=== PATIENT | male | born 1960 | race Caucasian/White ===

== ENCOUNTER 2019-01-17 22:49 | Inpatient (IN) ==
--- NOTE | 2019-01-17 23:39 | EKG Report ---
Test Performed on : 01/17/2019 11:14:55 PM Test Reason : ams Blood Pressure : / mmHG Vent. Rate : 070 BPM Atrial Rate : 070 BPM P-R Int : 126 ms QRS Dur : 084 ms QT Int : 418 ms P-R-T Axes : 041 031 054 degrees QTc Int : 451 ms Normal sinus rhythm. with sinus arrhythmia. Junctional ST depression, probably normal Borderline ECG No previous ECGs available Unconfirmed Result
[2019-01-18 00:02] LABS: BASO# 0.02 X1000 (0.0-0.2); BASO% 0.1 % (0.0-0.8); EOS# 0.01 X1000 (0.0-0.7); HEMATOCRIT 50.5 % (42.0-52.0); HEMOGLOBIN 16.6 g/dL (14.0-18.0); IMM GRAN% 0.4 % (0.0-0.5); LYMPH# 2.18 X1000 (1.2-3.4); LYMPH% 7.8 % (20.5-51.1); MCH 28.6 PG (27-31); MCHC 32.9 g/dL (33-37); MCV 86.9 FL (81-99); MPV 11.7 FL (7.4-10.4); NEUT# 22.67 X1000 (1.4-6.5); NEUT% 80.7 % (42.2-75.2); PLT 287 X1000 (130-400); RBC 5.81 XMIL (4.7-6.1); RDW 13.6 % (11.5-14.5); WBC 28.08 X1000 (4.8-10.8)
[2019-01-18 00:08] LABS: INR 1.03; PROTIME 13.6 Seconds (11.0-16.0)
[2019-01-18 00:24] LABS: AGAP 21; ALB/GLOB RATIO 1.3; ALKALINE PHOSPHATASE 47 U/L (32-122); BUN 49 mg/dL (8-22); CALCIUM 10.5 mg/dL (8.8-10.2); CHLORIDE 98 mmol/L (98-107); COSMO 301; CREATININE 1.3 mg/dL (0.7-1.2); ESTIMATED GFR 57; GLUCOSE 146 mg/dL (70-104); GOT 323 U/L (10-34); GPT 76 U/L (10-44); POTASSIUM 4.3 mmol/L (3.5-5.1); SODIUM 143 mmol/L (136-145); TCO2 24 mmol/L (25-35); TOTAL PROTEIN 8.9 g/dL (6.3-8.3)
[2019-01-18] MEDS ORDERED: NS 1,000 ML IV ONE (00:27)
[2019-01-18 00:35] LABS: CK TOTAL > 20000 U/L (24-204)
--- NOTE | 2019-01-18 01:04 | PROVIDER DOCUMENTATION ---
This chart was entered by Meryl Wilson Scribe, acting as scribe for Raulito Licea MD. HPI-General Adult - General Chief Complaint: Stroke-Like Symptoms Stated Complaint: AMS Time Seen by Provider: 01/17/19 23:01 Source: EMS Unable to obtain history due to:: altered Allergies/Adverse Reactions: Patient Allergies Allergy/AdvReac Type Severity Reaction Status Date / Time No Known Allergies Allergy Verified 01/17/19 23:53 Home Medications: Home Medication List Medication Instructions Recorded Confirmed Last Taken Type Alprazolam 0.5 - 1 mg PO BID PRN 01/17/19 01/17/19 Unknown History Atenolol 01/17/19 01/17/19 Unknown History Duloxetine HCl 30 mg PO BID 01/17/19 01/17/19 Unknown History Hydrocodone/APAP 10 mg/325 mg 10 - 325 mg PO Q8H PRN 01/17/19 01/17/19 Unknown History [[place]-10] Morphine Sulfate [Morphine Sulfate 30 mg PO Q12H PRN 01/17/19 01/17/19 Unknown History ER] - History of Present Illness -Gen Adult Nature of Presenting Problems: pt is a 58 yr old male presenting via EMS from home, per EMS pt was found tonight lying in the floor by PD after family called for a welfare check. pt has not been seen or spoke to since Thursday morning, pt has right side facial droop, slurred speech and does not follow commands. pt smells strongly of urine. pt does admit to falling but unsure when. Review of Systems - Adult - REVIEW OF SYSTEMS - ADULT ROS:: unobtainable per condition Constitutional: reports: no symptoms reported Past History - Adult - PAST MEDICAL HISTORY-ADULT Review of Records: reports: Nursing Assessment Review, Medications Reviewed, Social history reviewed & non-contributory. Major Childhood Illnesses: reports: denies history Cardiovascular: reports: denies history Respiratory: reports: denies history Gastrointestinal: reports: denies history Obstetrical/Gynecological: reports: denies history Genitourinary: reports: denies history Musculoskeletal: reports: denies history Neurological: reports: denies history Endocrine/Immune: reports: denies history Other Conditions: reports: denies history - IMMUNIZATION STATUS Childhood Immunizations: See Nurse Assessment Flu Vaccine: See Nurse Assessment - FAMILY HISTORY Family History: reviewed, not pertinent - SOCIAL HISTORY Living Situation: alone Physical Exam-General - PHYSICAL EXAM-ADULT Exam Limited by: pt does not follow commands Initial Vital Signs Reviewed: Yes - CONSTITUTIONAL General Appearance: slow to respond, obtunded, other (right facial droop) - RESPIRATORY Respiratory: lungs clear, normal breath sounds, no respiratory distress, no accessory muscle use - CARDIOVASCULAR Cardiovascular: normal peripheral pulses, regular rate, rhythm - GASTROINTESTINAL (ABDOMEN) Abdominal Exam: non tender, soft - LYMPHATIC Lymphatic: no adenopathy - SKIN Integumentary: diaphoresis, decubitus (4x4cm decubitis ucler to right hip), ecchymosis (bruising to right lateral, anterior ribs), pallor, other (blisters to right shoulder creases) - NEUROLOGIC Neurologic: facial droop (right facial droop), other (slurred speech) - PSYCHIATRIC Psych/Mental Status: disheveled Progress - PLAN OF CARE/RESULTS Progress/Plan/Lab Results: Orders Category Date Time Status CT HEAD/C-SPINE W/O CONTRAST [CT] Stat Exams 01/17/19 22:55 Ordered Result Diagrams: 01/17/19 23:48 01/17/19 23:48 - XRAY 1 XRAY Study: Pelvis, Hip Impression: See EMR Report Comparison with other Films: no prior study 2 XRAY Study: Chest Impression: See EMR Report Comparison with other Films: no prior study - CT/MRI 1 CT Study: Cervical Spine, Head Impression: Abnormal, See EMR Report Comparison with other Films: no prior study - CONSULTS/PCP/HOSPITALIST Notification #1 *Consult/PCP/Hospitalist*: Dr Mitchell Time Discussed: 23:45 Reason/Comments: discussed paln of care for possible admit Consult Disposition: other (consult neuro for possible transfer) Departure - Departure Date of Disposition Decision: 01/18/19 Time of Disposition Decision: 01:03 DIAGNOSIS: Acute right MCA stroke Rhabdomyolysis Qualifiers: Rhabdomyolysis type: non-traumatic Qualified Code(s): M62.82 - Rhabdomyolysis Decubitus ulcer Qualifiers: Pressure injury location: buttock Pressure injury stage: stage 2 Laterality: right Qualified Code(s): L89.312 - Pressure ulcer of right buttock, stage 2 Disposition: ADMITTED INPATIENT 09 Certified Medical Emergency: Emergent Condition: Stable Referrals and Follow-Ups: None,PCP [Primary Care Provider] - - Critical Care Note This patient required my direct & personal management of CC.: Yes Total Time (mins): 39 Critical Care Statement: This patient required my direct personal management to treat or rule out processes, the absence of which, could potentiallly result in sudden, clinically significant life or limb threatening deterioration. Attestation - Physician/ MAL Attestation Patient care was provided by Advanced Practice Provider:: No The physician spent face to face time with patient:: Yes Advanced Practice Provider documentation review:: Supervising physician onsite and consulted in the evaluation and care of this patient. The physician did have a face to face encounter with the patient. This chart was documented by the indicated scribe, (Meryl Wilson Scribe) and accurately reflects the services I performed and decisions made by me, Raulito Gracia MD, as attested by the provider's signature.
[2019-01-18] MEDS ORDERED: OFIRMEV 1000 MG/ISOTONIC SOLN 1,000 MG/100 ML BOTTLE IV ONE (02:49)
[2019-01-18] MEDS ORDERED: NS 1,000 ML IV SCH (03:15)
[2019-01-18] MEDS: ZOSYN 3.375 GM in NS 50 ML IV SCH ×4 (03:54→20:58)
--- NOTE | 2019-01-18 06:14 | Diag Imaging Result Doc PS360 ---
PELVIS - 01/17/2019 INDICATION: fall TECHNIQUE: One view COMPARISON: None FINDINGS: Positioning is improper. No obvious fractures. No dislocation. There is mild bilateral hip osteoarthritis. IMPRESSION: No definite acute injury. Electronically signed by Cameron Sainz 01/18/2019 6:12 AM
--- NOTE | 2019-01-18 06:21 | Diag Imaging Result Doc PS360 ---
CHEST-1 VIEW - 01/17/2019 INDICATION: stroke like symptoms COMPARISON: None FINDINGS: There is right hemidiaphragm elevation. There is some mild nonspecific atelectasis or infiltrate throughout the right lung. The left lung appears grossly clear. Heart size is normal. IMPRESSION: Nonspecific findings. Electronically signed by Cameron Sainz 01/18/2019 6:18 AM
--- NOTE | 2019-01-18 07:24 | Diag Imaging Result Doc PS360 ---
EXAM: CT HEAD/C-SPINE W/O CONTRAST INDICATION: ams TECHNIQUE: This exam was performed using automated exposure control, adjustment of mA or kV according to patient size, and/or use of iterative reconstruction technique. COMPARISON: None. FINDINGS: Head: There is multifocal hypodensity in the right MCA distribution involving the temporal, frontal, and parietal lobes and including the right basal ganglion consistent with a recent infarct, likely subacute. There is minimal right ventricular effacement and mild sulcal effacement on the right as a result of the associated edema. No discrete mass or intracranial hemorrhage is appreciated. The surrounding soft tissues are essentially unremarkable. The calvaria is intact. C-spine: There has been prior anterior cervical fusion at C5-6. Metallic hardware is in place. There is mild endplate degenerative change at several other cervical levels with small marginal osteophytes. The central canal appears to be largely patent. Otherwise, there is no discrete fracture, subluxation, or intrinsic osseous lesion. The surrounding soft tissues are essentially unremarkable. IMPRESSION: 1.Recent right MCA distribution infarct as described that is likely subacute. 2.Postsurgical and mild degenerative changes but no evidence of fracture or other definite acute C-spine injury. Electronically signed by Shakeel Chris 01/18/2019 7:21 AM
[2019-01-18] MEDS ORDERED: ZYVOX 600 MG/D5W 600 MG/300 ML IVPB IV SCH (08:30)
--- NOTE | 2019-01-18 09:23 | Diag Imaging Result Doc PS360 ---
EXAM: MRI BRAIN W/WO CONTRAST INDICATION: CVA COMPARISON: CT head dated 01/17/2019. No prior MRI brain is available for comparison. FINDINGS: There is a known acute or early subacute infarct involving the right MCA distribution that was also seen on the previous CT. There is patchy multifocal restricted diffusion in involving the right frontal, temporal, and parietal lobes including significant involvement of the right basal ganglion. There is corresponding T2/FLAIR hyperintensity. There is associated mild effacement of the right lateral ventricle and mild sulcal effacement on the right related to cytotoxic edema from the recent infarct. There is no evidence of intracranial mass or intracranial hemorrhage. There are diminished flow voids involving the right MCA and their virtually absent flow voids involving the distal right ICA with little enhancement indicating occlusion. Otherwise, no abnormal intracranial enhancement is appreciated. The surrounding soft tissues and bony structures are essentially unremarkable. IMPRESSION: Recent infarct involving the right MCA distribution as detailed above that was also seen on CT. Please see above discussion. Electronically signed by Shakeel Chris 01/18/2019 9:21 AM
--- NOTE | 2019-01-18 09:26 | PROGRESS NOTE ---
DATE: 01/18/2019 SUBJECTIVE: The patient is lying bed. He is not able to move his left side. He is following commands on and off. He is able to say his name and date of but his speech is slurred. He has a recent right MCA distribution infarction likely subacute. I do not have any family members at the bedside but the patient apparently was found yesterday night on the floor by PD after family called for a Welfare Check. Apparently, the last time they talked to him was Thursday morning. He has leukocytosis. He has kidney injury, probably aspiration pneumonia, rhabdomyolysis. OBJECTIVE: Vital Signs: Temperature 99.5, pulse 111, respiratory rate 40, blood pressure 145/95, oxygen saturation 96 on 5 L of nasal cannula. HEENT: Head normocephalic. No trauma. He has left-sided facial weakness. Neck: Supple. No JVD. Central trachea. Chest: Coarse breath sounds bilaterally with some crepitus, rhonchi at the bases. Abdomen: Soft, nontender, nondistended. No hepatosplenomegaly. Extremities: No edema, no clubbing, no cyanosis. Skin: He has multiple pressure ulcers including his right upper arm, his right hip, his right chest, and right lateral area/metatarsal area of the right great toe. Also, he has a lesion probably because of pressures with his T-shirt at the level of the right upper armpit/axilla. Neurological examination: This patient alert. He is able to say his name and date of . His speech is slurred. He has left-sided weakness, and the strength of the right side is maybe 2-3/5 mostly upper extremity. LABORATORY: I will ask for a new CBC, CMP today. Laboratory from yesterday, WBC 28, hemoglobin 16.6, hematocrit 50.5, platelet count 287. Sodium 143, potassium 4.3, chloride 98, bicarbonate 24, BUN 49, creatinine 1.3, glucose 146, calcium 10.5, total bilirubin 1.2, AST 223, ALT 76, alkaline phosphatase 47. CK level more than 2000. ProBNP 445. Lactate level 3.3. ASSESSMENT AND PLAN: 1. Likely subacute right middle cerebral artery stroke. This patient has been placed on aspirin. We need to find out if this patient is able to swallow but I do not believe so. Neurology Department has been consulted. Blood pressure has been mostly in the 140s. Will monitor for now. 2. Sepsis like due to aspiration pneumonia. He does have leukocytosis, elevated lactic acid. He is tachypneic and tachycardic. He has been placed on broad-spectrum antibiotics, which I will continue. 3. Acute kidney injury with rhabdomyolysis. I have requested an evaluation by Nephrology Department. CK level is more than 20,000. He has been placed on IV fluids, which I will continue for now. I have requested also a new CMP today. 4. Hyperglycemia. I am not sure if this patient has a history of diabetes. I will ask for a hemoglobin A1c to rule it out. 5. Dehydration. Continue with IV fluids. 6. Multiple pressure ulcers. Will monitor for now. 7. Elevated liver function tests. I do not have previous records of this patient. Probably due to dehydration. Continue IV fluid. CRITICAL CARE TIME: 35 minutes. Neurology Department and Nephrology Department consulted. cc: Dru Marroquin MD
[2019-01-18 09:28] LABS: BASO# 0.03 X1000 (0.0-0.2); BASO% 0.1 % (0.0-0.8); HEMATOCRIT 47.7 % (42.0-52.0); IMM GRAN# 0.08 X1000 (0.0-0.04); IMM GRAN% 0.3 % (0.0-0.5); MCH 29.5 PG (27-31); MCHC 33.5 g/dL (33-37); MONO# 3.17 X1000 (0.11-0.59); MONO% 11.6 % (1.7-9.3); MPV 11.8 FL (7.4-10.4); NEUT# 21.91 X1000 (1.4-6.5); PLT 260 X1000 (130-400); RBC 5.42 XMIL (4.7-6.1); RDW 13.6 % (11.5-14.5); WBC 27.39 X1000 (4.8-10.8)
--- NOTE | 2019-01-18 09:30 | HISTORY AND PHYSICAL ---
PRIMARY CARE PHYSICIAN: Unknown. CHIEF COMPLAINT: Altered mental status, slurred speech. HISTORY OF PRESENTING ILLNESS: A 58-year-old male with a history of hypertension, who apparently was found by his family members on the floor being altered and having slurred speech. As per family members the last time they had contact with the patient was about 2 days ago. It seems that he possibly may have been on the floor for the past 2 days. He was brought to the emergency department. He had a CT of the head done which did show a right MCA stroke. His case was discussed with the stroke neurologist at [facility] who stated that he is not a tPA candidate and could remain at [facility] to be managed. The patient is a poor historian. Most of the history is obtained from family members. PAST MEDICAL HISTORY: Hypertension. PAST SURGICAL HISTORY: Bilateral ankle surgery and cervical fusion. ALLERGIES TO: Eggs. CURRENT MEDICATIONS: He does not know and nursing staff will reconcile. SOCIAL HISTORY: He is a former smoker. Currently was vaping. History of alcohol abuse in the past. History of drug use in the past. FAMILY HISTORY: No history of coronary disease. REVIEW OF SYSTEM: Unable to obtain due to patient's current condition. PHYSICAL EXAMINATION: GENERAL: The patient seems ill-appearing, seems to have increased respiratory rate. VITAL SIGNS: Temperature 101.1 degrees, pulse 75, respirations 22, blood pressure 145/96. HEENT: Atraumatic, normocephalic. PERRLA. NECK: No masses. CHEST: Rhonchi. CARDIOVASCULAR: Regular rate and rhythm. ABDOMEN: Soft. Positive bowel sounds. EXTREMITIES: Trace edema. NEUROLOGIC: He is awake and arousable. He follows some commands. Strength 0/5 left upper and lower extremity. 4/5 right upper extremity and right lower extremity. Speech is slurred. : No bladder distention. SKIN: Warm. LABORATORIES AND STUDIES: Sodium 143, potassium 4.3, chloride 98, CO2 24, BUN is 49, creatinine is 1.3, glucose 146. Creatine kinase is 20,000. WBCs 28.08, hemoglobin 16.6, hematocrit 50.5, platelets 287,000. CT of the head shows acute MCA infarct. ASSESSMENT: This is a 58-year-old male with a history of hypertension, who was brought to the emergency department after being found on the floor. It seems that he has been lying on the floor for the past 2 days. He was evaluated in the emergency department. He had a CT of the head, which did show acute MCA stroke. His case was discussed with stroke neurologist in [facility] who stated that he is not a tPA candidate and can remain at [facility] to be managed. Subsequently patient will be admitted to ICU for further management. 1. Acute CVA. 2. Probable aspiration pneumonia. 3. Leukocytosis. 4. Rhabdomyolysis. PLAN: 1. We will admit patient to ICU. 2. Continue with stroke workup. 3. Consult Neurology. 4. We will schedule patient for MRI of the brain. 5. We will check blood cultures. Start patient on IV antibiotics. 6. We will check his laboratories. 7. We will continue with IV fluid hydration. 8. Put patient on DVT prophylaxis SCD. 9. The patient's condition is guarded. Discussed this with family member. 10. We will continue to follow and reassess. Make further recommendation based on patient's clinical course. cc: Calderon Mitchell MD
[2019-01-18 09:39] LABS: MAGNESIUM 2.2 mg/dL (1.5-2.7); PHOSPHORUS 3.3 mg/dL (2.7-4.5)
[2019-01-18 09:45] LABS: ALB/GLOB RATIO 1.1; ALBUMIN 3.8 g/dL (3.5-5.0); CALCIUM 8.9 mg/dL (8.8-10.2); CREATININE 1.3 mg/dL (0.7-1.2); POTASSIUM 3.8 mmol/L (3.5-5.1); TOTAL BILIRUBIN 1.13 mg/dL (0.20-1.00); TOTAL PROTEIN 7.4 g/dL (6.3-8.3)
[2019-01-18 10:01] LABS: BANDS 4 % (0-1); LYMPHS 6 % (21-51); MONO 4 % (1-9); SEGS 86 % (42-75)
[2019-01-18] MEDS: ASPIRIN PO SCH (10:06)
[2019-01-18] MEDS: SODIUM BICARBONATE 8.4% 50 MEQ in D5 1/2 NS 1,000 ML IV SCH ×2 (10:46→20:58)
[2019-01-18] MEDS: ZYVOX 600 MG/D5W 600 MG/300 ML IVPB IV SCH ×2 (10:47→23:54)
--- NOTE | 2019-01-18 13:34 | NEPHROLOGY CONSULTATION ---
DATE: 01/18/2019 REASON FOR CONSULTATION: Rhabdomyolysis. HISTORY OF PRESENT ILLNESS: Mr. Jose is a 58-year-old, white male that we have never seen before. He has a creatinine of 1.3 on presentation but, again, we have no past history. He was found down at home and was probably down for several days before being brought into the hospital where he had slurred speech. Awake and alert but flaccid on the left. He underwent an initial evaluation in the emergency room which included blood pressure 145/96, with temperature 101.[address] head performed on the found recent right MCA infarct that is subacute and postsurgical changes that were chronic in the C-spine. His initial CK was greater than 20,000. He has been treated with IV fluid resuscitation and he has had 400 mL of urine output. We were asked to consult and assist with management of his rhabdomyolysis and minimizing risk for acute kidney injury. PAST MEDICAL HISTORY: As above. He also has a history of hypertension. HOME MEDICATIONS: Include fluoxetine, hydrocodone, morphine ER, alprazolam, atenolol. ALLERGIES: None. SOCIAL HISTORY: Not obtainable. FAMILY HISTORY: Not obtainable. REVIEW OF SYSTEMS: Are not obtainable. The patient is awake and he follows simple commands but he was nonverbal. PHYSICAL EXAMINATION: Vital Signs: Blood pressure 145/95, heart rate 111, respirations 40, temperature 99.5 degrees. General: Middle-aged man, chronically ill, no distress. Skin: Warm and dry. Conjunctivae are pink. Pupils are equal. Oropharynx is dry. Neck: Neck veins are not distended. Trachea is midline. Heart: Regular. No gallops. Lungs: Equal, shallow. No crackles. Abdomen: Soft, nontender. Bowel sounds present. No organomegaly, masses, or bruits. Extremities: No edema, clubbing, or cyanosis. Neurologic Examination: He is flaccid on the left. He is able to move his right hand and foot to command but eyeglass fitter strength is very weak. IMPRESSION: Rhabdomyolysis. His creatinine is 1.3 but it has not risen over the first 10 hours of admission. Likely, this is baseline chronic kidney disease secondary to his hypertension. We will check urine electrolytes, urinalysis, urine protein, etc. Renal ultrasound. I will change his intravenous fluids to contain sodium bicarbonate and infuse at 100 mL an hour. Monitor his CK on a daily basis and continue intravenous fluids. No other changes. cc: Evgeny Goldstein MD
--- NOTE | 2019-01-18 15:21 | ECHO REPORT ---
ORDER DATE: 01/18/2019 INDICATION: CVA. FINDINGS: 1. The right atrium appears normal in size at 3.7 cm. 2. Mild tricuspid regurgitation. 3. Normal RV size and systolic function. 4. No significant pulmonic insufficiency. 5. Normal left atrial size with a volume index of 20. 6. No mitral prolapse. Trace mitral regurgitation. 7. Normal LV size, end-diastolic dimension of 4.6. Normal wall thicknesses with a posterior and interventricular septal wall thickness 1.1 and 0.9 cm respectively. Normal LV systolic function. Estimated EF is 60%. No obvious wall motion abnormalities but limited visualization of the endocardial borders. 8. Aortic valve opens well. It is trileaflet. No evidence of stenosis or insufficiency. 9. Aorta appears normal in visualized segments. 10. No pericardial effusion seen. cc: MD Calderon Grande MD
[2019-01-18 15:24] LABS: URINE SOURCE CATH
[2019-01-18 15:37] LABS: BILIRUBIN URINE NEGATIVE (NEGATIVE); BLOOD URINE MODERATE (NEGATIVE); COLOR YELLOW; GLUCOSE URINE 300 mg/dL (NEGATIVE); KETONE URINE NEGATIVE (NEGATIVE); LEUKOCYTES URINE NEGATIVE (NEGATIVE); NITRITE URINE NEGATIVE (NEGATIVE); PROTEIN URINE 70 mg/dL (NEGATIVE); SP GRAVITY URINE 1.039; TURBIDITY URINE CLEAR (CLEAR); UROBILINOGEN URINE NORMAL (NORMAL)
[2019-01-18 15:47] LABS: UR EPITHELIAL CELLS <10 /HPF (<10); URINE BACTERIA NEGATIVE /HPF; URINE RBC <10 /HPF (<10); URINE WBC <10 /HPF (<10)
--- NOTE | 2019-01-18 16:30 | Diag Imaging Result Doc PS360 ---
EXAM: US RENAL 2 (RETROPER) COMPLETE HISTORY: decreased renal function TECHNIQUE: Renal ultrasound COMPARISON: None. FINDINGS: The right kidney measures 10.4 x 4.5 x 4.6 cm. Normal renal echotexture and cortical thickness. No renal stone or hydronephrosis. No renal mass. The left kidney measures 9.3 x 4.4 x 4.6 cm. Normal renal echotexture and cortical thickness. No renal stones or hydronephrosis. No renal mass. The urinary bladder is not distended. IMPRESSION: Normal renal ultrasound. Electronically signed by Sukhjinder Valdes 01/18/2019 4:28 PM
[2019-01-18 16:34] LABS: URINE CRYSTALS URIC ACID PRESENT; URINE YEAST NONE SEEN
--- NOTE | 2019-01-18 20:41 | CONSULTATION ---
DATE OF CONSULTATION: 01/18/2019 REASON FOR CONSULTATION: Stroke. HISTORY OF PRESENT ILLNESS: This is a 58-year-old, male who presented yesterday evening for admission. History is from the patient's sister and neighbor. The patient was last spoken to on Thursday, 2 days ago, and he was last seen, I believe, on Thursday. On Thursday, the neighbor says his speech was slurred when he was on the phone, and he complained he did not feel well. Ultimately, he was found down last night after a welfare check. He had left-sided weakness and slurred speech. He was confused. Blood pressure on arrival was 145/96. Head CT showed recent right MCA distribution infarct likely subacute. MRI today again showed recent infarct in the right MCA distribution felt to be acute to early subacute. There is not a personal history of stroke, seizure or major neurologic event. His sister tells me that for the last year or 2 the patient has become paranoid. He has worried that the FBI is listening in to his phone calls and watching him though his TV. He believes people are out to get him. She tells me that there has been passed drug abuse of some sort, though the patient denies this. PAST MEDICAL HISTORY: Hypertension, cervical fusion, bilateral ankle surgery, anxiety. FAMILY HISTORY: Positive for stroke in mother. SOCIAL HISTORY: He lives alone. He is a former smoker and does currently vape. There is a history of drug abuse per his sister, though the patient denies it. I believe there was occasional alcohol in the past. ALLERGIES: Reviewed in the chart. MEDICATIONS: He was not taking antiplatelet or blood thinner per family. They believe he was taking lisinopril possibly for high blood pressure. He was also taking Xanax REVIEW OF SYSTEMS: Balance of 12 conducted and is otherwise negative except that detailed in the HPI. PHYSICAL EXAMINATION: Vital signs: Current afebrile, early this morning 101, blood pressure 150/96, pulse 96, respirations 18, 97% on room air. Mr. Jose is supine in bed with head of bed elevated. He is awake, a little bit drowsy but easily wakes, reasonably attentive. He is able to state his name, location, [facility], the president. He said the year was 1918. He did not state the month. He followed simple commands. There was no language disturbance on bedside testing. He is dysarthric and at times difficult to understand. Pupils appear to be equal, round and reactive, although he vigorously resists passive eye opening after shutting them in response to bright light stimulus. Gaze is conjugate, and there is a right gaze preference. He directs his eyes to the midline, but I did not get him to cross beyond that point. He attends more from the right compared to the left, but he does attend from the left. There is a right lower facial droop. He does not participate well. There may be a left field cut. There is a left hemiparesis involving the arm more than leg. 2/5 in the arm. He is at least 4/5 on the right, although he continues to not participate entirely with the exam in general. Reflexes are 2+ brisk in the knees. Could not get ankle jerks, and there is limited mobility about the ankles. Plantar responses upgoing on the left, downgoing on the right. Could not elicit clonus. He does not participate with [id number] and rapid alternating movements. He responds to noxious stimuli in his extremities. DIAGNOSTICS: As per above MRI was personally reviewed. Again recent infarct involving the right MCA distribution with mild effacement of the right lateral ventricle and mild sulcal effacement on the right. There is mention of diminished flow voids involving the right MCA and virtually absent flow void involving the distal right ICA with little enhancement indicating occlusion. LABORATORY DATA: White count 27, BUN 45, creatinine of 1.3, AST 323, ALT 76. Blood cultures are pending. ASSESSMENT AND PLAN: 1. Acute to subacute right middle cerebral artery distribution ischemic stroke. Last known normal was 4 days ago. Typical stroke workup is underway. Agree with aspirin. Cautious blood pressure management. Avoid hypotension. Continue neuro checks. PT, OT, speech therapy for swallow evaluation if this has not already been done. There is some effacement associated with the ischemic region on imaging, though clinically he appears stable on my exam. Would continue with neuro checks and wound repeat the head CT should worsening symptoms occur or if he has difficulty arousing, headache, vomiting. 2. There seems to be mild encephalopathy. This could be multifactorial in the setting of acute kidney injury. 3. Elevated liver function tests and possible sepsis. Continue to monitor for clinical improvement as his underlying medical conditions are improved. Thank you for the consultation. cc: Jessica Sauceda MD
[2019-01-18] MEDS ORDERED: ZOFRAN IV PRN (21:08)
[2019-01-18] MEDS: MORPHINE IV PRN (21:17)
[2019-01-18 21:41] LABS: UR CREAT RANDOM 113.6 mg/dL (14-26)
[2019-01-19] MEDS: ZOSYN 3.375 GM in NS 50 ML IV SCH ×2 (03:10→08:26)
[2019-01-19] MEDS: MORPHINE IV PRN ×2 (03:51→10:37)
[2019-01-19 04:57] LABS: BASO# 0.01 X1000 (0.0-0.2); HEMATOCRIT 47.9 % (42.0-52.0); HEMOGLOBIN 15.9 g/dL (14.0-18.0); IMM GRAN# 0.08 X1000 (0.0-0.04); IMM GRAN% 0.4 % (0.0-0.5); LYMPH# 2.52 X1000 (1.2-3.4); LYMPH% 11.1 % (20.5-51.1); MCH 29.3 PG (27-31); MCHC 33.2 g/dL (33-37); MCV 88.4 FL (81-99); MONO% 12.4 % (1.7-9.3); MPV 11.7 FL (7.4-10.4); NEUT% 76.1 % (42.2-75.2); PLT 231 X1000 (130-400); RBC 5.42 XMIL (4.7-6.1); RDW 13.5 % (11.5-14.5); WBC 22.61 X1000 (4.8-10.8)
[2019-01-19 05:11] LABS: HEMOGLOBIN A1C 5.7 % (4.8-6.0)
[2019-01-19 05:16] LABS: LYMPHS 8 % (21-51); MONO 6 % (1-9); SEGS 86 % (42-75)
[2019-01-19 05:49] LABS: AGAP 16; ALB/GLOB RATIO 0.8; ALBUMIN 3.1 g/dL (3.5-5.0); ALKALINE PHOSPHATASE 40 U/L (32-122); BUN 32 mg/dL (8-22); CALCIUM 8.3 mg/dL (8.8-10.2); CHLORIDE 108 mmol/L (98-107); COSMO 304; CREATININE 1.1 mg/dL (0.7-1.2); ESTIMATED GFR > 60; GLUCOSE 175 mg/dL (70-104); GOT 164 U/L (10-34); GPT 77 U/L (10-44); POTASSIUM 3.6 mmol/L (3.5-5.1); SODIUM 147 mmol/L (136-145); TCO2 23 mmol/L (25-35); TOTAL BILIRUBIN 0.89 mg/dL (0.20-1.00); TOTAL PROTEIN 6.9 g/dL (6.3-8.3)
--- NOTE | 2019-01-19 06:50 | Diag Imaging Result Doc PS360 ---
CHEST-1 VIEW - 01/19/2019 INDICATION: R/O pneumonia COMPARISON: 01/17/2019 FINDINGS: Lung volumes are improved. There is some faint questionable atelectasis or infiltrate in the left lung base. The right lung appears clear. Heart size is normal. IMPRESSION: Nonspecific findings. Electronically signed by Cameron Sainz 01/19/2019 6:48 AM
[2019-01-19] MEDS: CYMBALTA PO SCH ×2 (08:26→20:51)
[2019-01-19] MEDS: ASPIRIN PO SCH (08:26)
[2019-01-19] MEDS: MS CONTIN PO PRN ×2 (08:27→22:35)
--- NOTE | 2019-01-19 08:32 | PROGRESS NOTE ---
DATE: 01/19/2019 SUBJECTIVE: This patient is still lying in bed. He is not able to move his left side. He has been following commands on and off. At this moment, he is more sleepy because he just received pain medication. I will ask Occupational Therapy to evaluate this patient also. His urine output seems to be better, as well as BUN and creatinine, he is slightly hypernatremic but he has been on D5 half NS and since this patient passed a swallow evaluation, I requested the nurse to give him more water. I will recheck a BMP today in the afternoon. PHYSICAL EXAMINATION: Vital signs: Temperature 98.7 degrees, pulse 124, respiratory rate 38, blood pressure 123/88. Oxygen saturation 94% on 5 L nasal cannula/ HEENT: Head normocephalic, no trauma. PERRLA. Left-sided facial weakness. Neck: Supple. No JVD. Central trachea. Chest: Coarse breath sounds bilaterally with bilateral crackles and rhonchi at the bases. Abdomen: Soft, nontender, nondistended. No hepatosplenomegaly. Extremities: No edema no clubbing no cyanosis. Skin: He has multiple pressure ulcers including his right upper arm, his right hip, his right chest and right lateral area/metatarsal area of the right great toe. Also, he has a probably pressure lesion at the level of the right armpit/axilla, probably due to contact with his T-shirt. Neurological: Patient is sleepy at this moment, yesterday he was able to say his name and date of . His speech was slurred, but at this moment, he is sleepy because he just received pain medication. LABORATORY DATA: WBC 22.6, hemoglobin 15.9, hematocrit 47.9, platelet 231,000. Sodium 147, potassium 3.6, chloride 108, bicarbonate 23, BUN 32, creatinine 1.1, glucose 175, calcium 8.3. Total bilirubin 0.89, AST 164, ALT 77, alkaline phosphatase 40, CK level 8221, albumin 3.1. ASSESSMENT AND PLAN: 1. Acute to subacute right middle cerebral artery distribution ischemic stroke. Continue with aspirin. Last time he was seen normal apparently was last Thursday, 4 to 5 days ago. This patient passed a swallow evaluation. He has been placed on a pureed diet. We will increase the water intake since he is a little bit hypernatremic and I will continue with the same management for now. 2. Sepsis, likely due to aspiration pneumonia. He also has a positive blood culture 2/2 that showed gram-positive cocci. He is on Zyvox and I will continue with Zosyn as well. I will request an evaluation by Infectious Disease Department, I will avoid nephrotoxic medications. 3. Acute kidney injury with rhabdomyolysis. Nephrology Department on board. We will continue with IV fluids, half normal saline with bicarbonate. We will monitor this patient closely. It looks like he is getting better. Urine output is improving. 4. Hyperglycemia with a hemoglobin A1c of 5.7. We will monitor for now. No diabetes. 5. Dehydration. He seems to be euvolemic now. Continue with IV fluids. 6. Multiple pressure ulcers, will monitor for now. Probably one of them can be the source of infection. 7. Elevated liver function test, likely due to sepsis. I do not have any previous records of liver function tests on this patient. We will continue with IV fluids. They are getting better. 8. Sepsis, with a positive culture that showed gram-positive cocci. He is tachypneic and tachycardic. Probably also he has aspiration pneumonia. 9. Likely aspiration pneumonia. X-ray today showed a left lower lung infiltrate. I will continue with both Zosyn and linezolid to cover this patient. Also I have requested an evaluation by Infectious Disease Department. 10. Nutritional status. This patient has been evaluated already and he passed a swallow evaluation, he has been placed on a pureed diet, and I have requested to give him more water due to his mild hypernatremia. 11. Mild hypernatremia, as above. CRITICAL CARE TIME: 35 minutes. cc: Dru Marroquin MD
[2019-01-19] MEDS: SODIUM BICARBONATE 8.4% 50 MEQ in D5 1/2 NS 1,000 ML IV SCH ×2 (08:36→19:44)
[2019-01-19] MEDS ORDERED: LASIX IV ONE ×2 (09:05→10:28)
--- NOTE | 2019-01-19 09:53 | EKG Report ---
Test Performed on : 01/19/2019 03:29:21 AM Test Reason : ICU. NO EKG ORDER FOR MUSE Blood Pressure : / mmHG Vent. Rate : 151 BPM Atrial Rate : 151 BPM P-R Int : 116 ms QRS Dur : 066 ms QT Int : 328 ms P-R-T Axes : 075 027 026 degrees QTc Int : 519 ms Sinus tachycardia. Nonspecific ST abnormality Abnormal ECG When compared with ECG of 17-JAN-2019 23:14, (Unconfirmed) Vent. rate has increased BY 81 BPM T wave inversion now evident in Inferior leads Confirmed by Oscar Ashton MD ([id number]) on 01/20/2019 7:41:51 PM
[2019-01-19] MEDS: ZYVOX 600 MG/D5W 600 MG/300 ML IVPB IV SCH (10:37)
[2019-01-19] MEDS ORDERED: ROCEPHIN 2 GM in NS 50 ML IV SCH (12:00)
--- NOTE | 2019-01-19 12:39 | PROGRESS NOTE ---
DATE: 01/19/2019 SUBJECTIVE: Mr. Jose has recent right hemisphere stroke. Dr. Sauceda saw him yesterday. He presented with slurred speech and left-sided weakness. There is question of baseline cognitive and/or personality change. There was evidence of aspiration pneumonia. Recent systolic blood pressures have ranged 100s to 120s. Brain MRI showed findings consistent with acute right hemisphere infarction. On exam, he seemed to be sleeping, but was easily awake and alert. He was attentive to me and followed simple commands with his right limbs. He moved his right arm purposefully. He did not move the left limbs spontaneously or to command. Left arm is flaccid. There appears to be left hemianopia, but findings on visual field testing are inconsistent. When I held his left hand in his right visual field, he identified it as a hand and said "it must be my hand," but he did not seem convinced the hand belonged to him. He could not answer correctly with proprioception testing in the left fingers. I do not have anything to add to Dr. Sauceda's impression and suggestions yesterday. He seems to be stable and improving with nondominant right hemisphere infarction. Further plans will depend on his clinical course. I discussed uncertain prognosis with sister at the bedside. Thanks for asking Neurology to see Mr. Jose. cc: MD CLAIRE Mchugh III
--- NOTE | 2019-01-19 14:06 | EKG Report ---
Test Performed on : 01/19/2019 11:50:26 AM Test Reason : TACHYCARDIA Blood Pressure : / mmHG Vent. Rate : 131 BPM Atrial Rate : 131 BPM P-R Int : 122 ms QRS Dur : 068 ms QT Int : 338 ms P-R-T Axes : 046 010 037 degrees QTc Int : 499 ms Sinus tachycardia. Nonspecific ST abnormality Abnormal ECG When compared with ECG of 19-JAN-2019 03:29, (Unconfirmed) No significant change was found Confirmed by Oscar Ashton MD ([id number]) on 01/20/2019 7:42:55 PM
--- NOTE | 2019-01-19 14:24 | INFECTIOUS DISEASE CONSULT REP ---
DATE: 01/19/2019 CONCLUSION: Patient is admitted to the hospital with a stroke. He has a gram-positive coccal bacteremia, the exact origin of which is uncertain to me. He may have a pneumonia and the gram- positive coccus could be a pneumococcus. His urinalysis does not show any bacteria or white cell, so I doubt the gram-positive coccus is coming from a urinary tract infection. His examination of his abdomen was not tender at all and I doubt that the gram-positive coccus originated from his abdomen. RECOMMENDATIONS: I have switched the patient to Rocephin. The patient will require a 6-week course of IV antibiotics because he has metal in his ankles and most likely in his cervical spine also and these structures could have become infected hematogenously. DISCUSSION: The patient was not able to give a history. He was admitted to the hospital and found to have a stroke. [place] [address], hemoglobin 15.9, platelet count 231,000. Creatinine is 1.1. GFR is greater than 60. The AST is 164. Urinalysis showed no white cells or bacteria. MRI of the brain showed an infarct. Chest x-ray shows left lower lobe infiltrate/atelectasis. Echocardiogram showed no vegetations. REVIEW OF SYSTEMS: Unfortunately I was unable to get this from the patient. PAST MEDICAL HISTORY: Positive for hypertension, aortic insufficiency PAST SURGICAL HISTORY: Positive for bilateral ankle surgery and cervical fusion. ALLERGIES: No drug allergies. Patient's chart lists allergies to chicken, eggs and mayonnaise. MEDICATIONS TAKEN AT HOME: Include alprazolam, atenolol, duloxetine, hydrocodone, and morphine. SOCIAL HISTORY: Patient lives in [place]. He is . He lives alone, has a dog as a pet. He stopped smoking cigarettes 30 years ago. According to his sister, he does not use illicit drugs and he is not an alcoholic. FAMILY HISTORY: Positive for myocardial infarction and stroke. PREVIOUS HOSPITALIZATIONS AND OPERATIONS: He has had dental implants done and also he has had surgery on his ankle and cervical spine. PHYSICAL EXAMINATION: Vital Signs: Temperature is 99.5 degrees, pulse 116, respiratory rate 36, blood pressure 121/80. Patient is 185 pounds. General: This is an obese, middle-aged male. He is in no acute distress. Head/Eyes/Ears/Nose/Throat: I really could not determine how well he could hear my spoken words or see near objects. He does not have any drainage from his nose or ears. Neck: No meningismus. Lungs: Clear to auscultation. Cardiovascular: Regular heart rate. Abdomen: Soft and nontender. Neurologic: The patient does not have a tremor. He did move his right hand and right foot. He appeared to have a left hemiplegia. Integument: No rash noted. Thank you for the consult. cc: Mansoor Chamberlain MD
--- NOTE | 2019-01-19 18:12 | Diag Imaging Result Doc PS360 ---
EXAM: US ABDOMEN-COMPLETE HISTORY: bacteremia TECHNIQUE: Abdominal ultrasound COMPARISON: None. FINDINGS: The pancreas, aorta, and inferior vena cava are obscured. There is fatty infiltration of the liver. It is difficult to penetrate. The lower pole the right kidney is poorly seen. No right-sided hydronephrosis. The gallbladder is distended. No stones. The common bile duct measures 4 mm. Normal left kidney. No hydronephrosis. Normal spleen. No ascites. IMPRESSION: Fatty infiltration of the liver Electronically signed by Sukhjinder Valdes 01/19/2019 6:09 PM
--- NOTE | 2019-01-19 19:48 | NEPHROLOGY PROGRESS NOTE ---
DATE: 01/19/2019 SUBJECTIVE: He has been able to talk to the staff. He is asleep and difficult to arouse currently. OBJECTIVE: Blood pressure 122/90, heart rate 125, respirations 36, temperature 99.5 degrees.General: No acute distress. Skin: Warm and dry. Neck: Neck veins are not distended. Heart: Regular and tachycardic. Lungs: Equal breath sounds. No crackles. Abdomen: Soft. Bowel sounds present. Extremities: No edema, clubbing, or cyanosis. IMPRESSION AND PLAN: Rhabdomyolysis. CK is improving, 8200 today. He has not suffered acute kidney injury in the presence of his rhabdomyolysis. He does have modest hypernatremia today with sodium 147. His IV fluids are hyponatremic with sodium of 125. We will continue these as ordered. cc: Evgeny Goldstein MD
[2019-01-20 05:35] LABS: BASO# 0.01 X1000 (0.0-0.2); BASO% 0.1 % (0.0-0.8); HEMATOCRIT 44.3 % (42.0-52.0); HEMOGLOBIN 14.3 g/dL (14.0-18.0); IMM GRAN# 0.07 X1000 (0.0-0.04); IMM GRAN% 0.4 % (0.0-0.5); LYMPH# 2.45 X1000 (1.2-3.4); LYMPH% 13.6 % (20.5-51.1); MCH 29.3 PG (27-31); MCHC 32.3 g/dL (33-37); MCV 90.8 FL (81-99); MONO# 2.03 X1000 (0.11-0.59); MONO% 11.3 % (1.7-9.3); MPV 12.4 FL (7.4-10.4); NEUT# 13.43 X1000 (1.4-6.5); NEUT% 74.6 % (42.2-75.2); PLT 174 X1000 (130-400); RBC 4.88 XMIL (4.7-6.1); RDW 13.5 % (11.5-14.5); WBC 17.99 X1000 (4.8-10.8)
[2019-01-20 06:28] LABS: AGAP 15; ALB/GLOB RATIO 0.8; ALBUMIN 2.9 g/dL (3.5-5.0); ALKALINE PHOSPHATASE 42 U/L (32-122); BUN 30 mg/dL (8-22); CALCIUM 8.1 mg/dL (8.8-10.2); CHLORIDE 106 mmol/L (98-107); COSMO 305; CREATININE 1.1 mg/dL (0.7-1.2); ESTIMATED GFR > 60; GLUCOSE 145 mg/dL (70-104); GOT 122 U/L (10-34); GPT 68 U/L (10-44); PHOSPHORUS 2.5 mg/dL (2.7-4.5); POTASSIUM 3.3 mmol/L (3.5-5.1); SODIUM 149 mmol/L (136-145); TCO2 28 mmol/L (25-35); TOTAL BILIRUBIN 0.54 mg/dL (0.20-1.00); TOTAL PROTEIN 6.4 g/dL (6.3-8.3)
[2019-01-20] MEDS: SODIUM BICARBONATE 8.4% 50 MEQ in D5 1/2 NS 1,000 ML IV SCH (06:46)
--- NOTE | 2019-01-20 07:33 | Diag Imaging Result Doc PS360 ---
EXAM: CHEST-PORTABLE INDICATION: dyspnea TECHNIQUE: One view COMPARISON: 01/19/2019 FINDINGS: The trace opacity at the left lung base that probably represents mild atelectasis is approximately stable. No new consolidation is identified. Cardiac silhouette is stable. IMPRESSION: Stable chest. Electronically signed by Shakeel Chris 01/20/2019 7:31 AM
[2019-01-20] MEDS: ASPIRIN PO SCH (08:55)
[2019-01-20] MEDS: CYMBALTA PO SCH ×2 (08:55→21:07)
[2019-01-20] MEDS: D5W 1,000 ML IV SCH (10:53)
[2019-01-20] MEDS ORDERED: VANCOMYCIN IV PER PHARMACY MISC SCH (11:30)
--- NOTE | 2019-01-20 12:24 | PROGRESS NOTE ---
DATE: 01/20/2019 SUBJECTIVE: Mr. Jose has developed some right arm edema and evaluation of that is in progress. Sister at the bedside reports he seems a little bit more sluggish today, and she has attributed that to his recent pain medication dose. She reports another family member saw him move his left arm apparently purposefully, but no one has seen definite left hand movement or grasping. During my time at the bedside, he seems more sluggish than yesterday. I could get him briefly alert. Speech is dysarthric. He was not attentive to my commands. Tone is flaccid in the left arm. There was brisk withdrawal of the left foot after stroking sole. Left plantar response is briskly extensor. He did not withdraw the left arm following noxious stimulation I do not have any new thought or suggestion from Neurology standpoint. Thanks for asking us to see Mr. Jose. cc: MD CLAIRE Mchugh III
--- NOTE | 2019-01-20 12:55 | NEPHROLOGY PROGRESS NOTE ---
DATE: 01/20/2019 SUBJECTIVE: Asleep. OBJECTIVE: Vital Signs: Blood pressure 123/73, heart rate 108, respirations 27. Intake 2.9 L, output 1.1 L. General: No acute distress. Skin: Warm and dry. Neck: Neck veins are not distended. Heart: Regular and tachycardic. Lungs: Equal. No crackles or wheezes. Abdomen: Soft, nontender. Bowel sounds present. Extremities: There is 1+ edema. No clubbing or cyanosis. IMPRESSION: Rhabdomyolysis. CK is 6131 today. Should be low risk for acute kidney injury at this point. He has developed hypernatremia, so I will change his intravenous fluids to D5 water at 75 mL an hour. I will sign off, but if I can be of further assistance, please do not hesitate to call. cc: Evgeny Goldstein MD
[2019-01-20] MEDS ORDERED: VANCOMYCIN 2,300 MG in NS 500 ML IV ONE (13:00)
--- NOTE | 2019-01-20 14:26 | INFECTIOUS DISEASE PROGRESS NO ---
DATE: 01/20/2019 PRESENT ILLNESS: The patient has a Staphylococcus hominis bacteremia. I think this originated possibly from an IV site, although I do not find any IV site that looks infected at this time. The patient also has a swollen right arm and I am concerned that he may be developing a blood clot in that arm. MEDICATIONS: The patient is on Rocephin. PHYSICAL EXAMINATION: Vital Signs: Temperature is 99 degrees, pulse 108, respirations 27, blood pressure 123/73. General: This is an ill-appearing, middle-aged male. He has a depressed level of consciousness. Head, Eyes, Ears, Nose, and Throat: No drainage noted from the nose or ears. Neck: No meningismus. Lungs: Clear to auscultation. Cardiovascular: Heart rate is regular. Abdomen: Soft and nontender. Extremities: The right arm is swollen. Neurologic: The patient has a decreased level of consciousness today. The patient had a left hemiplegia. LAB AND X-RAY STUDIES: Ultrasound of the abdomen found the patient had a fatty liver. The creatinine is 1.1. GFR is greater than 60. AST is 122. Two blood cultures are growing Staphylococcus hominis. Chest x-ray shows left lower lobe atelectasis. CBC shows a white count of 17,990, hemoglobin 14.3, and platelet count 174,000. ASSESSMENT AND PLAN: The patient has a staphylococcus bacteremia. I have discontinued Rocephin and started the patient on vancomycin. I am also concerned that the patient may have a clot in his right arm and I have ordered a venous study of the right arm to look for a blood clot. The patient has staphylococcus bacteremia. I have switched him to vancomycin. The bacteremia could have arisen from an intravenous site. The patient has a staphylococcus bacteremia, the exact origin of which is uncertain to me. He has a swollen arm and there may be a blood clot in there. As regarding the patient's staphylococcus bacteremia, I have discontinued Rocephin and placed the patient on vancomycin. The patient does have bilateral ankle surgery and a cervical spine surgery. At all of these surgeries, metal was put into the patient. While the patient is bacteremic with staphylococcus, the organism could have infected the metal that is in the patient's joints and spine. My plan would be to treat him for a total of at least 6 weeks with intravenous antibiotics and then, if possible, put the patient on a low dose of an oral antibiotic to prevent any flare-up of an infection. COMORBIDITIES: The patient has recently had a stroke and in the past, he has had surgeries. He has had surgery on his ankle and cervical spine which may have become infected while the patient was bacteremic. cc: Mansoor Chamberlain MD
[2019-01-20] MEDS ORDERED: POTASSIUM PHOSPHATE 30 MMOL in NS 250 ML IV ONE (21:00)
[2019-01-21 04:41] LABS: ALLEN TEST YES; BE 6.7 mmoll (-3.0-3.0); BLOOD TYPE ARTERIAL; HCO3-(ACT) 29.9 mmoll (20.0-26.0); METHB 1.2 % (0.0-1.5); PCO2(98.6) 30 mmHg (35-45); PO2(98.6) 53 mmHg (60-100); SAMPLE BLOOD; SAO2 92.3 % (95.0-100.0); THB 14.3 g/dL (11.5-17.4)
[2019-01-21 04:43] LABS: pH(98.6) 7.58 (7.35-7.45)
[2019-01-21 04:44] LABS: MODALITY VENTIMASK; O2HB 89.9 % (95.0-99.0)
--- NOTE | 2019-01-21 05:22 | PROGRESS NOTE ---
DATE: 01/20/2019 SUBJECTIVE: The patient is somewhat lethargic this morning. He is too sleepy to try and eat. His is present at the bedside. OBJECTIVE: Vital Signs: Temperature 97.9 degrees, blood pressure 121/70, heart rate 85, respirations 32, O2 saturation 96% on 6 L nasal cannula. Intake 2.9 L, output 1 L. General: This is a chronically ill-appearing, elderly male, lying in bed in no acute distress. Heart: S1, S2 normal. Regular rate and rhythm. Lungs: Coarse breath sounds bilaterally. No wheezing. Abdomen: Positive bowel sounds. Soft, nontender, nondistended. Extremities: No edema, no cyanosis. Neurologic: The patient is lethargic. He does talk, but does not follow commands. LABS: White blood cell count 17, hemoglobin 14, hematocrit 44, platelets 174,000. Sodium 149, potassium 3.3, chloride 106, CO2 28, BUN 30, creatinine 1.1, glucose 145, phosphorus 2.5. ASSESSMENT AND PLAN: 1. 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 Continue on aspirin. Due to the patient's rhabdomyolysis, we have not initiated statin therapy. We will continue with physical therapy and occupational therapy as tolerated. The patient will likely require inpatient rehab placement. 2. Acute rhabdomyolysis, slowly improving. Continue to monitor the patient closely while on intravenous fluid. 3. Hypernatremia. The patient is on D5W. We will continue to monitor the sodium closely. 4. Pneumonia. Continue on antibiotic therapy as directed by Dr. Chamberlain. 5. Bacteremia, secondary to Staphylococcus hominis. Continue with the current antibiotic regimen as directed by Dr. Chamberlain. 6. Transaminitis, slowly improving. We will check a hepatitis profile. 7. Acute kidney injury, resolved. 8. Hypokalemia. Will replace the patient's potassium. 9. Hypophosphatemia. Will replace the patient's phosphorus. 10. Multiple pressure ulcerations. Continue with wound care as directed by the wound care nurse. 11. Gastrointestinal prophylaxis. Will start the patient on omeprazole. 12. Deep vein thrombosis prophylaxis. Will start the patient on Lovenox. cc: Ciarra Henry MD
[2019-01-21 05:23] LABS: HEMATOCRIT 45.7 % (42.0-52.0); MCH 30.1 PG (27-31); MCHC 32.8 g/dL (33-37); MCV 91.6 FL (81-99); MPV 12.7 FL (7.4-10.4); RBC 4.99 XMIL (4.7-6.1); RDW 13.7 % (11.5-14.5); WBC 22.2 X1000 (4.8-10.8)
[2019-01-21 05:34] LABS: AGAP 12; ALBUMIN 2.9 g/dL (3.5-5.0); BUN 23 mg/dL (8-22); CALCIUM 7.6 mg/dL (8.8-10.2); CHLORIDE 107 mmol/L (98-107); COSMO 294; CREATININE 0.9 mg/dL (0.7-1.2); ESTIMATED GFR > 60; GLUCOSE 123 mg/dL (70-104); POTASSIUM 3.3 mmol/L (3.5-5.1); SODIUM 145 mmol/L (136-145); TCO2 26 mmol/L (25-35)
[2019-01-21 05:42] LABS: ALB/GLOB RATIO 0.7; ALBUMIN 2.6 g/dL (3.5-5.0); DIRECT BILIRUBIN 0.1 mg/dL (0.00-0.20); TOTAL BILIRUBIN 0.59 mg/dL (0.20-1.00); TOTAL PROTEIN 6.5 g/dL (6.3-8.3)
[2019-01-21] MEDS: D5W 1,000 ML IV SCH (06:16)
[2019-01-21] MEDS: PROTONIX IV SCH (06:20)
--- NOTE | 2019-01-21 06:22 | Diag Imaging Result Doc PS360 ---
EXAM: CHEST-PORTABLE HISTORY: dyspnea TECHNIQUE: Chest single view COMPARISON: 01/20/2019 FINDINGS: The lungs are well expanded. The heart is not enlarged. The vessels are not distended. Questionable small basilar infiltrates. No effusion identified. IMPRESSION: Stable exam Electronically signed by Sukhjinder Valdes 01/21/2019 6:20 AM
[2019-01-21] MEDS ORDERED: DIPRIVAN 1% ONE ×2 (07:32→07:44)
[2019-01-21] MEDS ORDERED: DIPRIVAN 1% 1,000 MG/100 ML BOTTLE ONE (07:48)
[2019-01-21] MEDS: MORPHINE IV PRN (07:52)
[2019-01-21] MEDS ORDERED: MORPHINE IV ONE (08:00)
[2019-01-21] MEDS ORDERED: ATIVAN IV ONE (08:00)
[2019-01-21] MEDS: DIPRIVAN 1% 1,000 MG/100 ML BOTTLE IV SCH ×7 (08:10→22:28)
--- NOTE | 2019-01-21 08:20 | Diag Imaging Result Doc PS360 ---
CHEST-PORTABLE - 01/21/2019 7:59 AM INDICATION: ET tube NG tube placement COMPARISON: 5:25 AM FINDINGS: There is an endotracheal tube in good position at T4. There is a nasogastric tube in good position fully within the stomach. There is improvement in the questionable infiltrate or atelectasis at the right lung base. No new or dense infiltrates. Heart size is normal. IMPRESSION: Good support tube placement. Electronically signed by Cameron Sainz 01/21/2019 8:18 AM
[2019-01-21] MEDS: VANCOMYCIN 1,650 MG in NS 250 ML IV SCH (08:30)
[2019-01-21 08:47] LABS: INR 1.25; PROTIME 15.9 Seconds (11.0-16.0)
[2019-01-21] MEDS ORDERED: ASPIRIN PR SCH (09:00)
[2019-01-21] MEDS: OFIRMEV 1000 MG/ISOTONIC SOLN 1,000 MG/100 ML BOTTLE IV PRN (09:00)
[2019-01-21] MEDS: MAXIPIME 2 GM in NS 100 ML IV SCH ×2 (09:00→15:43)
[2019-01-21] MEDS: LOVENOX SUBQ SCH (09:01)
[2019-01-21] MEDS ORDERED: NS 250 ML ONE (09:05)
[2019-01-21 09:29] LABS: CK-MB 1.45 ng/mL (0.0-5.0)
--- NOTE | 2019-01-21 09:46 | INFECTIOUS DISEASE PROGRESS NO ---
DATE: 01/21/2019 HISTORY OF PRESENT ILLNESS: The patient appears to have a bibasilar pneumonia. He also has a Staph bacteremia. MEDICATIONS: The patient was yesterday started on vancomycin and he had Rocephin discontinued yesterday. OBJECTIVE: Vital Signs: Temperature is 101 degrees, pulse 116 respirations 45, blood pressure 137/80. General: This is an ill-appearing middle-aged male. He does seem to be in some acute distress. He has just been intubated. He has some labored and frequent respirations. Head, eyes, ears, nose, and throat: As mentioned above, the patient is intubated. He has an orotracheal tube in place. Neck: No stiffness. Lungs: Clear to auscultation. Cardiovascular: Heart rate is regular. Abdomen: Soft and nontender. Extremities: The patient's right arm remains swollen. The Doppler study did not show any clots, however. LAB AND RADIOLOGY: CBC-WBC 22.2, hgb 15, platelets 155K. Creatinine-0.9. GFR- >60. AST-92. Chest x-ray-RLL infiltrate clearing. ASSESSMENT AND PLAN: The patient has pneumonia and bacteremia. I plan on continuing vancomycin and I have started cefepime. The patient's right arm is swollen. However, there is no clot in it. I plan to continue vancomycin and I have started the patient on cefepime pending culture results. Repeat blood cultures have been drawn and there is an order to get a sputum for culture. The patient will require 6 weeks of IV antibiotic because he has metal in his ankles and probably in his spine. The metal could have become infected while the patient was bacteremic. I am going to order repeat blood cultures also. COMORBIDITIES: He has aortic insufficiency. He has had ankle surgery and cervical spine fusion. The patient has just been intubated. My plan is to continue vancomycin. I have started the patient on cefepime. cc: Mansoor Chamberlain MD MTDJohanne
[2019-01-21 09:56] LABS: ALLEN TEST YES; BE 4.4 mmoll (-3.0-3.0); BLOOD TYPE ARTERIAL; HCO3-(ACT) 28.3 mmoll (20.0-26.0); METHB 1.1 % (0.0-1.5); O2(CT) 17.3 mL/dL (15.0-23.0); O2HB 95.9 % (95.0-99.0); PCO2(98.6) 39 mmHg (35-45); PO2(98.6) 85 mmHg (60-100); SAMPLE BLOOD; SAO2 98.3 % (95.0-100.0); SRATE 12 BPM; THB 12.8 g/dL (11.5-17.4); TVOL 400 mL; pH(98.6) 7.47 (7.35-7.45)
[2019-01-21 09:58] LABS: MODALITY VENTILATOR
[2019-01-21] MEDS: ASPIRIN PO SCH (10:03)
[2019-01-21] MEDS ORDERED: NS 1,000 ML ONE (10:30)
[2019-01-21] MEDS ORDERED: NS 1,000 ML IV ONE (10:32)
--- NOTE | 2019-01-21 10:52 | PROGRESS NOTE ---
DATE: 01/21/2019 SUBJECTIVE: Mr. Jose had some deterioration in pulmonary status overnight. He had been awake, alert, and attentive a few days ago. He was more sluggish yesterday. He required intubation in the night. This morning, he is intubated, ventilated, sedated with propofol. OBJECTIVE: On exam, there is slight pupil reaction to bright light bilaterally. There is a little bit of lateral eye movement with passive head turning. Corneal reflexes are minimal, but present bilaterally. Neck is supple. He is making some respiratory effort. IMPRESSION: Deterioration overnight. I am not sure there has been a new neurologic event. I would not expect brain edema sufficient to cause herniation to be present now based on the previous imaging findings and prior clinical course. He might have had a new neurologic event, hemorrhage, new infarct or extension of right hemisphere infarction, but I don't find definite clinical evidence of any of those possibilities. Noncontrast CT is ordered and will be done when arrangements can be made. Further plans will depend on that report. I do not have any other suggestion from Neurology standpoint right now. cc: William Otoole III, MD MTDD
--- NOTE | 2019-01-21 11:31 | Diag Imaging Result Doc PS360 ---
CT HEAD W/O CONTRAST - 01/21/2019 INDICATION: Decline in neuro status COMPARISON: 01/17/2019 FINDINGS: There is a large recent right middle cerebral artery territory stroke that is evolving as expected. No mass effect or midline shift. No intracranial hemorrhage. The skull is intact. The sinuses are grossly clear. IMPRESSION: Large right middle cerebral artery territory stroke that is evolving as expected. This exam was performed using automated exposure control, adjustment of mA or kV according to patient size, and/or use of iterative reconstruction technique Electronically signed by Cameron Sainz 01/21/2019 11:28 AM
[2019-01-21] MEDS ORDERED: D5 1/2 NS 1,000 ML IV SCH (12:00)
[2019-01-21] MEDS: CLINIMIX E 4.25%-5% SOLUTION 1,000 ML IV SCH (12:00)
--- NOTE | 2019-01-21 14:42 | PULMONOLOGY CONSULTATION ---
DATE: 01/21/2019 REQUESTING PHYSICIAN: Dr. Henry. REASON FOR CONSULTATION: Respiratory failure. HISTORY OF PRESENT ILLNESS: Mr. Jose is a 58-year-old white male with a prior history for tobacco use who presented to the hospital 4 days ago by EMS after family had not seen patient. A welfare check was performed and the patient had a right facial droop and did not follow commands. CT scan of the brain was consistent with a right middle cerebral artery infarction which appeared subacute. The patient did have some cognitive improvement. Yesterday, he was attentive and would follow simple commands with his right side. The patient had a change in mental status through the evening along with increased work of breathing. The patient was intubated earlier this morning due to progressive respiratory distress and changing mental status. PAST MEDICAL HISTORY: 1. Recent stroke as per above. 2. Hypertension. 3. History of bilateral ankle surgery and cervical spine fusion. SOCIAL HISTORY: The patient was a former smoker by report. Not fully quantitated. Vaping at the time of admission. History of alcohol use and drug use in the past. FAMILY HISTORY: Noncontributory to current presentation. REVIEW OF SYSTEMS: Cannot be obtained. PHYSICAL EXAMINATION: General: Reveals a well-developed male who appears older than his stated age of 58. Maximum temperature in the last 24 hours 101.6 degrees. BP 104/77, heart rate 133, respiratory rate 20, oxygen saturation 93%. HEENT: Pupils are equal with slight reaction to light. Oropharynx appears clear. Neck: Supple. Chest: Reveals scattered rhonchi bilaterally. Cardiac: Increased rate. Regular rhythm. Abdomen: Soft. Extremities: Reveal some edema in the right upper extremity. LABORATORIES: White blood count 22.2 thousand, hemoglobin 15.0, platelet count 155,000. Chest x- ray reveals small bibasilar infiltrates prior to intubation with decreasing infiltrates after intubation. Arterial blood gas on mechanical ventilation following intubation, pH 7.47, pCO2 of 39, pO2 of 85. 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 The patient has: 1. Altered mental status. 2. Acute hypoxemic respiratory failure. 3. Aspiration pneumonia. 4. Relative hypotension given current clinical status. 5. History of tobacco use/electronic cigarette use. RECOMMENDATIONS: 1. Agree with intubation. 2. Initiate fluid resuscitation given recent stroke. Is important to avoid hypotension. 3. Collect sputum for C and S as you are doing. 4. Routine bronchodilators. 5. Urgent repeat CT scan of the brain. 6. Additional recommendations pending hospital course. cc: Stephen Rodríguez MD
[2019-01-21] MEDS: DUONEB (A & A) INH SCH ×3 (17:00→23:22)
--- NOTE | 2019-01-21 18:36 | Extremity Venous Study ---
PROCEDURE NAME: Venous U/S Right Arm - 01/20/2019 REFERRING PHYSICIAN: Mansoor Chamberlain MD READING PHYSICIAN: Naldo Fregoso MD SENIOR SAFETY MANAGEMENT CONSULTANT: Jennifer. INDICATION: Right arm swelling. FINDINGS: The deep and superficial veins of the right upper extremity were imaged throughout their course. They are compressible, patent and without thrombus. INTERPRETATION: No deep venous thrombosis or superficial venous thrombosis of the right upper extremity. cc: MD Mansoor Sung MD
--- NOTE | 2019-01-21 20:11 | PROGRESS NOTE ---
DATE: 01/21/2019 SUBJECTIVE: The patient was noted to have increased work of breathing this morning that was tachypneic as well as hypoxic. As a result, the patient was intubated and placed on the ventilator. OBJECTIVE: Vital Signs: Temperature 100.1, blood pressure 120/73, heart rate 79, respirations 16, O2 saturation is 96% on mechanical ventilator. Intake 2.1 L, output 1.4 L. General: This is a chronically ill-appearing, elderly male, currently sedated on the ventilator. Head: Normocephalic, atraumatic. Heart: S1, S2 normal. Regular rate and rhythm. Lungs: Coarse breath sounds. Abdomen: Positive bowel sounds. Soft, nontender, nondistended. Extremities: No edema. No cyanosis. Neurologic: The patient is currently sedated. LABORATORY AND DIAGNOSTIC DATA: White blood cell count 22, hemoglobin 15, hematocrit 45, platelets 155,000. Sodium 145, potassium 3.3, chloride 107, CO2 of 26, BUN 23, creatinine 0.9, glucose 123. CK 4173. Vitamin D 10. Head CT reveals a large right middle cerebral artery territory stroke that is evolving. Chest x-ray shows questionable small basilar infiltrates. ASSESSMENT AND PLAN: 1. Acute hypoxemic respiratory failure. Continue with ventilatory support. Management as per the senior reservoir engineer. 2. Pneumonia. Continue with antibiotic therapy as directed by Dr. Chamberlain. 3. Large evolving right middle cerebral artery territory cerebrovascular accident. Continue with supportive care and aspirin. 4. Rhabdomyolysis. Slowly improving. 5. Bacteremia secondary to Staphylococcus hominis. Continue on the current antibiotic regimen. 6. Multiple pressure wounds. Continue with wound care. 7. Transaminitis. Slowly improving. 8. Severe protein-calorie malnutrition. The patient is now on Clinimix. 9. Gastrointestinal prophylaxis. Continue on IV Protonix. 10. Deep vein thrombosis prophylaxis. Continue on Lovenox. cc: Ciarra Henry MD
[2019-01-22] MEDS: MAXIPIME 2 GM in NS 100 ML IV SCH ×4 (00:05→23:35)
[2019-01-22] MEDS: CLINIMIX E 4.25%-5% SOLUTION 1,000 ML IV SCH ×3 (00:24→23:01)
[2019-01-22] MEDS: VANCOMYCIN 1,650 MG in NS 250 ML IV SCH ×2 (00:44→18:00)
[2019-01-22] MEDS: DIPRIVAN 1% 1,000 MG/100 ML BOTTLE IV SCH ×8 (02:08→23:01)
[2019-01-22] MEDS: DUONEB (A & A) INH SCH ×6 (03:27→22:50)
[2019-01-22 04:25] LABS: ALLEN TEST YES; BE 3.7 mmoll (-3.0-3.0); BLOOD TYPE ARTERIAL; HCO3-(ACT) 27.7 mmoll (20.0-26.0); METHB 0.9 % (0.0-1.5); MODALITY VENTILATOR; O2(CT) 20.6 mL/dL (15.0-23.0); O2HB 93.9 % (95.0-99.0); PCO2(98.6) 34 mmHg (35-45); PO2(98.6) 69 mmHg (60-100); SAMPLE BLOOD; SRATE 12 BPM; THB 15.6 g/dL (11.5-17.4); TVOL 600 mL
[2019-01-22 06:23] LABS: BASO# 0.01 X1000 (0.0-0.2); BASO% 0.1 % (0.0-0.8); EOS% 0.6 % (0.0-10.0); HEMATOCRIT 36.2 % (42.0-52.0); HEMOGLOBIN 11.6 g/dL (14.0-18.0); IMM GRAN# 0.08 X1000 (0.0-0.04); IMM GRAN% 0.5 % (0.0-0.5); LYMPH# 1.82 X1000 (1.2-3.4); LYMPH% 11.8 % (20.5-51.1); MCH 29.4 PG (27-31); MCV 91.9 FL (81-99); MONO% 7.8 % (1.7-9.3); MPV 12.9 FL (7.4-10.4); NEUT# 12.18 X1000 (1.4-6.5); NEUT% 79.2 % (42.2-75.2); PLT 110 X1000 (130-400); RBC 3.94 XMIL (4.7-6.1); RDW 13.3 % (11.5-14.5); WBC 15.39 X1000 (4.8-10.8)
[2019-01-22] MEDS: PROTONIX IV SCH (06:23)
[2019-01-22 06:51] LABS: AGAP 11; ALB/GLOB RATIO 0.6; ALBUMIN 2.2 g/dL (3.5-5.0); ALKALINE PHOSPHATASE 43 U/L (32-122); BUN 21 mg/dL (8-22); CALCIUM 7.8 mg/dL (8.8-10.2); CHLORIDE 110 mmol/L (98-107); COSMO 292; CREATININE 0.8 mg/dL (0.7-1.2); ESTIMATED GFR > 60; GLUCOSE 108 mg/dL (70-104); GOT 63 U/L (10-34); GPT 51 U/L (10-44); POTASSIUM 3.4 mmol/L (3.5-5.1); SODIUM 145 mmol/L (136-145); TCO2 24 mmol/L (25-35); TOTAL BILIRUBIN 0.41 mg/dL (0.20-1.00); TOTAL PROTEIN 5.7 g/dL (6.3-8.3)
[2019-01-22] MEDS ORDERED: POTASSIUM CHLORIDE 40 MEQ/SWI 40 MEQ/100 ML IVPB IV ONE (07:22)
--- NOTE | 2019-01-22 07:49 | Diag Imaging Result Doc PS360 ---
EXAM: CHEST-PORTABLE INDICATION: respiratory failure TECHNIQUE: One view COMPARISON: 01/21/2019 FINDINGS: Support tubes and lines are in stable positions. There is slight increased opacity at the lung bases suggesting mild atelectasis and possibly small effusions. No other new consolidation is identified. Cardiac silhouette is stable. IMPRESSION: Slight increased opacity at the lung bases as described. Electronically signed by Shakeel Chris 01/22/2019 7:46 AM
[2019-01-22] MEDS: LOVENOX SUBQ SCH (08:06)
[2019-01-22] MEDS: ASPIRIN PO SCH (08:07)
[2019-01-22] MEDS: OFIRMEV 1000 MG/ISOTONIC SOLN 1,000 MG/100 ML BOTTLE IV PRN ×3 (08:10→21:02)
[2019-01-22 09:37] LABS: HEPATITIS PROFILE ACUTE SEE COMMENTS
--- NOTE | 2019-01-22 15:06 | PULMONOLOGY PROGRESS NOTE ---
DATE: 01/22/2019 SUBJECTIVE: The patient is sedated on mechanical ventilation. A sedation vacation is being initiated. OBJECTIVE: Vital Signs: Maximum temperature in the last 24 hours 101.2 degrees, BP 126/78, heart rate 73, respiratory rate 22, oxygen saturation 96%. HEENT: Pupils are equal and reactive. Oropharynx appears clear. Neck: Neck is supple. Chest: Reveals diminished breath sounds both lung bases. Cardiac exam: S1, S2. Abdomen: Soft with positive bowel sounds. Extremities: Reveal trace edema. LABORATORIES/X-RAYS: Chest x-ray reveals slight increased density in both lung bases, possibly representing effusions. Arterial blood gas reveals pH 7.50, pCO2 of 34, PO2 of 69. White blood count 15.4, hemoglobin 11.6, platelet count 110,000. IMPRESSION: A 58-year-old with: 1. Acute hypoxemic respiratory failure. 2. Respiration pneumonia. 3. Altered mental status. 4. Acute stroke. 5. History of tobacco use and electronic cigarette use. DISCUSSION: A 58-year-old with problems outlined above. He is not a candidate for weaning at this juncture. I will initiate tube feeds and attempt gentle diuresis. Sputum cultures are pending. PLAN: 1. Initiate tube feeds. 2. Continue Clinimix pending toleration of tube feeds. 3. Gentle diuresis. 4. Continue antibiotics. 5. Continue mechanical ventilation and wean as tolerated. CRITICAL CARE TIME: 35 minutes cc: Stephen Rodríguez MD MTDD
[2019-01-22] MEDS: LASIX IV SCH ×2 (15:20→23:01)
--- NOTE | 2019-01-22 18:37 | PROGRESS NOTE ---
DATE: 01/22/2019 SUBJECTIVE: The patient is currently sedated on the ventilator. OBJECTIVE: Vital Signs: Temperature 98.6 degrees, blood pressure 129/81, heart rate 95, respirations 22, O2 saturations 96% on the mechanical ventilator, intake 5.3 L, output 1.2 L. General: This is a chronically ill-appearing elderly male currently sedated on the ventilator. Heart: S1, S2 normal. Tachycardic. Lungs: Coarse breath sounds bilaterally. Abdomen: Positive bowel sounds. Soft, nontender, nondistended. Extremities: No edema, no cyanosis. Neuro: The patient is currently sedated on the ventilator. LABS: White blood cell count 15, hemoglobin 11, hematocrit 36, platelets 110,000. Sodium 145, potassium 3.4, chloride 110, CO2 24, BUN 21, creatinine 0.8, glucose 108, AST 63, ALT 51, CK 2522. Chest x-ray shows increased opacity at the lung bases. ASSESSMENT AND PLAN: 1. Acute hypoxemic respiratory failure. Continue with ventilatory support as directed by the car clerk pullman. 2. Pneumonia. Continue with antibiotic therapy. 3. Large evolving right middle cerebral artery territory cerebrovascular accident. Continue with supportive care. 4. Rhabdomyolysis. Slowly improving. 5. Bacteremia secondary to Staphylococcus hominis. Continue on vancomycin. 6. Multiple pressure wounds. Continue with wound care. 7. Transaminitis. Improved. 8. Thrombocytopenia. Will discontinue the Lovenox. 9. Gastrointestinal prophylaxis. Continue on Protonix. 10. Disposition. The patient is critically ill. cc: Ciarra Henry MD
[2019-01-23] MEDS ORDERED: TORADOL IV ONE (02:28)
[2019-01-23] MEDS: DIPRIVAN 1% 1,000 MG/100 ML BOTTLE IV SCH ×9 (02:45→23:52)
[2019-01-23] MEDS: DUONEB (A & A) INH SCH ×6 (02:58→23:00)
[2019-01-23] MEDS: MORPHINE IV PRN ×4 (03:10→19:51)
[2019-01-23] MEDS: OFIRMEV 1000 MG/ISOTONIC SOLN 1,000 MG/100 ML BOTTLE IV PRN ×3 (03:11→14:15)
[2019-01-23 03:52] LABS: ALLEN TEST YES; BE 1.8 mmoll (-3.0-3.0); BLOOD TYPE ARTERIAL; HCO3-(ACT) 26.1 mmoll (20.0-26.0); METHB 0.8 % (0.0-1.5); O2(CT) 19.1 mL/dL (15.0-23.0); O2HB 90.7 % (95.0-99.0); PCO2(98.6) 30 mmHg (35-45); PO2(98.6) 57 mmHg (60-100); SAMPLE BLOOD; SRATE 12 BPM; TVOL 600 mL; pH(98.6) 7.51 (7.35-7.45)
[2019-01-23 03:53] LABS: MODALITY VENTILATOR
[2019-01-23] MEDS: PROTONIX IV SCH (06:34)
[2019-01-23] MEDS: SODIUM CHLORIDE 0.9% INJ SCH (06:34)
[2019-01-23] MEDS: LASIX IV SCH (06:35)
[2019-01-23 06:49] LABS: PHOSPHORUS 3.5 mg/dL (2.7-4.5)
[2019-01-23 06:56] LABS: BASO# 0.02 X1000 (0.0-0.2); BASO% 0.1 % (0.0-0.8); EOS# 0.19 X1000 (0.0-0.7); EOS% 1.3 % (0.0-10.0); HEMATOCRIT 38.2 % (42.0-52.0); HEMOGLOBIN 12.3 g/dL (14.0-18.0); IMM GRAN# 0.18 X1000 (0.0-0.04); IMM GRAN% 1.2 % (0.0-0.5); LYMPH# 1.19 X1000 (1.2-3.4); LYMPH% 8.3 % (20.5-51.1); MCH 29.3 PG (27-31); MCHC 32.2 g/dL (33-37); MONO# 1.27 X1000 (0.11-0.59); MONO% 8.8 % (1.7-9.3); MPV 13.1 FL (7.4-10.4); NEUT# 11.56 X1000 (1.4-6.5); NEUT% 80.3 % (42.2-75.2); PLT 112 X1000 (130-400); RDW 13.2 % (11.5-14.5); WBC 14.41 X1000 (4.8-10.8)
[2019-01-23 07:06] LABS: AGAP 14; ALB/GLOB RATIO 0.5; ALKALINE PHOSPHATASE 64 U/L (32-122); BUN 21 mg/dL (8-22); CALCIUM 7.3 mg/dL (8.8-10.2); CHLORIDE 107 mmol/L (98-107); COSMO 285; CREATININE 0.7 mg/dL (0.7-1.2); ESTIMATED GFR > 60; GLUCOSE 142 mg/dL (70-104); GOT 51 U/L (10-34); GPT 52 U/L (10-44); POTASSIUM 3.8 mmol/L (3.5-5.1); SODIUM 140 mmol/L (136-145); TCO2 19 mmol/L (25-35); TOTAL BILIRUBIN 0.39 mg/dL (0.20-1.00); TOTAL PROTEIN 6.1 g/dL (6.3-8.3)
[2019-01-23 07:16] LABS: BANDS 2 % (0-1); EOS 2 % (1-10); LYMPHS 6 % (21-51); MONO 2 % (1-9); SEGS 88 % (42-75)
[2019-01-23] MEDS: MAXIPIME 2 GM in NS 100 ML IV SCH ×2 (07:16→15:37)
[2019-01-23 07:47] LABS: URINE SOURCE CATH
--- NOTE | 2019-01-23 07:50 | Diag Imaging Result Doc PS360 ---
EXAM: CHEST-PORTABLE INDICATION: respiratory failure TECHNIQUE: One view COMPARISON: 01/22/2019 FINDINGS: Support tubes and lines are in stable positions. Opacities at the lung bases appear to have slightly improved, at least on the right suggesting decreasing effusions and improving adjacent atelectasis and/or infiltrate. No new consolidation is identified. Cardiac silhouette is stable. IMPRESSION: Interval slight improvement. Electronically signed by Shakeel Chris 01/23/2019 7:48 AM
[2019-01-23] MEDS ORDERED: LOPRESSOR IV ONE (07:55)
[2019-01-23 08:05] LABS: BILIRUBIN URINE NEGATIVE (NEGATIVE); BLOOD URINE NEGATIVE (NEGATIVE); COLOR STRAW; GLUCOSE URINE NEGATIVE (NEGATIVE); KETONE URINE NEGATIVE (NEGATIVE); LEUKOCYTES URINE NEGATIVE (NEGATIVE); NITRITE URINE NEGATIVE (NEGATIVE); PROTEIN URINE NEGATIVE (NEGATIVE); TURBIDITY URINE CLEAR (CLEAR); UROBILINOGEN URINE NORMAL (NORMAL)
[2019-01-23 08:07] LABS: UR EPITHELIAL CELLS <10 /HPF (<10); URINE BACTERIA NEGATIVE /HPF; URINE RBC <10 /HPF (<10); URINE WBC <10 /HPF (<10)
[2019-01-23] MEDS: ASPIRIN PO SCH (08:17)
[2019-01-23] MEDS ORDERED: LASIX IV ONE (09:44)
[2019-01-23] MEDS: CLINIMIX E 4.25%-5% SOLUTION 1,000 ML IV SCH (10:00)
[2019-01-23] MEDS ORDERED: CARDIZEM IV ONE (11:27)
--- NOTE | 2019-01-23 11:32 | Diag Imaging Result Doc PS360 ---
EXAM: CT ANGIOGRM PULMONARY ARTERIES INDICATION: hypoxia TECHNIQUE: This exam was performed using automated exposure control, adjustment of mA or kV according to patient size, and/or use of iterative reconstruction technique. Thin section axial images and 3-D MIPS were obtained. COMPARISON: None. FINDINGS: There is no evidence of pulmonary embolism. There is no evidence of aortic dissection or aneurysm. There is no cardiomegaly. There are a few calcified mediastinal and hilar lymph nodes indicating prior granulomatous disease. There is no significant mediastinal or hilar lymphadenopathy, otherwise. There is a small pericardial effusion. There is a calcified granuloma in the right middle lobe. There is dense consolidation seen at both the right and left lung bases in the lower lobes. This likely represents atelectasis, probably with superimposed pneumonia. Consider aspiration pneumonia. There is no pleural fluid collection and there is no pneumothorax. Limited views of the upper abdomen shows NG tube coiled in the stomach. The upper abdomen is essentially unremarkable, otherwise. IMPRESSION: 1.Dense consolidation at both lung bases in the lower lobes consistent with atelectasis and probably superimposed pneumonia. Please correlate clinically. 2.No evidence of pulmonary embolism. 3.There is small pericardial effusion. Electronically signed by Shakeel Chris 01/23/2019 11:30 AM
[2019-01-23] MEDS ORDERED: MORPHINE IV ONE (11:55)
[2019-01-23] MEDS: VANCOMYCIN 1,650 MG in NS 250 ML IV SCH (13:25)
--- NOTE | 2019-01-23 14:33 | INFECTIOUS DISEASE PROGRESS NO ---
DATE: 01/23/2019 PRESENT ILLNESS: The patient has a bibasilar pneumonia and a staph bacteremia. He continues to have fever. MEDICATIONS: This is the third day of treatment with vancomycin and the second day of treatment with cefepime. PHYSICAL EXAMINATION: Vital Signs: Temperature earlier was 102, now it is 100.4, pulse 141, respirations 18, blood pressure 109/89. General: This is an ill-appearing middle-aged male. He is intubated and is obtunded. Head, eyes, ears, nose, and throat: There is no drainage from the nose or ears. He did not respond to verbal stimuli. Orotracheal tube and a nasogastric tube are in place. Neck: No stiffness. Lungs: Clear to auscultation. Cardiovascular: Heart rate is regular. Abdomen: Soft. Neurologic: The patient is obtunded. He did not respond to verbal stimuli. There is no tremor. LAB AND X-RAY: The patient's chest x-ray shows improvement in the bibasilar opacity. Sputum grew normal keira. Repeat blood cultures drawn on January 21 are negative. The patient's stool for Clostridium difficile toxin and antigen are negative. Hepatitis panel is nonreactive. The urinalysis shows no white cells or bacteria. ALT is 52. Blood gases have a pH of 7.51, a PO2 of 57 and pCO2 of 30. Creatinine is 0.7. GFR is greater than 60. CBC shows a white count of 14,410, hemoglobin 12.3 and platelet count 112,000. ASSESSMENT AND PLAN: The patient seems to be getting better except for the fact he does have fever. It was 102 and now it is down to 100.4. His white count is coming down. His chest x-ray looks better. Repeat blood cultures are negative. The patient does have pneumonia and bacteremia. It seems to be getting better and I am going to continue with the current antibiotics, even though the patient is having fever. The patient will require 6 weeks of treatment for the Staph bacteremia because he has metal in his ankles and probably in his spine, which could have become infected hematogenously while the patient was bacteremic. COMORBIDITIES: Aortic insufficiency, injury to his ankle and cervical spine which caused to have surgery and putting in metal. cc: Mansoor Chamberlain MD
--- NOTE | 2019-01-23 14:48 | PROGRESS NOTE ---
DATE: 01/23/2019 SUBJECTIVE: The patient is currently on the ventilator. However, he was noted to be tachycardic with a heart rate in the 130s overnight. Also, his FiO2 was subsequently increased, because his oxygen saturations dropped. OBJECTIVE: Vital Signs: T-max 102.1 degrees, blood pressure 116/84, heart rate 127, respirations 17, O2 saturations 97% on the mechanical ventilator. FiO2 of 40%. Intake 5 L; output 3.6 L. General: This is an overweight male currently sedated on the ventilator. Heart: S1, S2 normal. Tachycardic. Lungs: Coarse breath sounds bilaterally. Abdomen: Positive bowel sounds. Soft, nontender, nondistended. Extremities: No edema. No cyanosis. Neurologic: The patient is currently sedated. LABS: White blood cell count 14, hemoglobin 12, hematocrit 38, platelets 112,000. Sodium 140, potassium 3.8, chloride 107, CO2 of 19, BUN 21, creatinine 0.7, glucose 142. AST 51, ALT 52, alkaline phosphatase 64. CK 1036. Albumin 2. Total protein 6.1. Pulmonary arteriogram shows dense consolidation at both lung bases consistent with pneumonia. No evidence of PE. ASSESSMENT AND PLAN: 1. Acute hypoxemic respiratory failure. Continue with ventilatory support as directed by the collar separator. 2. Sepsis. The patient is febrile with a high white count. Will repeat the blood cultures. We will also order urinalysis. Continue with broad-spectrum antibiotics as directed by Dr. Chamberlain. 3. Bilateral lobe pneumonia. Continue with broad-spectrum antibiotics and ventilatory support. 4. Bacteremia secondary to Staphylococcus hominis. Continue with vancomycin. 5. Tachycardia. The patient has received IV metoprolol and IV Cardizem. We will continue to monitor the heart rate closely. 6. Large evolving right middle cerebral artery territory cerebrovascular accident. Continue with supportive care. 7. Multiple pressure wounds. Continue with wound care. 8. Thrombocytopenia. Unchanged. Will continue to monitor off of heparin. 9. Transaminitis. Unchanged. 10. Rhabdomyolysis. Slowly improving. 11. Severe protein calorie malnutrition. The patient is on tube feeds. 12. Gastrointestinal prophylaxis. Continue on Protonix. 13. Disposition. The patient is critically ill with a high risk of mortality. cc: MD CLAIRE Corcoran
[2019-01-23] MEDS: LOVENOX SUBQ SCH (17:10)
--- NOTE | 2019-01-23 17:16 | PULMONOLOGY PROGRESS NOTE ---
DATE: 01/23/2019 SUBJECTIVE: The patient is on mechanical ventilation. He does become agitated when sedation is decreased. He is having periods of fevers and tachycardia. OBJECTIVE: Vital Signs: Maximum temperature in the last 24 hours 102.1 degrees. Blood pressure 117/89, heart rate 136, respiratory rate 18, oxygen saturation 96%. HEENT: Pupils are equal and reactive but sluggish. Oropharynx appears dry. Neck: Supple. Chest: Reveals occasional rhonchi bilaterally. Cardiac exam: S1, S2. Abdomen: Soft, with diminished bowel sounds. Extremities: Reveal 1+ peripheral edema. LABORATORIES: White blood count 14.4, hemoglobin 12.3, platelet count 112,000. Sodium 140, potassium 3.8, chloride 107, bicarbonate 19, BUN 21, creatinine 0.7. Arterial blood gas, pH 7.51, pCO2 of 30, PO2 of 57 on 35% FiO2. CT pulmonary angiogram reveals bibasilar pneumonia, small pericardial effusion, no evidence of pulmonary embolism. IMPRESSIONS: A 58-year-old with: 1. Aspiration pneumonia. 2. Acute hypoxemic respiratory failure. 3. Altered mental status. 4. Acute stroke. 5. Ongoing electronic cigarette use. PLAN: 1. Continue Clinimix. 2. Tube feeds as tolerated. 3. Continue antibiotics and IV Tylenol for fevers. 4. Continue DVT prophylaxis. 5. Check heparin PF 4 antibody to see if he might have heparin-induced thrombocytopenia, but I suspect that his thrombocytopenia is related to his acute illness. CRITICAL CARE TIME: Time spent in critical care management, 30+ minutes. cc: Stephen Rodríguez MD
[2019-01-24] MEDS: MAXIPIME 2 GM in NS 100 ML IV SCH ×3 (00:57→19:58)
[2019-01-24] MEDS: VANCOMYCIN 1,650 MG in NS 250 ML IV SCH ×2 (01:34→13:04)
[2019-01-24] MEDS: DIPRIVAN 1% 1,000 MG/100 ML BOTTLE IV SCH ×7 (02:34→21:11)
[2019-01-24] MEDS: CLINIMIX E 4.25%-5% SOLUTION 1,000 ML IV SCH ×2 (02:35→19:26)
[2019-01-24] MEDS: MORPHINE IV PRN ×2 (02:37→06:29)
[2019-01-24] MEDS: DUONEB (A & A) INH SCH ×6 (02:49→22:35)
[2019-01-24 04:24] LABS: ALLEN TEST YES; BE 1.7 mmoll (-3.0-3.0); BLOOD TYPE ARTERIAL; HCO3-(ACT) 26.1 mmoll (20.0-26.0); O2(CT) 16.1 mL/dL (15.0-23.0); O2HB 91.6 % (95.0-99.0); PCO2(98.6) 42 mmHg (35-45); PO2(98.6) 61 mmHg (60-100); SAMPLE BLOOD; SAO2 94.3 % (95.0-100.0); SRATE 12 BPM; THB 12.5 g/dL (11.5-17.4); TVOL 600 mL; pH(98.6) 7.41 (7.35-7.45)
[2019-01-24 04:25] LABS: MODALITY VENTILATOR
[2019-01-24] MEDS: PROTONIX IV SCH (06:18)
[2019-01-24] MEDS: SODIUM CHLORIDE 0.9% INJ SCH (06:19)
[2019-01-24] MEDS: OFIRMEV 1000 MG/ISOTONIC SOLN 1,000 MG/100 ML BOTTLE IV PRN ×3 (06:29→19:58)
[2019-01-24 06:38] LABS: PHOSPHORUS 3.3 mg/dL (2.7-4.5)
--- NOTE | 2019-01-24 06:38 | Diag Imaging Result Doc PS360 ---
EXAM: CHEST-PORTABLE HISTORY: respiratory failure TECHNIQUE: Chest single view COMPARISON: 01/23/2019 FINDINGS: No change in the endotracheal tube or nasogastric tube. No cardiomegaly. No pulmonary edema. No consolidation. No pleural effusions. IMPRESSION: Negative exam. Electronically signed by Sukhjinder Valdes 01/24/2019 6:36 AM
[2019-01-24 07:11] LABS: BASO# 0.06 X1000 (0.0-0.2); BASO% 0.3 % (0.0-0.8); EOS% 2.9 % (0.0-10.0); HEMATOCRIT 37.6 % (42.0-52.0); HEMOGLOBIN 12.1 g/dL (14.0-18.0); IMM GRAN% 2.3 % (0.0-0.5); LYMPH# 1.14 X1000 (1.2-3.4); LYMPH% 6.6 % (20.5-51.1); MCH 29.6 PG (27-31); MCHC 32.2 g/dL (33-37); MCV 91.9 FL (81-99); MONO# 1.82 X1000 (0.11-0.59); MONO% 10.5 % (1.7-9.3); MPV 12.9 FL (7.4-10.4); NEUT# 13.36 X1000 (1.4-6.5); NEUT% 77.4 % (42.2-75.2); PLT 132 X1000 (130-400); RBC 4.09 XMIL (4.7-6.1); RDW 13.4 % (11.5-14.5); WBC 17.28 X1000 (4.8-10.8)
[2019-01-24 07:24] LABS: AGAP 10; ALB/GLOB RATIO 0.5; ALBUMIN 2.1 g/dL (3.5-5.0); ALKALINE PHOSPHATASE 72 U/L (32-122); BUN 21 mg/dL (8-22); CALCIUM 8.1 mg/dL (8.8-10.2); CHLORIDE 104 mmol/L (98-107); COSMO 281; CREATININE 0.6 mg/dL (0.7-1.2); ESTIMATED GFR > 60; GLUCOSE 137 mg/dL (70-104); GOT 30 U/L (10-34); GPT 38 U/L (10-44); POTASSIUM 4.7 mmol/L (3.5-5.1); SODIUM 138 mmol/L (136-145); TCO2 24 mmol/L (25-35); TOTAL PROTEIN 6.1 g/dL (6.3-8.3)
[2019-01-24 07:59] LABS: BANDS 6 % (0-1); LARGE PLATELETS 1+; LYMPHS 2 % (21-51); MONO 8 % (1-9); SEGS 84 % (42-75)
--- NOTE | 2019-01-24 08:05 | PROGRESS NOTE ---
DATE: 01/24/2019 SUBJECTIVE: This patient is still on mechanical ventilation and sedated. He is still having some low-grade fever. WBC increased a little bit compared with yesterday. His platelet count also is better, as well as his LFTs. Today, they are completely normal. CK level trending down nicely. He does have bacteremia and he has been treated by infectious disease department due to bibasilar pneumonia. OBJECTIVE: Vital Signs: Temperature 100.8 degrees, pulse 108, respiratory rate 17, blood pressure 118/72, oxygen saturation 94% on mechanical ventilation. HEENT: Head normocephalic. No trauma. PERRLA. Neck: Supple. No JVD. Central trachea. Chest: Coarse breath sounds bilaterally with some crepitus, mostly at the bases, and coarse breath sounds. Abdomen: Soft, nontender, nondistended. No hepatosplenomegaly. Extremities: No edema, no clubbing, no cyanosis. He has some pressure ulcers, especially right upper arm, right hip, and right big toe on the metatarsal area. Neurological Examination: The patient is on mechanical ventilation and sedated. Laboratory: WBCs 17.2, hemoglobin 12.1, hematocrit 37.6, platelets 132,000. Sodium 138, potassium 4.7, chloride 104, bicarbonate 24, BUN 21, creatinine 0.6, glucose 137, calcium 8.1. AST 30, ALT 38, alkaline phosphatase 72, albumin 2.1. ASSESSMENT AND PLAN: 1. 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 Continue with aspirin. Due to this patient's rhabdomyolysis, we have not initiated statin therapy. Liver function tests are better, actually today are normal but I will give a little bit more of time to start this treatment. If the patient gets better, likely, he will require inpatient rehab placement. 2. Acute rhabdomyolysis, slowly improving. Kidney function is good and liver function tests are normal. I will check a new CK level tomorrow. 3. Hypernatremia, resolved. At this moment, he is on Clinimix. I will continue with the same management. He is also getting a feeding tube. 4. Pneumonia. Continue with antibiotics as directed by Dr. Chamberlain. 5. Bacteremia secondary to Staphylococcus hominis. Infectious disease department on board. He has been having low-grade fever and the leukocyte count increased a little bit compared with yesterday. 6. Transaminitis, improved. 7. Acute kidney injury, resolved. 8. Hypokalemia, resolved. 9. Acute hypoxemic respiratory failure. Continue with ventilatory support directed by pattern setter. 10. Sepsis. This patient meets criteria with fever, leukocytosis, and a source of infection. We will continue with broad spectrum antibiotics. Infectious disease department on board. 11. Multiple pressure wounds. Aware. 12. Thrombocytopenia, better compared with yesterday. We will continue to monitor. 13. Severe protein calorie malnutrition. Continue with tube feeds. 14. Gastrointestinal prophylaxis with Protonix. 15. Overall, this patient is still remarkably sick. He has a high risk of mortality. We will continue with the same management for now. Pulmonary department, neurology department, and infectious disease department on board. CRITICAL CARE TIME: 35 minutes. cc: Dru Marroquin MD
--- NOTE | 2019-01-24 08:45 | INFECTIOUS DISEASE PROGRESS NO ---
DATE: 01/24/2019 PRESENT ILLNESS: The patient has a bibasilar pneumonia and a staph bacteremia. The patient is continuing to have fever and leukocytosis. MEDICATIONS: This is the 4th day of treatment with vancomycin and the third day of treatment with cefepime. PHYSICAL EXAMINATION: Vital Signs: Temperature is 101 degrees, pulse 110, respirations 15, blood pressure 97/68. General: This is an ill-appearing middle-aged male. He is intubated and sedated. Head/eyes/ears/nose/throat: Patient has an orotracheal tube and an NG tube in place. No drainage is noted from the nose or ears. Neck: No meningismus. Lungs: Bilateral rhonchi. Cardiovascular: Heart rate is regular. Abdomen: Soft and nontender. Neurologic: The patient is obtunded. He did not respond to verbal stimuli. He does not have a tremor. Integument: No rash. LAB AND X-RAY: A pulmonary angiogram showed bibasilar pneumonia. Repeat blood cultures are pending. Chest x-ray showed no infiltrate, however. Pulmonary angiogram showed bibasilar pneumonia. Creatinine is 0.6. GFR is greater than 60. ASSESSMENT AND PLAN: The patient has bibasilar pneumonia and a staph bacteremia. My plan is for now I will continue vancomycin and cefepime. I have ordered a sputum culture. The patient's repeat blood cultures are pending. Because the patient had a Staph bacteremia which may have infected hematogenously the patient's metal on his leg and spine, the patient will require 6 weeks treatment for the bacteremia with vancomycin. COMORBIDITIES: The aortic insufficiency, injury to his ankle and spine which caused the patient to have metal placed on the ankle and cervical spine. cc: MD CLAIRE Paz
[2019-01-24] MEDS: ASPIRIN PO SCH (08:55)
--- NOTE | 2019-01-24 15:25 | PROGRESS NOTE ---
DATE: 01/24/2019 SUBJECTIVE: The patient decompensated since I last saw him. He was intubated. He has bibasilar pneumonia and Staph bacteremia and is being treated for this. Repeat head CT showed expected evolution of the large right MCA distribution ischemic stroke. OBJECTIVE: Vital Signs: The patient has been febrile. Blood pressure 105/67, has been as low as 80 systolic, pulse 110s. He is breathing over the ventilator. General: Mr. Jose is supine in bed on the ventilator. Sedation was held approximately five minutes prior to the start of my exam. Pupils are equal, four mm round, and reactive to bright light. Gaze is conjugate and there remains a right gaze preference. There is some horizontal eye movement with passive head turning. He vigorously resists passive eye opening as before. He does not follow commands. Corneals are brisk bilaterally. There is respiratory effort. I believe there is likely a left field cut. I did not get him to attend from his left side today. He withdraws his right upper and lower extremity to mild noxious stimuli. Subsequently, there is some spontaneous movement of that side seen. The left upper extremity remains flaccid. The left lower extremity with subtle movement seen distally. Plantar response is extensor on the left, flexor on the right. LABORATORY DATA: White count 17. Other labs reviewed in the chart. ASSESSMENT AND PLAN: Nondominant right middle cerebral artery ischemic stroke with more recent complications of pneumonia, bacteremia, and respiratory failure. Neuro exam without definite new deficit. His repeat head CT showed expected evolution. I would continue treating his underlying medical conditions per primary. Continue monitoring his neurologic status closely with low threshold to repeat head CT should he deteriorate clinically. cc: eJssica Sauceda MD
--- NOTE | 2019-01-24 18:43 | Carotid Study ---
DATE: 01/18/2019 REFERRING PHYSICIAN: INTERPRETING PHYSICIAN: Jareth Fisher MD HEALTHCARE MANAGEMENT CONSULTANT: Katelyn. FINDINGS: The velocities are noted. The right internal common carotid artery is 0; the left is 1.0. There is thrombus in the right internal. There is antegrade vertebral flow bilaterally. INTERPRETATION: 1. Right internal occlusion. 2. There is antegrade vertebral flow bilaterally. 3. No significant stenosis is noted on the left. cc: MD Calderon Jang MD [facility]
[2019-01-24] MEDS: LOVENOX SUBQ SCH (19:58)
--- NOTE | 2019-01-24 20:35 | PULMONOLOGY PROGRESS NOTE ---
DATE: 01/24/2019 SUBJECTIVE: The patient is sedated on mechanical ventilation. OBJECTIVE: Maximum temperature in the last 24 hours 100.8 degrees, BP 105/64, heart rate 119, respiratory rate 21, oxygen saturation 94% on mechanical ventilation. HEENT: Pupils are equal and reactive. Oropharynx appears clear. Neck is supple. Chest reveals coarse rhonchi bilaterally. Cardiac: Increased rate, regular rhythm. Abdomen is soft with positive bowel sounds. DIAGNOSTIC STUDIES: White blood count 17.28, hemoglobin 12.1, platelet count 132,000. Sodium 138, potassium 4.7, chloride 104, bicarbonate 24, BUN 21, creatinine 0.6, total protein 6.1, albumin 2.1. Arterial blood gas reveals a pH 7.41, pCO2 of 62, pO2 of 61. Chest x-ray is not changed. IMPRESSION: A 58-year-old with: 1. Aspiration pneumonia. 2. Acute hypoxemic respiratory failure. 3. Altered mental status. 4. Fevers. 5. Acute stroke. 6. Electronic cigarette use at the time of admission. PLAN: 1. Continue Clinimix. 2. Reinitiate weaning trials tomorrow if his fever curve improves or he becomes less toxic clinically. 3. Continue DVT prophylaxis. 4. Followup PF-4 antibody, but his platelet count is improving. CRITICAL CARE TIME: 30+ minutes. cc: Stephen Rodríguez MD
[2019-01-25] MEDS: MORPHINE IV PRN ×4 (00:27→16:49)
[2019-01-25] MEDS: DIPRIVAN 1% 1,000 MG/100 ML BOTTLE IV SCH ×7 (01:05→23:06)
[2019-01-25] MEDS: VANCOMYCIN 1,650 MG in NS 250 ML IV SCH ×2 (01:16→13:07)
[2019-01-25] MEDS: DUONEB (A & A) INH SCH ×6 (02:54→22:58)
[2019-01-25] MEDS: MAXIPIME 2 GM in NS 100 ML IV SCH ×3 (03:16→21:29)
[2019-01-25 04:25] LABS: ALLEN TEST YES; BE 3.5 mmoll (-3.0-3.0); BLOOD TYPE ARTERIAL; HCO3-(ACT) 27.6 mmoll (20.0-26.0); METHB 0.8 % (0.0-1.5); O2(CT) 15.5 mL/dL (15.0-23.0); PCO2(98.6) 33 mmHg (35-45); PO2(98.6) 64 mmHg (60-100); SAMPLE BLOOD; SAO2 95.3 % (95.0-100.0); SRATE 12 BPM; THB 11.8 g/dL (11.5-17.4); TVOL 600 mL; pH(98.6) 7.51 (7.35-7.45)
[2019-01-25 04:26] LABS: MODALITY VENTILATOR
[2019-01-25 05:08] LABS: BASO# 0.04 X1000 (0.0-0.2); BASO% 0.3 % (0.0-0.8); HEMATOCRIT 34.3 % (42.0-52.0); HEMOGLOBIN 10.9 g/dL (14.0-18.0); IMM GRAN# 0.61 X1000 (0.0-0.04); IMM GRAN% 4.1 % (0.0-0.5); LYMPH# 1.49 X1000 (1.2-3.4); MCH 29.1 PG (27-31); MCHC 31.8 g/dL (33-37); MCV 91.5 FL (81-99); MONO# 1.22 X1000 (0.11-0.59); MONO% 8.2 % (1.7-9.3); MPV 12.5 FL (7.4-10.4); NEUT# 11.18 X1000 (1.4-6.5); NEUT% 75.4 % (42.2-75.2); PLT 138 X1000 (130-400); RBC 3.75 XMIL (4.7-6.1); RDW 13.2 % (11.5-14.5); WBC 14.84 X1000 (4.8-10.8)
[2019-01-25 05:35] LABS: CK INDEX 0.4 (0.0-2.5); CK-MB 2.27 ng/mL (0.0-5.0)
[2019-01-25] MEDS: OFIRMEV 1000 MG/ISOTONIC SOLN 1,000 MG/100 ML BOTTLE IV PRN ×2 (05:47→17:13)
[2019-01-25] MEDS: CLINIMIX E 4.25%-5% SOLUTION 1,000 ML IV SCH ×2 (05:48→15:54)
[2019-01-25] MEDS: PROTONIX IV SCH (06:05)
[2019-01-25] MEDS: SODIUM CHLORIDE 0.9% INJ SCH (06:05)
[2019-01-25 06:20] LABS: AGAP 14; ALB/GLOB RATIO 0.5; ALKALINE PHOSPHATASE 69 U/L (32-122); BUN 21 mg/dL (8-22); CALCIUM 7.6 mg/dL (8.8-10.2); CHLORIDE 105 mmol/L (98-107); COSMO 286; CREATININE 0.6 mg/dL (0.7-1.2); ESTIMATED GFR > 60; GLUCOSE 156 mg/dL (70-104); GOT 33 U/L (10-34); GPT 33 U/L (10-44); POTASSIUM 4.1 mmol/L (3.5-5.1); SODIUM 140 mmol/L (136-145); TCO2 21 mmol/L (25-35); TOTAL BILIRUBIN 0.23 mg/dL (0.20-1.00)
--- NOTE | 2019-01-25 07:05 | Diag Imaging Result Doc PS360 ---
EXAM: CHEST-PORTABLE 01/25/2019 HISTORY: respiratory failure TECHNIQUE: AP portable at 0535 COMMENT: there is an endotracheal tube with its tip at thoracic inlet and an NG tube which passes below the diaphragm. Compared to 01/24/2019 there is increased opacification of the left lower lobe and also possibly of the right base although there is a considerable amount of apparatus obscuring the right chest. IMPRESSION: Left lower lobe atelectasis versus pneumonia. Electronically signed by Simone Phillips 01/25/2019 7:03 AM
[2019-01-25 07:09] LABS: BANDS 6 % (0-1); EOS 2 % (1-10); LYMPHS 14 % (21-51); MONO 6 % (1-9); SEGS 64 % (42-75)
--- NOTE | 2019-01-25 07:28 | PROGRESS NOTE ---
DATE: 01/25/2019 SUBJECTIVE: This patient is still on mechanical ventilation and sedated. White blood cell count decreased a little bit compared with yesterday, from 17.2 to 14.8. He is still tachycardic. He has good urine output. CK level decreased. Platelet count is going up. He is tolerating the feeding tube. He is still on Clinimix. We will continue with the same management, and hopefully we are going to be able to extubate this patient soon, but he is still having fever. The last one reported was at 4 a.m. at 101.3. Infectious Disease Department on board. OBJECTIVE: Vital Signs: Temperature at 4 a.m. was 101.3, pulse 108, respiratory rate 25, blood pressure 129/76, oxygen saturation 94% on mechanical ventilation. HEENT: Head normocephalic. No trauma. PERRLA. Neck: Supple. No JVD. No masses. Central trachea. Chest: Coarse breath sounds bilaterally with scattered crepitus and rhonchi mostly at the bases. Abdomen: Soft, nontender, nondistended. No hepatosplenomegaly. Extremities: No edema, no clubbing, no cyanosis. He has some pressure ulcers, especially right upper arm, right hip, and right big toe on the metatarsal area. Neurological: The patient is on mechanical ventilation and sedated. LABORATORY DATA: WBC 14.8, hemoglobin 10.9, hematocrit 34.3, platelets 138,000. Sodium 140, potassium 4.1, chloride 105, bicarbonate 21, BUN 21, creatinine 0.6, glucose 156, calcium 7.6. AST 33, ALT 33, alkaline phosphatase 69. CK level 589. Albumin 2. ASSESSMENT AND PLAN: 1. 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 Continue with aspirin. Due to this patient's rhabdomyolysis and elevated liver function tests, statin therapy was not started, but the liver function now looks better, and the rhabdomyolysis is also better. I believe we can start this patient on statin in the near future. 2. Acute rhabdomyolysis, slowly improving. Kidney function is good. Liver function tests are normal. 3. Hypernatremia, resolved. 4. Pneumonia. Continue with antibiotics as directed by Dr. Chamberlain. 5. Fever. This patient is still having fever. Today at 4 a.m., the temperature was 101.3 degrees. I will wait for more recommendations. New set of blood culture from 01/23/2019, two days ago, has been negative, as well as the one from 01/21/2019. 6. Bacteremia secondary to Staphylococcus hominis. Continue with antibiotics per Infectious Disease Department. He is still having fever. 7. Transaminitis, improved. 8. Acute kidney injury, resolved. 9. Hypokalemia, resolved. 10. Acute hypoxemic respiratory failure. Continue with ventilatory support directed by marine steward. 11. Sepsis. This patient meets criteria with fever, leukocytosis, tachypnea, tachycardia, and a source of infection. Will continue broad-spectrum antibiotics. 12. Multiple pressure wounds. Aware. 13. Thrombocytopenia. This is getting better. 14. Severe protein calorie malnutrition. Continue with tube feeds. 15. Gastrointestinal prophylaxis with Protonix. Overall, this patient is still remarkably sick. He has a high risk of mortality. Will continue with the same management for now. Pulmonary Department, Neurology Department, and Infectious Disease Department on board. CRITICAL CARE TIME: 30 minutes. cc: Dru Marroquin MD
[2019-01-25] MEDS: ASPIRIN PO SCH (08:32)
[2019-01-25] MEDS ORDERED: LASIX IV ONE (12:34)
[2019-01-25 13:02] LABS: ALLEN TEST YES; BLOOD TYPE ARTERIAL; HCO3-(ACT) 26.5 mmoll (20.0-26.0); METHB 0.7 % (0.0-1.5); O2(CT) 15.1 mL/dL (15.0-23.0); O2HB 96.5 % (95.0-99.0); PCO2(98.6) 33 mmHg (35-45); PO2(98.6) 81 mmHg (60-100); SAMPLE BLOOD; SAO2 98.6 % (95.0-100.0); THB 11.1 g/dL (11.5-17.4); pH(98.6) 7.49 (7.35-7.45)
[2019-01-25 13:03] LABS: MODALITY VENTILATOR
--- NOTE | 2019-01-25 16:31 | INFECTIOUS DISEASE PROGRESS NO ---
DATE: 01/25/2019 PRESENT ILLNESS: The patient has bibasilar pneumonia and a staph bacteremia. MEDICATIONS: This is day 4 for cefepime and day 5 of treatment with vancomycin. PHYSICAL EXAMINATION: Vital Signs: Temperature is 98.9 degrees, pulse 109, respirations 30, blood pressure 144/76. General: This is an ill-appearing middle-aged male. He has an oxygen mask on. He is no longer intubated. Head/eyes/ears/nose/throat: The patient has his NG tube in place but the orotracheal tube has been removed. Neck: No pain with movement of it. Lungs: Bilateral rhonchi. Cardiovascular: Heart rate is regular. Abdomen: Soft and nontender. Neurologic: The patient's eyes are open today. He did respond rarely to verbal stimuli. He does not have a tremor. LAB AND X-RAY: Chest x-ray shows left lower lobe atelectasis versus pneumonia. Blood cultures are pending. Sputum culture is pending. Urinalysis shows no white cells or bacteria. CK is down to 589. Liver function studies are normal. Creatinine is 0.6. GFR is greater than 60. Blood gases show a pH of 7.49, a PO2 of 81, a pCO2 of 33. CBC shows a white count of 14,840, hemoglobin 10.9, platelet count 138,000. ASSESSMENT AND PLAN: Patient has basilar pneumonia and Staph bacteremia. I plan to continue vancomycin and cefepime. Because the patient has metal in his leg and spine, he will require 6 weeks of treatment with IV vancomycin because the metal may have become infected when the patient was bacteremic. COMORBIDITIES: Aortic insufficiency, metal on the leg and spine. cc: Mansoor Chamberlain MD
--- NOTE | 2019-01-25 16:43 | PROGRESS NOTE ---
DATE: 01/25/2019 SUBJECTIVE: The patient has been extubated. He is more awake and following some commands per his brother who is at the bedside. T-max today is 101.3 current afebrile, blood pressure 144/76, pulse 109. Mr. Jose is supine in bed. He is awake, much more alert today than yesterday. He regards. He is a little bit slow in his responses. His pupils are equal, round and reactive to bright light. He continues to have right gaze preference and cannot get him to cross the midline. He gives a thumbs up, shows 2 fingers, lifts his right hand, points to his left hand when asked to. Wiggles his toes on the right when asked. Left arm is flaccid. There was minimal movement today seen on the left leg 1/5. Spontaneous movement on the right. Plantar response on the left remains extensor, flexor on the right. LABS: Reviewed in the chart. Platelet count 138,000 trending up, BUN 21, creatinine 0.6. Blood glucose low to mid 100s. AST, ALT normalized. ASSESSMENT AND PLAN: Recent nondominant right middle cerebral artery ischemic stroke. Appears stable today from a neurologic standpoint. He is more awake and following commands today. I would continue monitoring clinically as you treat his underlying medical conditions. Continue aspirin and statin therapy once able. cc: Jessica Sauceda MD
--- NOTE | 2019-01-25 18:13 | Diag Imaging Result Doc PS360 ---
EXAM: CHEST-PORTABLE HISTORY: intubation TECHNIQUE: Single view COMPARISON: 5:35 AM FINDINGS: Endotracheal tube appears unchanged. It is in good position. Nasogastric tube overlies the esophagus and stomach. Right-sided PICC line in good position. Improved inspiratory effort. The lung bases have partially cleared. IMPRESSION: Interval improvement Electronically signed by Sukhjinder Valdes 01/25/2019 6:11 PM
--- NOTE | 2019-01-25 18:59 | PULMONOLOGY PROGRESS NOTE ---
DATE: 01/25/2019 INTERIM HISTORY: The patient was seen 3 times today. He was seen earlier this morning and was placed on a spontaneous breathing trial. He did well. He was extubated around noon. He appeared to be doing well. He was re-evaluated for extubation. He had poor cough. This afternoon, he had increasing oxygen requirements with audible rhonchi. He was unable to cough and clear his secretions. I was notified by the nursing staff and he was reintubated by this practitioner about 1740 this afternoon (see separate dictation). OBJECTIVE: Vital Signs: Maximum temperature today 101.3 degrees, blood pressure 136/89, heart rate 125, respiratory rate 36, oxygen saturation 93% HEENT: Pupils are equal. Oropharynx is without lesions. Neck: Supple. Chest: Reveals rhonchi bilaterally. Cardiac: S1, S2, increased rate. Abdomen: Soft. Extremities: Without edema. LABORATORY DATA: Chest x-ray this morning reveals some atelectasis at the left base. Chest x-ray following intubation reveals improved aeration in the lung bases. Arterial blood gas #1 at 4:15 this morning: pH 7.51, pCO2 of 33, PO2 of 64. Arterial blood gas on a spontaneous breathing trial at 12:55 reveals pH 7.49, pCO2 of 33, PO2 of 81. Heparin-induced platelet antibody studies negative. IMPRESSION: A 58-year-old with 1. Aspiration pneumonia. 2. Acute hypoxemic respiratory failure. 3. Acute right middle cerebral artery stroke with right internal carotid artery occlusion. 4. Acute hypoxemic respiratory failure. 5. Fevers. 6. Electronic cigarette use at the time of admission. DISCUSSION: A 58-year-old with problems outlined above. The patient was extubated and was strong enough for extubation but is not coughing and clearing his secretions. The patient will need a tracheostomy during his recovery phase from this stroke. PLAN: 1. Re-intubation (completed as outlined above). 2. Re-initiate tube feeds. 3. Continue antibiotics per Infectious Disease. 4. Consult General Surgery. The patient will need a tracheostomy. The nursing staff did discuss the situation with his sister who did wish to proceed with re- intubation. Time spent in critical care management: Greater than 1.5 hours with the reintubation bundled into this time. cc: MD CLAIRE Bonner
--- NOTE | 2019-01-25 19:15 | OPERATIVE NOTE ---
PROCEDURE DATE: 01/25/2019 PROCEDURE PERFORMED: Intubation. CLINICAL INDICATIONS: A 58-year-old with stroke and unable to clear his bronchial secretions. He was reintubated after extubation earlier today. DESCRIPTION OF PROCEDURE: The patient was informed that reintubation was planned. This was also relayed to the family by the nursing staff. A time out was performed prior to this procedure. All equipment was in place including a suction device, the endotracheal tube, a disposable capnometer, and the GlideScope with a number 8 tube. A time out was performed and all members of the team agreed with the procedure and with the patient and his identifying information, which was his birthday. After the time out was completed, I pushed 80 mg of propofol, which had been loaded and attached by the nursing staff. Ambu ventilation was performed by the respiratory therapist. When the patient was sedated, the GlideScope was advanced over the tongue. There was copious amounts of mucopurulent secretions in the posterior pharynx, which were suctioned clear. The vocal cords were easily visualized. The number 8 tube was advanced through the cords and secured manually at approximately 23 cm from the lip. The patient's endotracheal tube immediately filled with copious amounts of thick secretions. These were suctioned clear. The patient's endotracheal tube was secured by the respiratory therapist and mechanical ventilation was reinitiated. Postprocedure chest x-ray revealed good endotracheal tube placement with improved aeration in both lung bases. cc: Stephen Rodríguez MD
[2019-01-25] MEDS: MUCOMYST 20% INH SCH (19:37)
[2019-01-25] MEDS: LOVENOX SUBQ SCH (21:29)
[2019-01-26] MEDS: VANCOMYCIN 1,650 MG in NS 250 ML IV SCH ×2 (01:03→13:39)
[2019-01-26] MEDS: DIPRIVAN 1% 1,000 MG/100 ML BOTTLE IV SCH ×8 (01:50→22:52)
[2019-01-26] MEDS: DUONEB (A & A) INH SCH ×6 (03:30→23:24)
[2019-01-26] MEDS: MAXIPIME 2 GM in NS 100 ML IV SCH ×3 (03:35→19:48)
[2019-01-26 04:42] LABS: ALLEN TEST YES; BE 2.9 mmoll (-3.0-3.0); BLOOD TYPE ARTERIAL; HCO3-(ACT) 27.3 mmoll (20.0-26.0); PCO2(98.6) 34 mmHg (35-45); PO2(98.6) 163 mmHg (60-100); SAMPLE BLOOD; SRATE 12 BPM; TVOL 600 mL; pH(98.6) 7.49 (7.35-7.45)
[2019-01-26 04:43] LABS: MODALITY VENTILATOR
[2019-01-26] MEDS: CLINIMIX E 4.25%-5% SOLUTION 1,000 ML IV SCH ×2 (05:58→16:19)
[2019-01-26] MEDS: PROTONIX IV SCH (06:00)
[2019-01-26 06:31] LABS: AGAP 13; ALB/GLOB RATIO 0.5; ALBUMIN 2.2 g/dL (3.5-5.0); ALKALINE PHOSPHATASE 84 U/L (32-122); BUN 27 mg/dL (8-22); CALCIUM 8.2 mg/dL (8.8-10.2); CHLORIDE 102 mmol/L (98-107); COSMO 285; CREATININE 0.6 mg/dL (0.7-1.2); ESTIMATED GFR > 60; GLUCOSE 142 mg/dL (70-104); GOT 42 U/L (10-34); GPT 37 U/L (10-44); POTASSIUM 3.8 mmol/L (3.5-5.1); SODIUM 139 mmol/L (136-145); TCO2 24 mmol/L (25-35); TOTAL BILIRUBIN 0.25 mg/dL (0.20-1.00); TOTAL PROTEIN 6.6 g/dL (6.3-8.3)
[2019-01-26 06:38] LABS: BASO# 0.05 X1000 (0.0-0.2); BASO% 0.4 % (0.0-0.8); EOS# 0.23 X1000 (0.0-0.7); EOS% 1.6 % (0.0-10.0); HEMATOCRIT 34.8 % (42.0-52.0); IMM GRAN# 0.75 X1000 (0.0-0.04); IMM GRAN% 5.3 % (0.0-0.5); LYMPH% 10.6 % (20.5-51.1); MCH 28.8 PG (27-31); MCHC 31.6 g/dL (33-37); MCV 91.1 FL (81-99); MONO# 1.32 X1000 (0.11-0.59); MONO% 9.3 % (1.7-9.3); MPV 12.7 FL (7.4-10.4); NEUT# 10.35 X1000 (1.4-6.5); NEUT% 72.8 % (42.2-75.2); PLT 159 X1000 (130-400); RBC 3.82 XMIL (4.7-6.1); RDW 13.3 % (11.5-14.5)
[2019-01-26 07:01] LABS: BANDS 3 % (0-1); LYMPHS 10 % (21-51); MONO 5 % (1-9); SEGS 77 % (42-75)
[2019-01-26] MEDS: MUCOMYST 20% INH SCH ×2 (07:19→19:20)
--- NOTE | 2019-01-26 07:24 | Diag Imaging Result Doc PS360 ---
EXAM: CHEST-PORTABLE INDICATION: respiratory failure TECHNIQUE: One view COMPARISON: 01/25/2019 FINDINGS: Support tubes and lines are in stable positions. Lower lobe opacities likely representing atelectasis predominantly is approximately stable given differences in inspiration. No new consolidation is identified. Cardiac silhouette is stable. IMPRESSION: Essentially stable chest. Electronically signed by Shakeel Chris 01/26/2019 7:21 AM
--- NOTE | 2019-01-26 07:27 | PROGRESS NOTE ---
DATE: 01/26/2019 SUBJECTIVE: This patient has been extubated and reintubated yesterday, 01/25/2019. It looks like he was unable to clear his bronchial secretions. No acute events overnight. For now, we will continue with the same management. OBJECTIVE: Vital Signs: Temperature 99.9 degrees, pulse 88, respiratory rate 20, blood pressure 133/86, oxygen saturation 99% on mechanical ventilation. HEENT: Head normocephalic. No trauma. PERRLA. Neck: Supple. No JVD. No masses. Central trachea. Chest: Coarse breath sounds bilaterally with some crepitus and rhonchi, mostly at the bases. Abdomen: Soft, nontender, nondistended. No hepatosplenomegaly. Extremities: Upper extremity edema 2+. No lower extremity edema. No clubbing. No cyanosis. Neurological Examination: This patient is on mechanical ventilation and sedated. Skin: He has some pressure ulcers, especially right upper arm, right hip, right big toe at the metatarsal area. Laboratory: WBC 14.2, hemoglobin 11, hematocrit 34.8, platelets 159,000. Sodium 139, potassium 3.8, chloride 102, bicarbonate 24, BUN 27, creatinine 0.6, glucose 142, calcium 8.2. AST 42, ALT 37, alkaline phosphatase 84. ASSESSMENT AND PLAN: 1. 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 For now, we will continue with aspirin. He came in with rhabdomyolysis and elevated liver function tests. Hopefully, we can start statin therapy in the near future. 2. Acute rhabdomyolysis, improved. Kidney function is good. Liver function better. 3. Hypernatremia, resolved. 4. Pneumonia. Continue antibiotics, directed by Dr. Chamberlain. 5. Fever. This patient is still having some fever. Yesterday at 4 a.m., he had a temperature of 101.3 degrees but mostly he has been in the high 99. 6. Bacteremia secondary to Staphylococcus hominis. Continue with antibiotics per infectious disease department. 7. Transaminitis, improved. 8. Acute kidney injury, resolved. 9. Hypokalemia, resolved. 10. Acute hypoxemic respiratory failure. This patient had been extubated on 01/25/2019 and reintubated because he was not able to clear his secretions, the same day. We will continue with mechanical ventilation for now. 11. Sepsis. This patient meets criteria with fever, leukocytosis, tachypnea, tachycardia, and source of infection. We will continue broad-spectrum antibiotics. 12. Multiple pressure wounds. Aware. 13. Thrombocytopenia, resolved. 14. Severe protein calorie malnutrition. Continue with tube feeds. 15. Gastrointestinal prophylaxis with Protonix. 16. The patient had been extubated and reintubated yesterday, 01/25/2019. He was unable to clear his secretions. For now, we will continue with the same management. CRITICAL CARE TIME: 30 minutes. cc: Dru Marroquin MD
[2019-01-26] MEDS: ASPIRIN PO SCH (08:35)
--- NOTE | 2019-01-26 09:00 | CONSULTATION ---
DATE OF CONSULTATION: 01/26/2019 Mr. Ravi Jose is a 58-year-old white male in our ICU intubated. It appears that he suffered a stroke at his home and was admitted to our hospital on 01/18/2019. He does have a history of hypertension. He has been intubated during his hospitalization. They tried to extubate him yesterday and had to reintubate him and we were asked to place a tracheostomy for long-term ventilation. PAST MEDICAL HISTORY: Hypertension. PAST SURGICAL HISTORY: Ankle surgery and a cervical fusion. ALLERGIES: Eggs. CURRENT MEDICATIONS: Aspirin. SOCIAL HISTORY: Smoker and he also has a history of vaping. History of alcohol abuse and drug abuse. FAMILY HISTORY: A family history was reviewed and was noncontributory. REVIEW OF SYSTEMS: A 14 point review of systems was reviewed with his brother and was essentially negative except for the history of present illness. PHYSICAL EXAMINATION: On exam, Mr. Ravi Jose is a middle aged white male, has a jimenez and mustache. He is in our ICU sedated. He has an NG tube which is being used for feeding and endotracheal tube. His heart has a regular rate. Lungs were clear. Abdomen was soft without tenderness. He had palpable femoral pulses. He had no significant peripheral edema. Neurologically, he is sedated. Temperature 99.9 degrees, heart rate 88, blood pressure 136/83, O2 saturation 97%. His weight is 198 pounds. He has a Keith catheter tube in place. LABORATORY: His white blood cell count is 14, hematocrit is 35%. BUN and creatinine 27 and 0.6. His ventilator settings are assist control 12 FiO2 100% since he has been placed back on the ventilator. PEEP is +5, 600 tidal volume. It appears that he has atelectasis bilaterally in the lower lung arrington. IMPRESSION: 1. Pulmonary failure. 2. Recent failure of extubation. 3. Possible need for long-term ventilation. PLAN: We were asked to place a tracheostomy. I have discussed this with his brother by phone this morning. We specifically discussed risks, the patient is on FiO2 of 100%. He does have a history of cervical fusion. We discussed risks of bleeding, infection, displacement of a tracheostomy tube. He understands the need for the tracheostomy and its risks and wants to proceed. cc: Blanca Romero MD
--- NOTE | 2019-01-26 11:00 | INFECTIOUS DISEASE PROGRESS NO ---
DATE: 01/26/2019 The patient has a bibasilar pneumonia and Staph bacteremia. The patient was off the ventilator but had to be reintubated yesterday. MEDICATIONS: This is day 5 for treatment with cefepime and day 6 with treatment with vancomycin. PHYSICAL EXAMINATION: Vital signs: Temperature is 100, pulse 88, respirations 17, blood pressure 136/83. General: This is an ill-appearing middle-aged male. He is intubated and sedated. Head, Eyes, Ears, Nose, and Throat: The patient has an orotracheal tube and NG tube in place. Neck: No stiffness. Lungs: Bilateral rhonchi. Cardiovascular: Heart rate is regular. Abdomen: Soft and nontender. Neurologic: The patient is obtunded. He did not respond to verbal stimuli. He does not have a tremor. LAB AND X-RAY: Chest x-ray shows bibasilar atelectasis, this is the most recent chest x-ray that shows that. CBC shows a white count of 14,200, hemoglobin 11, and platelet count 159,000. Blood gases show a pH of 7.49, a pO2 of 163, and a pCO2 of 34. Creatinine is 0.6, GFR is greater than 60, AST is 42. Sputum is growing a gram-negative branden. Blood is growing Staph epidermidis. ASSESSMENT AND PLAN: The patient has pneumonia and bacteremia. I plan on continuing the patient with the current antibiotics. The patient will require 6 weeks of treatment with IV vancomycin because the metal he has in his body may have become infected hematogenously while the patient was bacteremic. COMORBIDITIES: Aortic insufficiency and metal on the leg and spine. cc: Mansoor Chamberlain MD
[2019-01-26] MEDS ORDERED: XYLOCAINE 1%/EPI 1:100,000 ONE (11:21)
--- NOTE | 2019-01-26 11:38 | PROGRESS NOTE ---
DATE: 01/26/2019 Mr. Jose is intubated, supine, not moving spontaneously. There was minimal withdrawal with noxious stimulation over the limbs, consistently better with the right limbs than the left. He did not open his eyes, appear to be alert, or to communicate with me. Lateral eye movements are full. Plans for tracheotomy are noted. I do not have any new suggestions from Neurology standpoint. cc: William Otoole III, MD
[2019-01-26] MEDS ORDERED: VERSED ONE (11:58)
[2019-01-26] MEDS ORDERED: NORCURON ONE (12:26)
[2019-01-26] MEDS ORDERED: STERILE WATER INJ. ONE (12:26)
[2019-01-26] MEDS ORDERED: FENTANYL ONE (12:38)
--- NOTE | 2019-01-26 13:45 | Diag Imaging Result Doc PS360 ---
EXAM: CHEST-PORTABLE 01/26/2019 HISTORY: trach placement TECHNIQUE: AP portable upright at 1331 COMMENT: There is a tracheostomy tube. This appears to be within the trachea. There is an NG tube which passes below the diaphragm. There is some hazy opacity over the lung bases particularly on the left. There is apparent platelike atelectasis on the right side over the hemidiaphragm. There is a PICC line on the right. IMPRESSION: Bibasilar atelectasis plus minus pleural fluid. Electronically signed by Simone Phillips 01/26/2019 1:43 PM
--- NOTE | 2019-01-26 13:48 | OPERATIVE NOTE ---
PROCEDURE DATE: 01/26/2019 PREOPERATIVE DIAGNOSIS: Pulmonary failure. POSTOPERATIVE DIAGNOSIS: Pulmonary failure. PRINCIPAL PROCEDURE: Tracheostomy. SURGEON: Blanca Romero MD. ANESTHESIA: General. ESTIMATED BLOOD LOSS: 10 mL. DRAINS: None. INDICATIONS: Ravi Jose is a 58-year-old white male who appears to have suffered a stroke and has been hospitalized in our ICU intubated. Extubation was tried yesterday but they had to quickly reintubate him and we were asked to place a tracheostomy. DESCRIPTION OF PROCEDURE: The patient was brought to the operating room. He was placed supine. I positioned him with a roll underneath his shoulders to extend his neck. He was already intubated and received general anesthesia. His anterior neck was prepped and draped in a sterile field as was his chest. I used local anesthetic at my incision site. I marked a longitudinal incision from the cricoid cartilage towards the sternal notch. I made the incision with a 15 blade scalpel then used cautery to transect through the soft tissue and divided the strap muscles within their midline and retract them with [employer]. We made sure that we dissected out the anterior trachea. We identified the cricoid cartilage and I removed the anterior aspect of the 2nd intratracheal ring using mostly cautery and scissors creating a window anteriorly in the trachea so that I could place an 8-Iranian Shiley tracheostomy tube directly into the trachea after the endotracheal tube was backed out per SPEECH CLINICIAN. I also had a tracheal hook in the cricoid cartilage to control the trachea as I placed the tracheostomy tube. We removed the obturator and placed the inner cannula of the tracheostomy tube, hooked the patient up to the ventilator and made sure that we had end-tidal CO2. We removed our retractors and the tracheal hook. I secured the tracheostomy to the skin with two 0 silk stitches and then I used trach tape to secure the tracheostomy around the neck. Dressings were applied. The cuff was inflated and it appeared that the tracheostomy tube was in good position and he was being ventilated well. Plans are for him to go back to the ICU. cc: Blanca Romero MD
[2019-01-26] MEDS: LOVENOX SUBQ SCH (19:48)
[2019-01-26] MEDS: OFIRMEV 1000 MG/ISOTONIC SOLN 1,000 MG/100 ML BOTTLE IV PRN (19:48)
--- NOTE | 2019-01-26 23:36 | PULMONOLOGY PROGRESS NOTE ---
DATE: 01/26/2019 SUBJECTIVE: The patient is sedated on mechanical ventilation. OBJECTIVE: Vital Signs: The patient has been afebrile for the last 24 hours. Blood pressure 142/85, heart rate 90, respiratory rate 28, oxygen saturation 97% on 60% FiO2. HEENT: Pupils are equal. Oropharynx appears clear. Neck: Supple. Chest: Reveals decreased breath sounds right base with scattered rhonchi bilaterally. Cardiac: S1, S2. Abdomen: Soft. Extremities: Without edema. LABORATORIES: Arterial blood gas this morning reveals pH 7.49, pCO2 of 34, PO2 of 163. Chest x- ray reveals bibasilar infiltrates, right greater than left, without change. Sputum cultures are growing a gram-negative branden. Arterial blood gas pH 7.49, pCO2 of 34, PO2 of 163. Sodium 139, potassium 3.8, chloride 102, bicarbonate 24, BUN 27, creatinine 0.6. IMPRESSION: A 58-year-old with 1. Cerebrovascular accident with recurrent pneumonia and recurrent hypoxemic respiratory failure due to inability to control secretions. 2. 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 3. Fevers. 4. Electronic cigarette use at the time of admission. DISCUSSION: A 58-year-old with problems outlined above. The patient passed his spontaneous breathing trial, but was unable to control his secretions through coughing. He will need a tracheostomy. There has been a surgical consultation with Dr. Fabrizio Romero. PLAN: 1. Anticipate tracheostomy placement. 2. Continue nutrition. 3. Await culture report. Antibiotics are being managed by Infectious Disease. 4. Overall prognosis is guarded. The patient will likely require a PEG tube as well in the near future. TIME SPENT: Critical care management 30+ minutes. cc: Stephen Rodríguez MD
[2019-01-26] MEDS: MORPHINE IV PRN (23:41)
[2019-01-27] MEDS: VANCOMYCIN 1,650 MG in NS 250 ML IV SCH ×2 (00:19→12:08)
[2019-01-27] MEDS: DIPRIVAN 1% 1,000 MG/100 ML BOTTLE IV SCH ×8 (01:22→21:46)
[2019-01-27] MEDS: CLINIMIX E 4.25%-5% SOLUTION 1,000 ML IV SCH ×2 (03:05→15:55)
[2019-01-27] MEDS: DUONEB (A & A) INH SCH ×6 (03:36→23:28)
[2019-01-27] MEDS: MAXIPIME 2 GM in NS 100 ML IV SCH ×3 (03:42→19:14)
[2019-01-27 04:22] LABS: ALLEN TEST YES; BLOOD TYPE ARTERIAL; HCO3-(ACT) 25.6 mmoll (20.0-26.0); METHB 1.1 % (0.0-1.5); O2HB 93.6 % (95.0-99.0); PCO2(98.6) 27 mmHg (35-45); PO2(98.6) 66 mmHg (60-100); SAMPLE BLOOD; SAO2 96.1 % (95.0-100.0); SRATE 12 BPM; THB 12.9 g/dL (11.5-17.4); TVOL 600 mL; pH(98.6) 7.53 (7.35-7.45)
[2019-01-27 04:23] LABS: MODALITY VENTILATOR
[2019-01-27 05:48] LABS: BASO# 0.04 X1000 (0.0-0.2); BASO% 0.3 % (0.0-0.8); EOS# 0.13 X1000 (0.0-0.7); HEMATOCRIT 33.3 % (42.0-52.0); HEMOGLOBIN 10.6 g/dL (14.0-18.0); IMM GRAN% 6.7 % (0.0-0.5); LYMPH# 1.32 X1000 (1.2-3.4); LYMPH% 9.9 % (20.5-51.1); MCH 28.9 PG (27-31); MCHC 31.8 g/dL (33-37); MCV 90.7 FL (81-99); MONO# 1.26 X1000 (0.11-0.59); MONO% 9.4 % (1.7-9.3); MPV 12.1 FL (7.4-10.4); NEUT# 9.69 X1000 (1.4-6.5); NEUT% 72.7 % (42.2-75.2); PLT 182 X1000 (130-400); RBC 3.67 XMIL (4.7-6.1); RDW 13.1 % (11.5-14.5); WBC 13.34 X1000 (4.8-10.8)
[2019-01-27] MEDS: PROTONIX IV SCH (06:02)
[2019-01-27] MEDS: SODIUM CHLORIDE 0.9% INJ SCH (06:02)
[2019-01-27 06:20] LABS: AGAP 13; ALB/GLOB RATIO 0.6; ALBUMIN 2.3 g/dL (3.5-5.0); ALKALINE PHOSPHATASE 94 U/L (32-122); BUN 23 mg/dL (8-22); CALCIUM 7.8 mg/dL (8.8-10.2); CHLORIDE 106 mmol/L (98-107); COSMO 285; CREATININE 0.5 mg/dL (0.7-1.2); ESTIMATED GFR > 60; GLUCOSE 138 mg/dL (70-104); GOT 48 U/L (10-34); GPT 48 U/L (10-44); POTASSIUM 3.9 mmol/L (3.5-5.1); SODIUM 140 mmol/L (136-145); TCO2 21 mmol/L (25-35); TOTAL BILIRUBIN 0.23 mg/dL (0.20-1.00); TOTAL PROTEIN 6.4 g/dL (6.3-8.3)
[2019-01-27 06:37] LABS: BANDS 6 % (0-1); EOS 1 % (1-10); LYMPHS 15 % (21-51); MONO 2 % (1-9); SEGS 75 % (42-75)
--- NOTE | 2019-01-27 06:42 | Diag Imaging Result Doc PS360 ---
CHEST-PORTABLE - 01/27/2019 INDICATION: respiratory failure COMPARISON: 01/26/2019 FINDINGS: Support lines and tubes are stable. There are stable bibasilar airspace opacifications/infiltrates. Heart size remains normal. Pulmonary vascularity is top normal as well. IMPRESSION: No change from prior. Electronically signed by Cameron Sainz 01/27/2019 6:40 AM
--- NOTE | 2019-01-27 07:55 | PROGRESS NOTE ---
DATE: 01/27/2019 SUBJECTIVE: This patient was extubated and reintubated 2 days ago on 01/25/2019. Yesterday, he had a tracheostomy done successfully. Right now, he is on mechanical ventilation and sedated. He is getting feeding tube, but likely he will need to get a PEG tube as well. OBJECTIVE: Vital Signs: Temperature 97.7 degrees, pulse 108, respiratory rate 25, blood pressure 118/72, oxygen saturation 94% on mechanical ventilation. HEENT: Head normocephalic. No trauma. PERRLA. Neck: Supple. No JVD. No masses. Central trachea. Chest: Coarse breath sounds bilaterally with some crepitus and rhonchi, mostly at the bases. Abdomen: Soft, nontender, nondistended. No hepatosplenomegaly. Extremities: Upper extremity edema 2+. No lower extremity edema. No cyanosis. Neurological: The patient is on mechanical ventilation and sedated. Skin: He has some pressure ulcers, especially right upper arm, right hip, and right big toe at the metatarsal area. LABORATORY DATA: WBC 13.3, hemoglobin 10.6, hematocrit 33.3, platelets 182,000. Sodium 140, potassium 3.9, chloride 106, bicarbonate 21, BUN 23, creatinine 0.5, glucose 138, calcium 7.8. Total bilirubin 0.23, AST 48, ALT 48, alkaline phosphatase 94, albumin 23. ASSESSMENT AND PLAN: 1. 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 For now, will continue with the same management. Liver function tests are a little bit elevated still, so I will hold for now the statin. 2. Acute rhabdomyolysis and acute kidney injury, resolved. 3. Hypernatremia, resolved. 4. Pneumonia. Continue antibiotics directed by Dr. Chamberlain. 5. Fever. He is still having some low-grade temperature, especially yesterday and during the night. 6. Bacteremia secondary to Staphylococcus hominis. Continue antibiotics per Infectious Disease Department. 7. Transaminitis, getting better. 8. Acute kidney injury, resolved. 9. Hypokalemia, resolved. 10. Acute hypoxemic respiratory failure. This patient has been extubated on 01/25/2019, and reintubated because he was not able to clear his secretions. Yesterday, he had a tracheostomy placed. Continue with mechanical ventilation for now. 11. Sepsis. Continue with the same management. 12. Multiple pressure wounds. Aware. 13. Thrombocytopenia, resolved. 14. Severe protein calorie malnutrition. Continue with feeding tube. 15. Gastrointestinal prophylaxis with Protonix. Due to respiratory failure and because the patient was not able to clear his secretions, the decision to put a tracheostomy tube has been made. Yesterday, Dr. Romero did the procedure. Likely, this patient will need also to get a percutaneous endoscopic gastrostomy tube in the near future. For now, will continue with the same management. cc: Dru Marroquin MD
[2019-01-27] MEDS: MUCOMYST 20% INH SCH ×2 (08:24→19:30)
[2019-01-27] MEDS: ASPIRIN PO SCH (08:40)
[2019-01-27] MEDS: MORPHINE IV PRN (09:14)
--- NOTE | 2019-01-27 12:21 | INFECTIOUS DISEASE PROGRESS NO ---
DATE: 01/27/2019 PRESENT ILLNESS: Mr. Jose is being treated for bibasilar pneumonia with a gram- negative branden growing. There is also Staph hominis bacteremia. There is still a low-grade temperature as well as a leukocytosis. MEDICATIONS: Today is day 6 of cefepime 2 g IV every 8 hours and day 7 of IV vancomycin per pharmacy dosing. Based on his sterile blood cultures, today is day 6 of treatment for his bacteremia. PHYSICAL EXAMINATION: Vital Signs: Temperature is 99.5 degrees, pulse rate 108, respiratory rate 24, blood pressure 121/72, O2 saturation is 95% on a 40% FiO2 on the mechanical ventilator. General: This is a critically ill-appearing, middle-aged gentleman. He is lying in the bed, intubated on the mechanical ventilator and sedated. HEENT: Atraumatic, normocephalic. Oral mucous membranes are pink and moist. Conjunctivae are pink. Neck: Supple. Trachea is midline. He does have a tracheostomy tube in place without edema or erythema to the site. There is a small amount of bloody drainage noted around the stoma. Cardiovascular: Heart rate and rhythm are regular and fast, sinus tachycardia on the monitor. Respiratory: Lung sounds are generally clear to auscultation in the upper lobes, diminished in the bases. He is breathing above the set rate on the ventilator and is tachypneic. Abdomen: Soft, round and nontender. Bowel sounds are active. The patient has an NG tube and is receiving tube feedings. Extremities: There is mild edema noted to the upper and lower extremities with 2+ pedal and radial pulses bilaterally. Integumentary: There is a PICC line in place to the right upper arm. That site is without edema, erythema, or drainage. Neurologic: The patient is sedated but will arouse and move his head side- to-side. LABORATORY AND X-RAY: Today his white count is 13.34, hemoglobin 10.6, platelet count 182,000. On a 40% FiO2, his pH is 7.53, pCO2 of 27, PO2 66, HC03 of 25.6. Creatinine is 0.5 estimated GFR is greater than 60. Total bilirubin is 0.23, AST 48, ALT 48, alkaline phosphatase 94. He previously grew Staph hominis in his blood. There is currently a gram-negative branden growing in his sputum and the final report is pending. Chest x-ray today shows no change with bibasilar air space opacification/infiltrates. ASSESSMENT AND PLAN: Mr. Jose is being treated for bibasilar pneumonia and Staph hominis bacteremia. He continues to have a low-grade fever and leukocytosis. There is a gram-negative branden growing in his sputum. He is appropriately dosed for the possibility of Pseudomonas. For now, we will continue his vancomycin and cefepime as ordered. These plans have been discussed with and recommended by Dr. Chamberlain. COMORBIDITIES: Include cerebrovascular accident with tracheostomy placement yesterday, and use of electronic cigarettes. Dictated by GIOVANA Medina for Mansoor Chamberlain MD cc: Mansoor Chamberlain MD [facility]
--- NOTE | 2019-01-27 13:21 | PROGRESS NOTE ---
DATE: 01/27/2019 Mr. Jose's trach appears to be in good place by chest x-ray. He remains on the ventilator, and there is no abnormal bleeding from around the trach site. cc: Blanca Romero MD
[2019-01-27] MEDS: LOVENOX SUBQ SCH (19:14)
--- NOTE | 2019-01-27 20:37 | PULMONOLOGY PROGRESS NOTE ---
DATE: 01/23/2019 SUBJECTIVE: The patient is sedated. He appears to be comfortable on mechanical ventilation. OBJECTIVE: Vital Signs: Maximum temperature in the last 24 hours 100.8 degrees, BP 120/78, heart rate 92, respiratory rate 24 oxygen, saturation at 97%. HEENT: Pupils are equal. Oropharynx appears clear. Neck: Supple with a new tracheostomy in place. Site is clear and without bleeding or drainage. Chest: Reveals occasional rhonchi bilaterally. Cardiac: S1-S2. Abdomen: Soft with positive bowel sounds. Extremities: Reveal +1 peripheral edema. LABORATORIES: Sputum culture reveals gram-negative branden. Chest x-ray reveals shallow inspiration without significant consolidation. Sodium 140, potassium 3.9, chloride 106, bicarbonate 21, BUN 23, creatinine 0.5. White blood count 13.3, hemoglobin 10.6, platelet count 182,000. Arterial blood gas, pH 7.53, pCO2 of 27, pO2 of 66. IMPRESSION: A 58-year-old with: 1. Acute stroke with occlusion of the right internal carotid artery. 2. Aspiration pneumonia. 3. Status post failed extubation with subsequent tracheostomy placement. 4. Acute hypoxemic respiratory failure. 5. Electronic cigarette use at the time of admission. PLAN: 1. Continue tube feeds. 2. Continue antibiotics to be adjusted based on sputum cultures. 3. Continue DVT prophylaxis. 4. Initiate trach collar trials tomorrow morning. TIME SPENT: The time spent in critical care management was 30+ minutes. cc: Stephen Rodríguez MD
[2019-01-28] MEDS: DIPRIVAN 1% 1,000 MG/100 ML BOTTLE IV SCH ×3 (00:31→05:34)
[2019-01-28] MEDS: VANCOMYCIN 1,650 MG in NS 250 ML IV SCH (00:31)
[2019-01-28] MEDS: DUONEB (A & A) INH SCH ×6 (03:26→23:18)
[2019-01-28] MEDS: MAXIPIME 2 GM in NS 100 ML IV SCH (03:56)
[2019-01-28] MEDS: CLINIMIX E 4.25%-5% SOLUTION 1,000 ML IV SCH ×2 (03:56→15:47)
[2019-01-28 04:33] LABS: ALLEN TEST YES; BE -0.4 mmoll (-3.0-3.0); BLOOD TYPE ARTERIAL; HCO3-(ACT) 24.6 mmoll (20.0-26.0); O2(CT) 16.6 mL/dL (15.0-23.0); PCO2(98.6) 27 mmHg (35-45); PO2(98.6) 75 mmHg (60-100); SAMPLE BLOOD; SAO2 97.6 % (95.0-100.0); SRATE 12 BPM; THB 12.4 g/dL (11.5-17.4); TVOL 600 mL; pH(98.6) 7.51 (7.35-7.45)
[2019-01-28 04:34] LABS: MODALITY VENTILATOR
[2019-01-28] MEDS: PROTONIX IV SCH (06:13)
[2019-01-28 06:21] LABS: AGAP 14; ALB/GLOB RATIO 0.6; ALBUMIN 2.4 g/dL (3.5-5.0); ALKALINE PHOSPHATASE 87 U/L (32-122); BUN 23 mg/dL (8-22); CALCIUM 8.2 mg/dL (8.8-10.2); CHLORIDE 106 mmol/L (98-107); COSMO 285; CREATININE 0.5 mg/dL (0.7-1.2); ESTIMATED GFR > 60; GLUCOSE 141 mg/dL (70-104); GOT 47 U/L (10-34); GPT 55 U/L (10-44); POTASSIUM 4.1 mmol/L (3.5-5.1); SODIUM 140 mmol/L (136-145); TCO2 20 mmol/L (25-35); TOTAL BILIRUBIN 0.23 mg/dL (0.20-1.00); TOTAL PROTEIN 6.5 g/dL (6.3-8.3)
--- NOTE | 2019-01-28 07:09 | Diag Imaging Result Doc PS360 ---
EXAM: CHEST-PORTABLE 01/28/2019 HISTORY: respiratory failure TECHNIQUE: AP portable at 0529 COMMENT: The inspiration is suboptimal. There is subsegmental atelectasis in both lung bases. There is a tracheostomy tube. There is a right-sided PICC line with its tip in the superior vena cava. There is an NG tube which passes below the diaphragm. Compared to 01/27/2019 the lung bases are slightly clearer. IMPRESSION: Improved bibasilar atelectasis. Electronically signed by Simone Phillips 01/28/2019 7:06 AM
[2019-01-28] MEDS: MUCOMYST 20% INH SCH ×2 (07:52→19:20)
[2019-01-28] MEDS: INVANZ 1 GM/NS 1 GM/50 ML IVPB IV SCH (08:17)
--- NOTE | 2019-01-28 08:48 | PROGRESS NOTE ---
DATE: 01/28/2019 SUBJECTIVE: Patient is lying in bed. He is following commands consistently. At this moment he is getting a trach trial, and he seems to be tolerating this for now. Vital signs are stable. At some point, we will probably need to place a PEG tube. OBJECTIVE: Vital Signs: Temperature 97.6 degrees, pulse 106, respiratory rate 29, blood pressure 121/83, oxygen saturation 94% on trach trial. HEENT: Head normocephalic. No trauma. PERRLA. Neck: Supple no JVD. No masses. Central trachea. Chest: Coarse breath sounds bilaterally with crepitus and rhonchi mostly at the bases. Abdomen: Soft, nontender, nondistended. No hepatosplenomegaly. Extremities: Upper extremity 2+ edema. No lower extremity edema. No cyanosis. Neurologic: Patient is on the trach trial. He is opening his eyes spontaneously and moving his head. He has left-sided weakness. He is able to move his right side around 2/5. LABORATORY: Sodium 140, potassium 4.1, chloride 106, bicarbonate 20, BUN 23, creatinine 0.5, glucose 141, calcium 8.2, AST 47, ALT 55, alkaline phosphatase 87, albumin 2.4. ASSESSMENT AND PLAN: 1. 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 For now we will continue with same management. LFTs are elevated, so I will hold for now statin. 2. Acute rhabdomyolysis and acute kidney injury resolved. 3. Hypernatremia resolved. 4. Pneumonia. Continue antibiotics directed by Dr. Chamberlain. 5. Fever. No fever for the past 24 hours. 6. Bacteremia secondary to Staphylococcus hominis. Continue antibiotics per Infectious Disease Department. 7. Transaminitis stable. 8. Acute kidney injury resolved. 9. Hyperkalemia resolved. 10. Acute hypoxemic respiratory failure, status post tracheostomy placement. This patient was extubated on 01/25/2019 and reintubated the same day because he was not able to clear his secretions, 2 days ago a tracheostomy was placed. At this moment he is getting a trach trial. 11. Sepsis. Continue with same management. 12. Multiple pressure wounds, aware. 13. Thrombocytopenia resolved. 14. Severe protein calorie malnutrition. Continue with feeding tube. 15. Gastrointestinal prophylaxis with Protonix. CRITICAL CARE TIME: 30 minutes. cc: Dru Marroquin MD
[2019-01-28] MEDS: ASPIRIN PO SCH (09:27)
--- NOTE | 2019-01-28 10:04 | INFECTIOUS DISEASE PROGRESS NO ---
DATE: 01/28/2019 PRESENT ILLNESS: The patient has an extended spectrum beta lactamase producing Escherichia coli pneumonia. He also has a Staphylococcus hominis bacteremia. MEDICATIONS: Today I discontinued cefepime and placed the patient on ertapenem for his pneumonia. This is day 7 of treatment with vancomycin for the patient's bacteremia. Day 1 is the first day that the patient's repeated blood cultures were sterile. PHYSICAL EXAMINATION: Vital Signs: Temperature is 98.8 degrees, pulse 99, respirations 32, blood pressure 123/70. General: This is an ill-appearing middle-aged male. He is lying in bed. He appears to be in no acute distress. HEENT: It appeared he could hear my spoken words. I was not sure as to how good his vision is. I did not notice any white patches in his mouth. The patient has an NG tube down through which he is getting tube feeding. Neck: The patient has a tracheostomy in place. There is no erythema or purulence at the site. Lungs: Clear to auscultation. Cardiovascular: Heart rate is regular. Abdomen: Soft and nontender. Extremities: The patient has a PICC in the right arm. The site is not erythematous or purulent. Neurologic: The patient is awake. Today he appeared to have a left hemiparalysis. When I asked him to move his arms and legs, he did on the right side but not on the left side. LAB AND X-RAY: CBC today shows a white count of 13,340, hemoglobin 10.6, and platelet count 182,000. Blood gases show a pH 7.51, a PO2 of 75 and a pCO2 of 27. Creatinine is 0.5. GFR is greater than 60. ALT is 55. Sputum grew an extended spectrum beta lactamase producing Escherichia coli. ASSESSMENT AND PLAN: For the patient's pneumonia, as mentioned above, I have started ertapenem and for the patient's bacteremia, he has been receiving vancomycin. I plan to continue both antibiotics and for each of the antibiotics I plan to treat for 14 days with the antibiotic. COMORBIDITIES: The patient had a cerebrovascular accident. He has a tracheostomy placed 2 days ago. The patient uses electronic cigarettes. cc: Mansoor Chamberlain MD
[2019-01-28] MEDS: MORPHINE IV PRN ×2 (13:51→15:47)
[2019-01-28] MEDS: LOVENOX SUBQ SCH (20:18)
[2019-01-29] MEDS: DUONEB (A & A) INH SCH ×6 (03:22→23:26)
[2019-01-29] MEDS: CLINIMIX E 4.25%-5% SOLUTION 1,000 ML IV SCH ×2 (03:50→14:40)
[2019-01-29 04:37] LABS: ALLEN TEST YES; BE 0.1 mmoll (-3.0-3.0); BLOOD TYPE ARTERIAL; METHB 1.6 % (0.0-1.5); O2(CT) 15.5 mL/dL (15.0-23.0); O2HB 95.8 % (95.0-99.0); PCO2(98.6) 27 mmHg (35-45); PO2(98.6) 99 mmHg (60-100); SAMPLE BLOOD; SAO2 98.7 % (95.0-100.0); SRATE 12 BPM; THB 11.4 g/dL (11.5-17.4); TVOL 600 mL; pH(98.6) 7.52 (7.35-7.45)
[2019-01-29 04:39] LABS: MODALITY VENTILATOR
[2019-01-29] MEDS: PROTONIX IV SCH (06:04)
[2019-01-29 06:32] LABS: BASO# 0.08 X1000 (0.0-0.2); BASO% 0.5 % (0.0-0.8); EOS# 0.25 X1000 (0.0-0.7); EOS% 1.6 % (0.0-10.0); HEMATOCRIT 33.4 % (42.0-52.0); HEMOGLOBIN 10.6 g/dL (14.0-18.0); IMM GRAN# 1.45 X1000 (0.0-0.04); IMM GRAN% 9.2 % (0.0-0.5); LYMPH% 13.9 % (20.5-51.1); MCH 28.6 PG (27-31); MCHC 31.7 g/dL (33-37); MONO# 1.23 X1000 (0.11-0.59); MONO% 7.8 % (1.7-9.3); MPV 11.8 FL (7.4-10.4); NEUT# 10.59 X1000 (1.4-6.5); PLT 271 X1000 (130-400); RBC 3.71 XMIL (4.7-6.1)
--- NOTE | 2019-01-29 06:42 | Diag Imaging Result Doc PS360 ---
EXAM: CHEST-PORTABLE HISTORY: respiratory failure TECHNIQUE: Chest single view COMPARISON: 01/28/2019 FINDINGS: The lungs are well expanded. No change in the tracheostomy tube, nasogastric tube, or right-sided PICC line. No cardiomegaly. There are infiltrates or atelectasis in the left lung base. The pleural effusions identified. IMPRESSION: Worsening atelectasis or infiltrates in the left base Electronically signed by Sukhjinder aVldes 01/29/2019 6:39 AM
[2019-01-29 06:52] LABS: AGAP 15; ALB/GLOB RATIO 0.6; ALBUMIN 2.4 g/dL (3.5-5.0); ALKALINE PHOSPHATASE 87 U/L (32-122); BUN 26 mg/dL (8-22); CALCIUM 8.3 mg/dL (8.8-10.2); CHLORIDE 104 mmol/L (98-107); COSMO 282; CREATININE 0.4 mg/dL (0.7-1.2); ESTIMATED GFR > 60; GLUCOSE 132 mg/dL (70-104); GOT 58 U/L (10-34); GPT 77 U/L (10-44); POTASSIUM 4.3 mmol/L (3.5-5.1); SODIUM 138 mmol/L (136-145); TCO2 19 mmol/L (25-35); TOTAL PROTEIN 6.7 g/dL (6.3-8.3)
[2019-01-29 07:18] LABS: LYMPHS 16 % (21-51); MONO 4 % (1-9); SEGS 70 % (42-75)
[2019-01-29] MEDS: ASPIRIN PO SCH (08:10)
--- NOTE | 2019-01-29 08:10 | PROGRESS NOTE ---
DATE: 01/29/2019 SUBJECTIVE: This patient is lying in bed. He is on mechanical ventilation and sedation at this moment. We are working on his trach trial, and he seems to be tolerating that. Vital signs are stable. We will continue with the same management. OBJECTIVE: Vital Signs: Temperature 99 degrees, pulse 93, respiratory rate 19, blood pressure 123/81, oxygen saturation 97% on mechanical ventilation. HEENT: Head normocephalic, no trauma. PERRLA. Neck: Supple. No JVD. He has a tracheostomy in place. No masses. Central trachea. Chest: Coarse breath sounds bilaterally with some crepitus and rhonchi at the bases. Abdomen: Soft, nontender, nondistended. No hepatosplenomegaly. Extremities: 2+ upper extremity edema. No lower extremity edema. No clubbing. No cyanosis. Neurological examination: The patient is on mechanical ventilation and sedated. LABORATORY: WBC 15.8, hemoglobin 10.6, hematocrit 33.4, platelets 271. Sodium 138, potassium 4.3, chloride 104, bicarbonate 19. BUN 26, creatinine 0.6, glucose 132, calcium 8.3. AST 58, ALT 77, alkaline phosphatase 87, albumin 2.4. ASSESSMENT AND PLAN: 1. 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 Continue with the same management. Neurology Department on board. Liver function tests are still elevated, so I will hold for now statins. 2. Acute rhabdomyolysis with acute kidney injury, resolved. 3. Hypernatremia, resolved. 4. Pneumonia. Continue with antibiotics directed by Dr. Chamberlain. 5. Fever. No fever for the past 48 hours. 6. Bacteremia secondary to Staphylococcus hominis. Continue with antibiotics per Infectious Disease Department. 7. Transaminitis, stable. 8. Acute kidney injury, resolved. 9. Hyperkalemia, resolved. 10. Acute hypoxemic respiratory failure, status post tracheostomy placement. This patient was extubated on 01/25/2019 and reintubated the same day because he was not able to clear his secretions. Three days ago, a tracheostomy was placed. At this moment we are working on his trach trial. It looks like he did good yesterday. He is back on mechanical ventilation. 11. Sepsis. Continue with same management. 12. Multiple pressure wounds, aware. 13. Thrombocytopenia, resolved. 14. Severe protein calorie malnutrition. Continue with feeding tube. 15. Gastrointestinal prophylaxis with Protonix. CRITICAL CARE TIME: 30 minutes. cc: Dru Marroquin MD
[2019-01-29] MEDS: INVANZ 1 GM/NS 1 GM/50 ML IVPB IV SCH (08:11)
[2019-01-29] MEDS: MUCOMYST 20% INH SCH ×2 (08:15→19:31)
[2019-01-29] MEDS: LOVENOX SUBQ SCH (20:42)
[2019-01-30] MEDS: DUONEB (A & A) INH SCH ×6 (03:19→22:58)
[2019-01-30] MEDS: CLINIMIX E 4.25%-5% SOLUTION 1,000 ML IV SCH ×3 (03:28→20:01)
[2019-01-30 04:18] LABS: ALLEN TEST YES; BE -0.6 mmoll (-3.0-3.0); BLOOD TYPE ARTERIAL; HCO3-(ACT) 24.4 mmoll (20.0-26.0); METHB 1.3 % (0.0-1.5); O2(CT) 15.3 mL/dL (15.0-23.0); O2HB 96.1 % (95.0-99.0); PCO2(98.6) 27 mmHg (35-45); PO2(98.6) 97 mmHg (60-100); SAMPLE BLOOD; SAO2 98.7 % (95.0-100.0); SRATE 12 BPM; THB 11.2 g/dL (11.5-17.4); TVOL 600 mL; pH(98.6) 7.51 (7.35-7.45)
[2019-01-30 04:19] LABS: MODALITY VENTILATOR
[2019-01-30] MEDS: PROTONIX IV SCH (06:18)
[2019-01-30 06:39] LABS: BASO# 0.11 X1000 (0.0-0.2); BASO% 0.7 % (0.0-0.8); EOS# 0.22 X1000 (0.0-0.7); EOS% 1.4 % (0.0-10.0); HEMATOCRIT 32.3 % (42.0-52.0); HEMOGLOBIN 10.6 g/dL (14.0-18.0); IMM GRAN# 1.14 X1000 (0.0-0.04); IMM GRAN% 7.3 % (0.0-0.5); MCH 29.4 PG (27-31); MCHC 32.8 g/dL (33-37); MCV 89.5 FL (81-99); MONO% 7.7 % (1.7-9.3); MPV 11.5 FL (7.4-10.4); NEUT% 68.9 % (42.2-75.2); PLT 297 X1000 (130-400); RBC 3.61 XMIL (4.7-6.1); RDW 12.7 % (11.5-14.5); WBC 15.67 X1000 (4.8-10.8)
[2019-01-30 07:01] LABS: AGAP 15; ALB/GLOB RATIO 0.6; ALBUMIN 2.4 g/dL (3.5-5.0); ALKALINE PHOSPHATASE 90 U/L (32-122); BUN 24 mg/dL (8-22); CALCIUM 8.2 mg/dL (8.8-10.2); CHLORIDE 102 mmol/L (98-107); COSMO 278; CREATININE 0.4 mg/dL (0.7-1.2); ESTIMATED GFR > 60; GLUCOSE 128 mg/dL (70-104); GOT 70 U/L (10-34); GPT 102 U/L (10-44); POTASSIUM 3.8 mmol/L (3.5-5.1); SODIUM 136 mmol/L (136-145); TCO2 19 mmol/L (25-35); TOTAL BILIRUBIN 0.31 mg/dL (0.20-1.00); TOTAL PROTEIN 6.6 g/dL (6.3-8.3)
[2019-01-30] MEDS: INVANZ 1 GM/NS 1 GM/50 ML IVPB IV SCH (07:59)
[2019-01-30] MEDS: MUCOMYST 20% INH SCH ×2 (08:15→19:41)
--- NOTE | 2019-01-30 08:39 | PROGRESS NOTE ---
DATE: 01/30/2019 SUBJECTIVE: The patient is lying in bed. He is still on mechanical ventilation. He is not sedated. We are working on his trach trial. He seems to be tolerating that. Vital signs are stable. He is following commands. OBJECTIVE: Vital Signs: Temperature 99.4 degrees, pulse 95, respiratory rate 26, blood pressure 129/81, oxygen saturation 98 on mechanical ventilation. HEENT: Head normocephalic. No trauma. PERRLA. Neck: Supple. No JVD. No masses. Central trachea. Tracheostomy in place. Chest: Coarse breath sounds bilaterally with some crepitus and rhonchi at the bases. Abdomen: Soft, nontender, nondistended. No hepatosplenomegaly. Extremities: There is 2+ upper extremity edema. No lower extremity edema. No clubbing. No cyanosis. Neurological Examination: The patient is on mechanical ventilation. He is not sedated. He is following commands. Laboratory: WBC 15.6, hemoglobin 10.6, hematocrit 32.3, platelets 297,000. Sodium 136, potassium 3.8, chloride 102, bicarbonate 19, BUN 24, creatinine 0.4, glucose 128, calcium 8.2. AST 70, ALT 102, alkaline phosphatase 90, albumin 2.4. ASSESSMENT AND PLAN: 1. 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 Continue with the same management. Neurology department on board. Liver function tests are still elevated so I will hold, for now, statin. 2. Acute rhabdomyolysis with acute kidney injury, resolved. 3. Hypernatremia, resolved. 4. Pneumonia. Continue with antibiotics directed by Dr. Chamberlain. 5. Fever, resolved. 6. Bacteremia secondary to Staphylococcus hominis. Continue with antibiotics per infectious disease department. 7. Transaminitis, stable. 8. Acute kidney injury, resolved. 9. Hyperkalemia, resolved. 10. Acute hypoxemic respiratory failure, status post tracheostomy placement. He was extubated on 01/25/2019 and reintubated the same day because he was not able to clear his secretions. Four days ago, a tracheostomy had been placed. At this moment, we are working on his trach trial. It looks like he has been stable and now back on mechanical ventilation. 11. Sepsis. Continue with the same management. 12. Multiple pressure ulcers. Aware. 13. Thrombocytopenia, resolved. 14. Severe protein calorie malnutrition. Continue with feeding tube. 15. Gastrointestinal prophylaxis with Protonix. 16. Overall, since he seems to be stable but he is still in a critical condition, at some point, probably we need to get a percutaneous endoscopic gastrostomy tube placed. CRITICAL CARE TIME: 30 minutes. cc: Dru Marroquin MD
--- NOTE | 2019-01-30 08:53 | Diag Imaging Result Doc PS360 ---
EXAM: CHEST-PORTABLE - 01/30/2019 HISTORY: respiratory failure TECHNIQUE: Portable chest one view COMPARISON: 01/29/2019 FINDINGS: Tracheostomy tube, nasogastric tube, and PICC remain in place. Heart size appears within normal limits. There is mild prominence of central vascular markings. There is bilateral perihilar subsegmental atelectasis. There is no dense consolidation, substantial pleural effusion, or pneumothorax identified. IMPRESSION: Possible mild central vascular congestion. Perihilar subsegmental atelectasis. No discrete pneumonia. Electronically signed by Toby Raman 01/30/2019 8:51 AM
[2019-01-30] MEDS: ASPIRIN PO SCH (09:06)
[2019-01-30] MEDS ORDERED: VANCOMYCIN IV PER PHARMACY MISC SCH (09:15)
[2019-01-30] MEDS ORDERED: VANCOMYCIN 2,000 MG in NS 500 ML IV ONE (10:00)
--- NOTE | 2019-01-30 10:12 | INFECTIOUS DISEASE PROGRESS NO ---
DATE: 01/30/2019 PRESENT ILLNESS: The patient has an extended spectrum beta lactamase producing E. coli pneumonia. The patient also has a Staphylococcal hominis bacteremia. MEDICATIONS: The patient has been on ertapenem now for 2 days to treat the pneumonia. The patient had 7 days of treatment with vancomycin for his bacteremia and the vancomycin was discontinued on January 28, and I am restarting it today, January 30. PHYSICAL EXAMINATION: Vital Signs: Temperature is 98.9 degrees, pulse 91, respirations 20, blood pressure 134/80. General: This is an ill-appearing, middle-aged male. He is lying in bed. He is in no acute distress. Head, Eyes, Ears, Nose, and Throat: It appeared to me that he could hear my spoken words but he did not follow any requests I made of him such as moving his extremities or opening his mouth. Neck: There is no stiffness. The patient does have a tracheostomy in place. Lungs: Clear to auscultation. Cardiovascular: Heart rate is regular. Abdomen: Soft and nontender. Neurologic: The patient is awake. He did not follow any requests to move his extremities or open his mouth. Integument: No rash noted. LAB AND X-RAY: Chest x-ray showed no pneumonia. The creatinine was 0.4. GFR is greater than 60. Blood gases show a pH of 7.51, a PO2 of 97, and pCO2 of 27. The patient's CBC shows a white count of 15,607, hemoglobin 10.6, and platelet count 297,000. ASSESSMENT AND PLAN: I think the patient has an extended spectrum beta lactamase producing Escherichia coli pneumonia. However, the radiologist read the report as not showing pneumonia. I have gone ahead and ordered a procalcitonin to see if it looks like the patient does or does not have pneumonia. As regarding the patient's staphylococcus bacteremia, I have restarted vancomycin. He has had 7 days of treatment and will require 7 more days. COMORBIDITIES: The patient had a cerebrovascular accident. He has had a tracheostomy placed 4 days ago. The patient uses electronic cigarettes. cc: Mansoor Chamberlain MD
[2019-01-30] MEDS: MORPHINE IV PRN ×3 (13:55→18:33)
[2019-01-30] MEDS: LOVENOX SUBQ SCH (19:59)
[2019-01-30] MEDS: VANCOMYCIN 1,650 MG in NS 250 ML IV SCH (22:48)
[2019-01-31] MEDS: DUONEB (A & A) INH SCH ×6 (03:24→23:09)
[2019-01-31 03:31] LABS: ALLEN TEST YES; BE -0.3 mmoll (-3.0-3.0); BLOOD TYPE ARTERIAL; HCO3-(ACT) 24.6 mmoll (20.0-26.0); O2(CT) 17.4 mL/dL (15.0-23.0); O2HB 94.1 % (95.0-99.0); PCO2(98.6) 26 mmHg (35-45); PO2(98.6) 70 mmHg (60-100); SAMPLE BLOOD; SAO2 96.7 % (95.0-100.0); THB 13.1 g/dL (11.5-17.4); pH(98.6) 7.52 (7.35-7.45)
[2019-01-31 03:32] LABS: MODALITY COOL AEROSOL
[2019-01-31] MEDS: CLINIMIX E 4.25%-5% SOLUTION 1,000 ML IV SCH ×2 (03:47→12:23)
[2019-01-31] MEDS: MORPHINE IV PRN ×2 (04:24→12:24)
[2019-01-31] MEDS: PROTONIX IV SCH (06:05)
--- NOTE | 2019-01-31 06:13 | Diag Imaging Result Doc PS360 ---
EXAM: CHEST-PORTABLE HISTORY: respiratory failure TECHNIQUE: Single view COMPARISON: 01/30/2019 FINDINGS: No change in the tracheostomy tube or nasogastric tube. The lungs are well expanded. No cardiomegaly. No pulmonary edema. No consolidation or pleural effusions identified. IMPRESSION: Mild interval improvement Electronically signed by Sukhjinder Valdes 01/31/2019 6:11 AM
[2019-01-31 06:54] LABS: AGAP 16; ALB/GLOB RATIO 0.5; ALBUMIN 2.5 g/dL (3.5-5.0); ALKALINE PHOSPHATASE 101 U/L (32-122); BUN 25 mg/dL (8-22); CALCIUM 8.7 mg/dL (8.8-10.2); CHLORIDE 103 mmol/L (98-107); COSMO 277; CREATININE 0.4 mg/dL (0.7-1.2); ESTIMATED GFR > 60; GLUCOSE 113 mg/dL (70-104); GOT 83 U/L (10-34); GPT 137 U/L (10-44); POTASSIUM 4.4 mmol/L (3.5-5.1); SODIUM 136 mmol/L (136-145); TCO2 17 mmol/L (25-35); TOTAL BILIRUBIN 0.37 mg/dL (0.20-1.00); TOTAL PROTEIN 7.1 g/dL (6.3-8.3)
[2019-01-31 07:02] LABS: BASO# 0.09 X1000 (0.0-0.2); BASO% 0.6 % (0.0-0.8); EOS% 6.8 % (0.0-10.0); HEMATOCRIT 36.5 % (42.0-52.0); HEMOGLOBIN 11.5 g/dL (14.0-18.0); IMM GRAN% 6.8 % (0.0-0.5); LYMPH% 11.5 % (20.5-51.1); MCH 28.4 PG (27-31); MCHC 31.5 g/dL (33-37); MCV 90.1 FL (81-99); MONO# 1.06 X1000 (0.11-0.59); MONO% 7.2 % (1.7-9.3); MPV 11.9 FL (7.4-10.4); NEUT# 9.91 X1000 (1.4-6.5); NEUT% 67.1 % (42.2-75.2); PLT 244 X1000 (130-400); RBC 4.05 XMIL (4.7-6.1); RDW 12.8 % (11.5-14.5); WBC 14.76 X1000 (4.8-10.8)
[2019-01-31] MEDS ORDERED: NS 1,000 ML IV SCH (07:15)
[2019-01-31 07:24] LABS: EOS 7 % (1-10); LYMPHS 13 % (21-51); MONO 8 % (1-9); SEGS 72 % (42-75)
[2019-01-31] MEDS: MUCOMYST 20% INH SCH ×2 (07:41→19:32)
--- NOTE | 2019-01-31 08:04 | INFECTIOUS DISEASE PROGRESS NO ---
DATE: 01/31/2019 PRESENT ILLNESS: The patient had an extended spectrum beta lactamase producing E coli pneumonia. His latest chest x-ray shows clear lungs, and therefore, the pneumonia appears to have been treated successfully. The patient also has a Staph hominis bacteremia. He has received 7 days of treatment and the vancomycin was stopped. I restarted the vancomycin yesterday and the patient now has had a total of 8 days of treatment with vancomycin for the patient's bacteremia. MEDICATION: The patient is receiving ertapenem and vancomycin. PHYSICAL EXAMINATION: Vital Signs: Temperature is 99 degrees, pulse 114, respirations 26, blood pressure 125/91. General: This is an ill-appearing middle-aged male. He is in no acute distress. Head/eyes/ears/nose/throat: He appeared to be able to hear my spoken words and see near objects. There was no drainage coming from his nose or ears. Neck: The patient has a tracheostomy in place. Lungs: There were bilateral rhonchi. Cardiovascular: Heart rate is regular. Abdomen: Soft and nontender. Neurologic: The patient is awake. He did follow my request to move his right arm and leg, but he did not move his left arm and leg when I requested him to do to do it. Integument: No rash. LAB AND X-RAY: [place] [address], hemoglobin 11.6, platelet count 244,000. Blood gases show a pH of 7.52, a PO2 of 70, pCO2 of 26. Creatinine is 0.4, GFR is greater than 60. Chest x-ray shows clear lung arrington. ASSESSMENT AND PLAN: The patient has a bacteremia. I plan on continuing vancomycin. This is his 8th day of treatment and he will require 6 more days to complete a 14 day treatment course. The patient's pneumonia appears to have cleared. Procalcitonin has been ordered, the results of which are still pending. The patient has been now on ertapenem for 3 days and the latest x-ray shows clear lung arrington, but I am still concerned that there could be some residual pneumonia that is not showing up on chest x-ray. Therefore I am going to continue with ertapenem pending the results of the procalcitonin level. COMORBIDITIES: The patient had a CVA. He has a tracheostomy in place. He had a history of using electronic cigarettes. cc: Mansoor Chamberlain MD MTDD
--- NOTE | 2019-01-31 08:33 | PROGRESS NOTE ---
DATE: 01/31/2019 SUBJECTIVE: Patient is lying in bed. No changes compared with yesterday. He is tachycardic and tachypneic. We have been doing the trach trial. I will wait for Pulmonary department's recommendations. OBJECTIVE: Vital Signs: Temperature 99 degrees, pulse 105, respiratory rate 26, blood pressure 125/91, oxygen saturation 93 on mechanical ventilation. HEENT: Head normocephalic. No trauma. PERRLA. Neck: Supple. No JVD. No masses. Central trachea. Tracheostomy in place. Chest: Coarse breath sounds bilaterally with some crepitus and rhonchi at the bases. Abdomen: Soft, nontender, nondistended. No hepatosplenomegaly. Extremities: 2+ upper extremity edema. No lower extremity edema. No clubbing, no cyanosis. Neurological: This patient is on mechanical ventilation. He is not sedated. He is following commands. LABORATORY: WBC 14.7, hemoglobin 11.5, hematocrit 36.5, platelets 244,000. Sodium 136, potassium 4.4, chloride 103, bicarbonate 17, BUN 25, creatinine 0.4, glucose 113, calcium 8.7, AST 83, ALT 137, alkaline phosphatase 101. ASSESSMENT AND PLAN: 1. 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 Continue with same management for now. Liver function tests are elevated, so I will hold for now statin. Neurology department on board. 2. Acute rhabdomyolysis with acute kidney injury, resolved. 3. Hypernatremia, resolved. 4. Pneumonia due to ESBL Escherichia coli. He has been placed on ertapenem, Infectious disease department following this patient. 5. Bacteremia due to Staphylococcus hominis. This culture is from 01/17/2019. We have 2 more blood cultures from 01/21/2019 and from 01/23/2019, and they both are negative. 6. Transaminitis. The LFTs are going up a little bit. We will continue with same management. 7. Fever, resolved. 8. Hyperkalemia, resolved. 9. Acute hypoxemic respiratory failure, status post tracheostomy placement. He was extubated on 01/25/2019 and re-intubated the same day because he was not able to clear his secretions. On 01/26/2019, we placed a tracheostomy successfully. We will continue monitoring this patient closely. He is on mechanical ventilation right now, but we have been doing trach trials. 10. Sepsis. Continue with same management. 11. Multiple pressure ulcers, aware. 12. Thrombocytopenia, resolved. 13. Severe protein calorie malnutrition. Continue feeding tube. 14. Gastrointestinal prophylaxis with Protonix. CRITICAL CARE TIME: 30 minutes. cc: Dru Marroquin MD
[2019-01-31] MEDS: INVANZ 1 GM/NS 1 GM/50 ML IVPB IV SCH (08:45)
[2019-01-31] MEDS: ASPIRIN PO SCH (09:28)
[2019-01-31] MEDS: VANCOMYCIN 1,650 MG in NS 250 ML IV SCH ×2 (11:45→22:11)
--- NOTE | 2019-01-31 12:53 | PROGRESS NOTE ---
DATE: 01/31/2019 SUBJECTIVE: The patient has had tracheostomy placed since I last saw him. He has had tube feedings. He had vomiting episode this morning. He is afebrile. Blood pressure 122/79, pulse 118. Mr. Jose is supine in bed. He has a tracheostomy. He is awake and alert. He is attentive he follows simple commands consistently, thumbs up, 2 fingers. He attempts to communicate talking with his lips, but I cannot understand what he is saying. His pupils are equal, round, and reactive to bright light. He continues to have a right gaze preference, that seemed to cross the midline slightly today when attending to me on his left side. His left upper extremity is flaccid. I did not see much movement of the left lower extremity. Plantar response is extensor left, flexor right. LABS: Reviewed in the chart. AST 83, ALT 137, blood sugars mid 100s. ASSESSMENT AND PLAN: Recent large nondominant hemisphere ischemic stroke. He continues awake, alert, and following commands briskly. I would continue monitoring clinically. If there is any concern for neurologic deterioration would repeat head CT. Continue treating his underlying medical conditions. He will need PT and OT. Aspirin and statin once able. cc: Jessica Sauceda MD
[2019-01-31] MEDS: LOVENOX SUBQ SCH (20:26)
--- NOTE | 2019-01-31 21:59 | PULMONOLOGY PROGRESS NOTE ---
DATE: 01/31/2019 SUBJECTIVE: The patient moves his right upper and lower extremities. He will turn toward the practitioner when his name is called. He does have copious amounts of secretions in his tracheostomy tube. This was deflated, and he had copious amounts of secretions from the back of his throat suctioned. OBJECTIVE: Vital Signs: The patient has been afebrile for the last 24 hours. Blood pressure 121/78, heart rate 115, respiratory rate 23, oxygen saturation 97%. HEENT: Pupils are equal and reactive. Oropharynx appears clear. Neck: Supple. Chest: Reveals coarse rhonchi bilaterally. Cardiac: S1, S2. Abdomen: Soft with positive bowel sounds. Extremities: Without edema. LABORATORIES: Chest x-ray reveals mild increased markings in the lung bases medially. White blood count 14.7, hemoglobin 11.5, platelet count 244,000. Sodium 136, potassium 4.4, chloride 103, bicarbonate 17, BUN 25, creatinine 0.4. Arterial blood gas with pH 7.52, pCO2 of 26, PO2 of 70. IMPRESSION: A 58-year-old with: 1. Acute stroke. 2. Aspiration pneumonia. 3. Tracheostomy placement. The patient failed tracheostomy earlier and required re-initiation of mechanical ventilation. 4. Acute hypoxemic respiratory failure. PLAN: 1. Hold tube feeds with emesis this morning. We will restart when residuals have significantly decreased. 2. Place back on pressure support mode of ventilation. 3. Continue DVT prophylaxis. 4. Re-initiate trach trials when he has recovered. TIME SPENT: Critical care management 30+ minutes. cc: Stephen Rodríguez MD
[2019-02-01] MEDS: MORPHINE IV PRN ×3 (00:03→18:46)
[2019-02-01] MEDS: CLINIMIX E 4.25%-5% SOLUTION 1,000 ML IV SCH ×2 (02:56→13:12)
[2019-02-01] MEDS: OFIRMEV 1000 MG/ISOTONIC SOLN 1,000 MG/100 ML BOTTLE IV PRN (03:42)
[2019-02-01] MEDS: DUONEB (A & A) INH SCH ×6 (03:44→23:05)
[2019-02-01 04:36] LABS: ALLEN TEST YES; BE -0.5 mmoll (-3.0-3.0); BLOOD TYPE ARTERIAL; HCO3-(ACT) 24.5 mmoll (20.0-26.0); O2(CT) 16.8 mL/dL (15.0-23.0); O2HB 96.9 % (95.0-99.0); PCO2(98.6) 26 mmHg (35-45); PO2(98.6) 104 mmHg (60-100); SAMPLE BLOOD; SAO2 99.3 % (95.0-100.0); THB 12.2 g/dL (11.5-17.4); pH(98.6) 7.52 (7.35-7.45)
[2019-02-01 04:39] LABS: MODALITY VENTILATOR
[2019-02-01 05:17] LABS: BASO# 0.06 X1000 (0.0-0.2); BASO% 0.4 % (0.0-0.8); EOS# 0.18 X1000 (0.0-0.7); EOS% 1.2 % (0.0-10.0); HEMOGLOBIN 10.6 g/dL (14.0-18.0); IMM GRAN# 0.35 X1000 (0.0-0.04); IMM GRAN% 2.3 % (0.0-0.5); LYMPH# 1.85 X1000 (1.2-3.4); LYMPH% 12.1 % (20.5-51.1); MCH 28.9 PG (27-31); MCHC 32.1 g/dL (33-37); MCV 89.9 FL (81-99); MONO# 0.84 X1000 (0.11-0.59); MONO% 5.5 % (1.7-9.3); NEUT# 11.98 X1000 (1.4-6.5); NEUT% 78.5 % (42.2-75.2); PLT 316 X1000 (130-400); RBC 3.67 XMIL (4.7-6.1); RDW 12.7 % (11.5-14.5); WBC 15.26 X1000 (4.8-10.8)
[2019-02-01 05:58] LABS: AGAP 15; ALB/GLOB RATIO 0.6; ALBUMIN 2.5 g/dL (3.5-5.0); ALKALINE PHOSPHATASE 103 U/L (32-122); BUN 26 mg/dL (8-22); CALCIUM 8.5 mg/dL (8.8-10.2); CHLORIDE 101 mmol/L (98-107); COSMO 276; CREATININE 0.6 mg/dL (0.7-1.2); ESTIMATED GFR > 60; GLUCOSE 126 mg/dL (70-104); GOT 52 U/L (10-34); GPT 126 U/L (10-44); POTASSIUM 4.5 mmol/L (3.5-5.1); SODIUM 135 mmol/L (136-145); TCO2 19 mmol/L (25-35); TOTAL BILIRUBIN 0.47 mg/dL (0.20-1.00); TOTAL PROTEIN 6.6 g/dL (6.3-8.3)
[2019-02-01] MEDS: PROTONIX IV SCH (06:08)
--- NOTE | 2019-02-01 07:35 | Diag Imaging Result Doc PS360 ---
EXAM: CHEST-PORTABLE INDICATION: respiratory failure TECHNIQUE: One view COMPARISON: 01/31/2019 FINDINGS: Support tubes and lines are in stable positions. Minimal pulmonary venous congestion continues to improve. No new consolidation is identified. Cardiac silhouette is stable. IMPRESSION: Continued improvement of minimal pulmonary venous congestion. Electronically signed by Shakeel Chris 02/01/2019 7:33 AM
[2019-02-01] MEDS: MUCOMYST 20% INH SCH ×2 (07:59→19:56)
[2019-02-01] MEDS: ASPIRIN PO SCH (08:35)
[2019-02-01] MEDS: INVANZ 1 GM/NS 1 GM/50 ML IVPB IV SCH (08:35)
--- NOTE | 2019-02-01 11:00 | INFECTIOUS DISEASE PROGRESS NO ---
DATE: 02/01/2019 PRESENT ILLNESS: The patient has an extended spectrum beta lactamase producing E. coli pneumonia. His latest chest x-ray shows improvement in pulmonary venous congestion, which I think could be in part due to pneumonia. The patient is also on vancomycin for the Staphylococcus hominis bacteremia. MEDICATION: This is day 9 of treatment with vancomycin. The patient has 4 days of treatment with ertapenem for the pneumonia. PHYSICAL EXAMINATION: Vital Signs: Temperature is 99.6 degrees, pulse 103, respirations 14, blood pressure 123/79. General: This is an ill-appearing, middle-aged male. He is in no acute distress. Head, Eyes, Ears, Nose, and Throat: He does not seem to me when I talk to the patient. There is no drainage from the nose or the ears. The patient has a nasogastric tube in place also. Neck: The patient has a tracheostomy in place. Lungs: Clear to auscultation. Cardiovascular: Heart rate is regular. Abdomen: Soft and not tender. Extremities: The patient has a PICC in the right arm. The site is not erythematous or swollen. Neurologic: The patient's eyes are open but he did not respond to verbal stimuli today. LAB AND X-RAY: Chest x-ray shows improved pulmonary venous congestion. Sputum has grown out an extended spectrum beta lactamase producing E. coli. The blood cultures grew Staphylococcus hominis. ASSESSMENT AND PLAN: The patient has bacteremia. He will need 5 more days of vancomycin therapy to complete a 2-week treatment course. The patient is on ertapenem for presumed Escherichia coli pneumonia. The patient's procalcitonin level is still not back yet. This is day 4 of treatment with ertapenem and most likely tomorrow, if the procalcitonin does not indicate that the patient has pneumonia, I will stop the ertapenem. COMORBIDITIES: The patient had a stroke. He has a tracheostomy in place and he has a history of using electronic cigarettes. cc: MD CLAIRE Paz
[2019-02-01] MEDS: VANCOMYCIN 1,650 MG in NS 250 ML IV SCH ×2 (12:04→23:54)
--- NOTE | 2019-02-01 13:30 | PROGRESS NOTE ---
DATE: 02/01/2019 SUBJECTIVE: No major overnight events. OBJECTIVE: T-max 100.7 degrees, blood pressure currently 122/79, pulse 103. Mr. Jose is supine in bed. He has a tracheostomy. He is awake and alert. He regards. He tracks from the right side to his left side. He follows simple commands. His pupils are equal, but he resisted light shining into the eye. Gaze is conjugate. Right gaze preference persists but today he was able to cross midline and look to the left as well. He continues mostly flaccid on the left side. He is seen to move the right side spontaneously. Plantar response very briskly extensor on the left, downgoing on the right. LABS: Reviewed in the chart, white count 15. Blood glucose 113 to 128. ASSESSMENT AND PLAN: Recent large nondominant hemisphere stroke. Flaccid left hemiparesis. Continues to be clinically stable today from a neurologic standpoint. No new suggestions today. cc: Jessica Sauceda MD
--- NOTE | 2019-02-01 13:43 | PROGRESS NOTE ---
DATE: 02/01/2019 SUBJECTIVE: Mr. Jose was admitted on 01/18/2019, came in with altered mental status, slurred speech. This is a 58-year-old with a history of hypertension, apparently was found by family members of the floor being altered, having slurred speech. As per family members the last time they had contact with the patient was 2 days ago. He possibly had been on the floor for 2 days. He was brought to the emergency room, CT of the head done showed right middle coronary artery stroke. His case was discussed with Neurology in [place] who stated that he was not a tPA candidate, so he remained in [place]. He was intubated. Brain MRI on 01/18, recent infarct involving the right MCA distribution. He was extubated and then had to be re-intubated because of heavy secretions and poor clearance, and now he has a tracheostomy. He is responsive. He has left-sided paresis. OBJECTIVE: Vitals: Temperature 99.1 degrees, pulse 106, respirations 18, blood pressure 130/85. HEENT: Pupils are equal and round. Respiratory: Lungs are clear in all lung arrington. Cardiovascular: Regular rhythm and rate without murmur or S3. Abdomen: Soft. Skin: Warm and dry. URINE OUTPUT: 4000 mL. ASSESSMENT AND PLAN: 1. He has an extended-spectrum beta lactamase producing E coli pneumonia. Continue present antibiotics. Dr. Chamberlain is following. The patient is on the 9th day of treatment with vancomycin and 4 days of treatment with ertapenem. Chest x-ray from today continued improvement. Minimal pulmonary venous congestion. 2. Acute stroke. 3. Aspiration pneumonia. 4. Tracheostomy placement. The patient failed tracheostomy earlier and required re-initiation of mechanical ventilation. 5. Acute hypoxemic respiratory failure. We are holding the tube feedings in the morning and will restart when the residuals are significantly decreased back on pressure support for ventilation, and reinitiate trach trials when Dr. Rodríguez feels he is ready. The patient had a large, nondominant hemisphere ischemic stroke. Continues to be awake and alert, and follows commands. If there are any concerns for neurologic deterioration plan to repeat a CT scan. REVIEW OF ORDERS: I do not see any change. Review laboratory. cc: Michael Xavier MD
[2019-02-01] MEDS: LOVENOX SUBQ SCH (20:11)
--- NOTE | 2019-02-01 22:01 | PULMONOLOGY PROGRESS NOTE ---
DATE: 02/01/2019 SUBJECTIVE: The patient opens his eyes and moves his right side to voice. He appears to be comfortable on a pressure support of 20. OBJECTIVE: Maximum temperature in the last 24 hours 100.7 degrees, blood pressure 133/87, heart rate 92, respiratory rate 16, oxygen saturation 100%. HEENT: Pupils are equal and reactive. Oropharynx appears clear. Neck is supple. Chest reveals mild rhonchi bilaterally. Cardiac exam: S1, S2. Abdomen is soft with good bowel sounds. Extremities without edema. DIAGNOSTIC DATA: Chest x-ray reveals mild basilar infiltrates which continue to improve. LABORATORY DATA: White blood count 15.3, hemoglobin 10.6, platelet count 316,000. Sodium 135, potassium 4.5, chloride 101, bicarbonate 19, BUN 26, creatinine 0.6. Arterial blood gas reveals a pH of 7.52, pCO2 of 26, pO2 of 104. IMPRESSION: A 58-year-old with: 1. Aspiration pneumonia. 2. Acute stroke. 3. Hypoxemic respiratory failure, status post failed weaning attempt. A tracheostomy has been placed. 4. Acute hypoxemic respiratory failure. PLAN: 1. Reinitiate tube feeds as tolerated. 2. We will decrease pressure support daily as tolerated. 3. Continue DVT prophylaxis. 4. Overall prognosis is guarded. cc: Stephen Rodríguez MD
[2019-02-02] MEDS: CLINIMIX E 4.25%-5% SOLUTION 1,000 ML IV SCH ×3 (01:41→23:29)
[2019-02-02] MEDS: DUONEB (A & A) INH SCH ×6 (03:13→22:47)
[2019-02-02 04:27] LABS: ALLEN TEST YES; BE 0.8 mmoll (-3.0-3.0); BLOOD TYPE ARTERIAL; HCO3-(ACT) 25.5 mmoll (20.0-26.0); METHB 1.3 % (0.0-1.5); O2(CT) 15.2 mL/dL (15.0-23.0); O2HB 95.1 % (95.0-99.0); PCO2(98.6) 29 mmHg (35-45); PO2(98.6) 81 mmHg (60-100); SAMPLE BLOOD; SAO2 97.6 % (95.0-100.0); THB 11.3 g/dL (11.5-17.4); pH(98.6) 7.51 (7.35-7.45)
[2019-02-02 04:30] LABS: MODALITY VENTILATOR
[2019-02-02 06:16] LABS: AGAP 17; ALB/GLOB RATIO 0.6; ALBUMIN 2.6 g/dL (3.5-5.0); ALKALINE PHOSPHATASE 105 U/L (32-122); BUN 23 mg/dL (8-22); CALCIUM 7.7 mg/dL (8.8-10.2); CHLORIDE 101 mmol/L (98-107); COSMO 279; CREATININE 0.4 mg/dL (0.7-1.2); ESTIMATED GFR > 60; GLUCOSE 126 mg/dL (70-104); GOT 53 U/L (10-34); GPT 121 U/L (10-44); SODIUM 137 mmol/L (136-145); TCO2 19 mmol/L (25-35); TOTAL BILIRUBIN 0.35 mg/dL (0.20-1.00); TOTAL PROTEIN 6.9 g/dL (6.3-8.3)
[2019-02-02] MEDS: SODIUM CHLORIDE 0.9% INJ SCH (06:37)
[2019-02-02] MEDS: PROTONIX IV SCH (06:37)
[2019-02-02] MEDS: MUCOMYST 20% INH SCH ×2 (07:47→19:39)
--- NOTE | 2019-02-02 07:48 | Diag Imaging Result Doc PS360 ---
EXAM: CHEST-PORTABLE INDICATION: respiratory failure TECHNIQUE: One view COMPARISON: 02/01/2019 FINDINGS: Support tubes and lines are in stable positions. Minimal pulmonary venous congestion is unchanged. No new consolidation is identified. Cardiac silhouette is stable. IMPRESSION: Stable chest. Electronically signed by Shakeel Chris 02/02/2019 7:45 AM
[2019-02-02] MEDS: ASPIRIN PO SCH (09:22)
[2019-02-02] MEDS: INVANZ 1 GM/NS 1 GM/50 ML IVPB IV SCH (09:22)
--- NOTE | 2019-02-02 09:55 | INFECTIOUS DISEASE PROGRESS NO ---
DATE: 02/02/2019 PRESENT ILLNESS: The patient has an extended-spectrum beta lactamase-producing Escherichia coli pneumonia. Chest x-ray shows improvement in the patient's pulmonary venous congestion, which I think could be in part due to pneumonia. The patient also is receiving vancomycin for Staph hominis bacteremia. MEDICATIONS: This is day 10 of treatment with vancomycin, and day 5 of treatment with ertapenem. PHYSICAL EXAMINATION: Vital Signs: Temperature is 98 degrees, pulse 102, respirations 32, blood pressure 140/84. General: This is an ill-appearing, middle-aged male. He is in no acute distress. HEENT: There was no drainage from the nose or ears. He was able to hear what I was saying, and it also appeared that he could see near objects. The patient has a nasogastric tube in place. Neck: The patient has a tracheostomy in place. The site is not purulent or erythematous. Lungs: Clear to auscultation. Cardiovascular: Heart rate is regular. Abdomen: Soft and nontender. Extremities: The patient has a PICC in the right arm. The site is not erythematous or purulent. Neurologic: The patient is awake. He has a left hemiplegia. The patient did follow request to move his right arm and leg. IMAGING AND LABORATORY DATA: The patient's chest x-ray shows pulmonary venous congestion. CBC shows a white count of 15,260, hemoglobin 10.6, platelet count 316,000. Blood gases show a pH of 7.51, a PO2 of 81, a pCO2 of 29. The creatinine is 0.4, GFR is greater than 60. ALT is 121. Procalcitonin is 0.25, which implies that the patient could either have pneumonia or not have pneumonia. Chest x-ray shows pulmonary venous congestion. ASSESSMENT AND PLAN: The patient has bacteremia. I plan to treat his bacteremia with vancomycin for 4 more days to complete a 2-week treatment course. As regarding the patient's pulmonary condition, he does have venous congestion, but I think also there is likelihood that he has an infection with the extended-spectrum beta lactamase-producing Escherichia coli organism. For that reason, I am going to continue ertapenem for a few more days, and if the x-ray continues to clear, I will stop the ertapenem. COMORBIDITIES: The patient had a stroke. He has a tracheostomy in place. He has a history of using electronic cigarettes. cc: Mansoor Chamberlain MD
--- NOTE | 2019-02-02 10:15 | PROGRESS NOTE ---
DATE: 02/02/2019 He opens his eyes and seems to understand. Answers questions by moving his head. The tube feedings are held right now, we hold them in the morning, try and decrease his residual and still attempting to wean him off the ventilator. OBJECTIVE: Vital Signs: He remains afebrile. Temperature 97.2 degrees, pulse 100, respirations 34, blood pressure 123/78. HEENT: Pupils are equal. Lungs: Are clear in all lung [place]. Cardiovascular: Regular rate without murmur or S3. Abdomen: Is soft. Skin: Is warm and dry. Urine output is 5200 mL. Chest x-ray: Stable chest, support tubes and lines stable position. Minimal pulmonary venous congestion is unchanged. No new consolidation identified. ASSESSMENT AND PLAN: 1. Aspiration pneumonia. Has a trach, attempting to wean. He had acute stroke on presentation, hypoxemic respiratory failure, status post failed weaning attempt and tracheostomy. 2. CVA. He, I think, is neurologically is unchanged. He is waking up off sedation, seems to be aware of your presence and answering questions. 3. Nutrition. Continue NG feeding. We will have LTAC start looking at him, but we are hoping to wean him off the ventilator. He is on Clinimix 85 mL an hour. He is on Lovenox 40 mg subcutaneous daily, getting ertapenem 1 g q.24 hours, Protonix 40 mg IV q.24 hours, vancomycin 1650 mg IV q.12. REVIEW OF LABS: CBC from yesterday, white count 08635, hematocrit was 33, platelet count 316,000. Electrolytes from this morning, sodium 137, potassium 4.0, chloride 101, BUN 23, creatinine 0.4. Transaminases seem to be coming down slowly. AST is 53, ALT is 121. cc: Michael Xavier MD
[2019-02-02] MEDS: VANCOMYCIN 1,650 MG in NS 250 ML IV SCH ×2 (11:48→23:29)
[2019-02-02] MEDS: LOVENOX SUBQ SCH (19:07)
[2019-02-02] MEDS ORDERED: LASIX IV ONE (20:01)
--- NOTE | 2019-02-02 21:45 | PULMONOLOGY PROGRESS NOTE ---
DATE: 02/02/2019 SUBJECTIVE: The patient opens his eyes to voice. He has been tolerating pressure support of 15 without increased work of breathing. OBJECTIVE: Vital Signs: The patient has been afebrile for the last 24 hours. Blood pressure 143/86, heart rate 91, respiratory rate 29, oxygen saturation 98%. HEENT: Pupils are equal and reactive. Oropharynx appears clear. Neck: Is supple. Chest: Reveals prolonged expiratory phase. Cardiac exam: S1, S2. Abdomen: Is soft. Extremities: Are unchanged. LABORATORIES: Chest x-ray reveals minimal vascular congestion. White blood count not obtained today. Chemistry: Sodium 137, potassium 4.0, chloride 101, bicarbonate 19, anion gap 17, BUN 23, creatinine 0.4. Arterial blood gas, pH 7.51, pCO2 of 29, PO2 of 81. IMPRESSION: 58-year-old with 1. Aspiration pneumonia. 2. Acute stroke/cerebrovascular accident. 3. Hypoxemic respiratory failure, status post tracheostomy placement. PLAN: 1. Continue tube feeds. 2. Continue Clinimix. 3. Continue to decrease pressure support as tolerated. 4. Continue deep vein thrombosis prophylaxis. TIME SPENT IN CRITICAL CARE MANAGEMENT: 30+ minutes. cc: Stephen Rodríguez MD
[2019-02-02] MEDS: MORPHINE IV PRN (21:46)
[2019-02-03] MEDS: DUONEB (A & A) INH SCH ×6 (03:10→23:11)
[2019-02-03] MEDS: MORPHINE IV PRN ×2 (03:32→11:08)
[2019-02-03 04:31] LABS: ALLEN TEST YES; BE 1.8 mmoll (-3.0-3.0); BLOOD TYPE ARTERIAL; HCO3-(ACT) 26.3 mmoll (20.0-26.0); METHB 1.3 % (0.0-1.5); O2(CT) 18.7 mL/dL (15.0-23.0); PCO2(98.6) 29 mmHg (35-45); PO2(98.6) 102 mmHg (60-100); SAMPLE BLOOD; SAO2 98.9 % (95.0-100.0); THB 13.8 g/dL (11.5-17.4); pH(98.6) 7.52 (7.35-7.45)
[2019-02-03 04:32] LABS: MODALITY VENTILATOR
[2019-02-03] MEDS: PROTONIX IV SCH (06:06)
--- NOTE | 2019-02-03 06:50 | Diag Imaging Result Doc PS360 ---
CHEST-PORTABLE - 02/03/2019 INDICATION: respiratory failure COMPARISON: 02/02/2019 FINDINGS: Support lines and tubes are stable and in good position. Stable mild right perihilar and medial lung base infiltrate. No new infiltrates. Heart size and pulmonary vascularity is normal. No pneumothorax or pleural effusion. IMPRESSION: No change from prior. Electronically signed by Cameron Sainz 02/03/2019 6:48 AM
[2019-02-03 07:08] LABS: MAGNESIUM 2.1 mg/dL (1.5-2.7); PHOSPHORUS 4.6 mg/dL (2.7-4.5)
[2019-02-03] MEDS: INVANZ 1 GM/NS 1 GM/50 ML IVPB IV SCH (08:07)
[2019-02-03] MEDS: ASPIRIN PO SCH (08:07)
[2019-02-03] MEDS: MUCOMYST 20% INH SCH ×2 (08:25→19:06)
[2019-02-03 09:15] LABS: AGAP 16; ALB/GLOB RATIO 0.7; ALKALINE PHOSPHATASE 115 U/L (32-122); BUN 24 mg/dL (8-22); CALCIUM 8.8 mg/dL (8.8-10.2); CHLORIDE 100 mmol/L (98-107); COSMO 277; CREATININE 0.6 mg/dL (0.7-1.2); ESTIMATED GFR > 60; GLUCOSE 121 mg/dL (70-104); GOT 55 U/L (10-34); GPT 134 U/L (10-44); SODIUM 136 mmol/L (136-145); TCO2 20 mmol/L (25-35); TOTAL BILIRUBIN 0.34 mg/dL (0.20-1.00); TOTAL PROTEIN 7.5 g/dL (6.3-8.3)
[2019-02-03] MEDS: CLINIMIX E 4.25%-5% SOLUTION 1,000 ML IV SCH (11:09)
[2019-02-03] MEDS: VANCOMYCIN 1,650 MG in NS 250 ML IV SCH (11:09)
--- NOTE | 2019-02-03 14:09 | PROGRESS NOTE ---
DATE: 02/03/2019 SUBJECTIVE: Mr. Jose is awake, appears comfortable, and answers questions. He is aware of your presence. Has a trach, still on the ventilator. OBJECTIVE: Temperature 99.2 degrees, pulse 120, respirations 33, blood pressure 115/77. Pupils are equal and round. Lungs are clear in all lung arrington. Cardiovascular Examination: Regular rhythm and rate without murmur or S3. Abdomen is soft. Skin warm and dry. Urine output is a little over 8 L. Chest x-ray from this morning, no change from prior. Support lines and tubes stable, good position. Stable mid right perihilar medial lung base infiltrate. No new infiltrates. Heart size and pulmonary vascularity are normal. ASSESSMENT AND PLAN: 1. Aspiration pneumonia. 2. Acute stroke. 3. Cerebrovascular accident with left-sided hemiparesis. 4. Hypoxemic respiratory failure, status post tracheostomy placement. 5. Continue tube feedings. Continue Clinimix. Continue to try and wean. There was some talk about whether the patient would benefit from a gastrostomy tube. We will discussed with Dr. Rodríguez and the family. REVIEW OF PRESENT ORDERS: I do not see any change. Continue vancomycin and ertapenem. LABORATORY DATA: Review of lab from this morning, sodium 136, potassium 4.0, chloride 100, BUN 24, creatinine 0.6. Transaminases about the same. AST was 55, ALT 134. cc: Michael Xavier MD
[2019-02-03] MEDS: LOVENOX SUBQ SCH (20:34)
--- NOTE | 2019-02-03 22:05 | INFECTIOUS DISEASE PROGRESS NO ---
DATE: 02/03/2019 PRESENT ILLNESS: Mr. Jose has bibasilar pneumonia with an ESBL-producing Escherichia coli in his sputum. There is also a Staph hominis bacteremia. MEDICATIONS: He is on day 6 of ertapenem 1 gram IV every 24 hours. Based on his sterile blood cultures, today is day13 of treatment for his bacteremia, for which is receiving IV vancomycin per pharmacy dosing. PHYSICAL EXAMINATION: Vital Signs: Temperature is 99.2 degrees, pulse rate 117, respiratory rate 38, blood pressure 120/73. O2 saturation is 97% on a 40% FiO2 on the mechanical ventilator. General: This is a [id number], middle-aged gentleman. He is in CPAP mode, on trach trials. HEENT: There is an NG tube in place with tube feedings infusing. Oral mucous membranes are pink and moist. Conjunctivae are pink. Neck: Supple. There is a tracheostomy in place. The patient is connected to the ventilator in CPAP mode. Respiratory: Lung sounds are clear in the left upper lobe, diminished in the bases. There are some coarse rhonchi to the right upper lobe. He is tachypneic. Cardiovascular: Heart rate and rhythm are regular and fast, sinus tachycardia on the monitor. Abdomen: Soft, round and nontender. Bowel sounds are active. Integumentary: There is a PICC line in place to the right upper arm. That site is without edema, erythema, or drainage. Neurologic: There is a left hemiplegia. He is awake, alert and able to mouth words and move his right extremities. LABORATORY AND X-RAY: Today on CPAP mode at 40% FiO2, his pH was 7.52, pCO2 was 29, PO2 was 102, and HC03 was 26.3. Creatinine is 0.6, estimated GFR greater than 60. Total bilirubin is 0.34, AST 55, ALT 134, alkaline phosphatase 115. His sputum has grown Escherichia coli which is ESBL positive, and previously his blood grew Staph hominis. Chest x-ray done today shows no change from prior with right, mild perihilar and medial lung base infiltrates. ASSESSMENT AND PLAN: Mr. Jose is being treated for a Staph bacteremia. Unfortunately, he has metal in his ankles bilaterally which could have been hematogenously infected, so he will need a 6-week course of treatment. At this point, he has had 13 out of 42 days. He also has an extended-spectrum beta-lactamase producing Escherichia coli in his sputum and is being treated for pneumonia with Invanz, which we will continue at this time. The patient continues to have an elevated white blood cell count. We will check a CBC in the morning. These plans have been discussed with and recommended by Dr. Chamberlain. COMORBIDITIES: Include a previous stroke, tracheostomy and use of electronic cigarettes. Dictated by GIOVANA Medina for Mansoor Chamberlain MD cc: Mansoor Chamberlain MD [facility]
[2019-02-03] MEDS ORDERED: LASIX IV ONE (23:08)
[2019-02-04] MEDS: MORPHINE IV PRN ×2 (00:30→03:11)
[2019-02-04] MEDS: CLINIMIX E 4.25%-5% SOLUTION 1,000 ML IV SCH ×2 (00:30→14:12)
[2019-02-04] MEDS: VANCOMYCIN 1,650 MG in NS 250 ML IV SCH (00:38)
[2019-02-04] MEDS: DUONEB (A & A) INH SCH ×6 (03:17→23:28)
--- NOTE | 2019-02-04 04:25 | PULMONOLOGY PROGRESS NOTE ---
DATE: 02/04/2019 SUBJECTIVE: The patient is awake. He appears to be comfortable on mechanical ventilation. He appears to be tolerating his tube feeds. He has tolerated a decrease in pressure support. OBJECTIVE: Maximum temperature in the last 24 hours 99.8 degrees. Blood pressure 131/83, heart rate 105, respiratory rate 33, and oxygen saturation 99%. HEENT: Pupils are equal and reactive. Oropharynx appears clear. Neck: Supple. Lungs: Chest reveals occasional rhonchi bilaterally. Cardiac: Increased rate. Regular rhythm. Abdomen: Soft. Extremities: Reveal trace edema. LABORATORIES: Chest x-ray reveals stable changes at the right medial base. Arterial blood gas reveals a pH 7.52, pCO2 of 29 and PO2 of 102. No white blood count today. Sodium 136, potassium 4.0, chloride 100, bicarbonate 20, BUN 24, and creatinine 0.6. IMPRESSION: A 58-year-old with the followin. Acute stroke. 2. Aspiration pneumonia. 3. Hypoxemia with respiratory failure status post failed extubation. Tracheostomy in place. 4. Protein calorie malnutrition. PLAN: 1. Continue to decrease pressure support as tolerated. We will reinitiate trach trials tomorrow if he tolerates pressure support reduction today. 2. Continue tube feeds and Clinimix for now. Continue antibiotics for aspiration pneumonia. 3. Continue deep vein thrombosis prophylaxis. 4. Overall prognosis is guarded. TIME SPENT: Critical care management 30+ minutes. cc: Stephen Rodríguez MD
[2019-02-04 04:28] LABS: ALLEN TEST YES; BE 2.3 mmoll (-3.0-3.0); BLOOD TYPE ARTERIAL; HCO3-(ACT) 26.6 mmoll (20.0-26.0); METHB 0.9 % (0.0-1.5); O2(CT) 16.3 mL/dL (15.0-23.0); O2HB 93.2 % (95.0-99.0); PCO2(98.6) 30 mmHg (35-45); PO2(98.6) 65 mmHg (60-100); SAMPLE BLOOD; SAO2 95.7 % (95.0-100.0); THB 12.4 g/dL (11.5-17.4); pH(98.6) 7.52 (7.35-7.45)
[2019-02-04 04:29] LABS: MODALITY VENTILATOR
[2019-02-04 05:48] LABS: BASO# 0.09 X1000 (0.0-0.2); BASO% 0.7 % (0.0-0.8); EOS# 0.19 X1000 (0.0-0.7); EOS% 1.4 % (0.0-10.0); HEMATOCRIT 37.7 % (42.0-52.0); IMM GRAN# 0.32 X1000 (0.0-0.04); IMM GRAN% 2.4 % (0.0-0.5); LYMPH# 2.48 X1000 (1.2-3.4); LYMPH% 18.4 % (20.5-51.1); MCH 28.6 PG (27-31); MCHC 31.8 g/dL (33-37); MONO# 0.75 X1000 (0.11-0.59); MONO% 5.6 % (1.7-9.3); MPV 11.2 FL (7.4-10.4); NEUT# 9.63 X1000 (1.4-6.5); NEUT% 71.5 % (42.2-75.2); PLT 382 X1000 (130-400); RBC 4.19 XMIL (4.7-6.1); RDW 12.7 % (11.5-14.5); WBC 13.46 X1000 (4.8-10.8)
[2019-02-04] MEDS: SODIUM CHLORIDE 0.9% INJ SCH (06:08)
[2019-02-04] MEDS: PROTONIX IV SCH (06:08)
[2019-02-04 06:30] LABS: AGAP 18; ALB/GLOB RATIO 0.6; ALKALINE PHOSPHATASE 113 U/L (32-122); BUN 29 mg/dL (8-22); CALCIUM 8.6 mg/dL (8.8-10.2); CHLORIDE 98 mmol/L (98-107); COSMO 282; CREATININE 0.6 mg/dL (0.7-1.2); ESTIMATED GFR > 60; GLUCOSE 147 mg/dL (70-104); GOT 54 U/L (10-34); GPT 131 U/L (10-44); POTASSIUM 3.6 mmol/L (3.5-5.1); SODIUM 137 mmol/L (136-145); TCO2 21 mmol/L (25-35); TOTAL PROTEIN 7.8 g/dL (6.3-8.3)
--- NOTE | 2019-02-04 06:30 | Diag Imaging Result Doc PS360 ---
EXAM: CHEST-PORTABLE HISTORY: respiratory failure TECHNIQUE: Chest single view COMPARISON: 02/03/2019 FINDINGS: No change in the tracheostomy tube, nasogastric tube, or right subclavian portacatheter. The lungs are well expanded. No cardiomegaly. No consolidation. No pleural effusions identified. IMPRESSION: Stable chest Electronically signed by Sukhjinder Valdes 02/04/2019 6:28 AM
[2019-02-04] MEDS: INVANZ 1 GM/NS 1 GM/50 ML IVPB IV SCH (07:31)
[2019-02-04] MEDS: MUCOMYST 20% INH SCH ×2 (07:42→19:37)
[2019-02-04] MEDS: ASPIRIN PO SCH (08:00)
[2019-02-04 16:35] LABS: CHOLESTEROL 112 mg/dL (0-200); HDL 23 mg/dL (35-55); LDL 62 mg/dL; TRIGLYCERIDES 137 mg/dL (39-160); VLDL 27 mg/dL
--- NOTE | 2019-02-04 16:51 | PROGRESS NOTE ---
DATE: 02/04/2019 SUBJECTIVE: The patient is resting on bed, has trach in place. He is able to follow simple commands. OBJECTIVE: Vital signs: Temperature is 98.8 degrees, pulse 106, respiratory rate 29, blood pressure is 107/73, O2 saturation is 97%. HEENT: Atraumatic, normocephalic. Neck: Trach in place. Cardiovascular: S1, S2. Respiratory: Has evidence of good entry bilaterally. Abdomen: Soft, nontender. No masses felt. Extremities: Strength on the right upper and lower extremities both about 1-2/5. LABORATORY DATA: WBC 13.46, hematocrit is 37.7, with a platelet count of 382,000. Sodium is 137, potassium 3.6, chloride is 98, bicarb is 21, BUN is 29, creatinine is 0.6, AST 54, ALT, 131, alkaline phosphatase 113. ASSESSMENT AND PLAN: 1. Acute respiratory failure. Trach in place. The patient failed extubation. Continue trach trials per recommendation of pulmonology team. 2. Bacteremia/pneumonia. Antibiotic management per recommendation of Infectious Disease team. 3. Acute stroke. Continue aspirin, Lovenox for deep venous thrombosis prophylaxis. We will recommend physical therapy. Check lipid panel. 4. Protein calorie malnutrition. The patient is currently receiving tube feeding. Family seems open to the patient getting a percutaneous endoscopic gastrostomy tube put in place. 5. Abnormal liver function tests. We will check abdominal ultrasound and check hepatitis panel. Follow up on hepatic function tests. 6. Deep vein thrombosis prophylaxis. Lovenox. 7. Gastrointestinal prophylaxis. Proton pump inhibitor. cc: Richar Ornelas MD
[2019-02-04] MEDS ORDERED: VANCOMYCIN 1,650 MG in NS 250 ML IV SCH (18:00)
--- NOTE | 2019-02-04 19:48 | INFECTIOUS DISEASE PROGRESS NO ---
DATE: 02/04/2019 PRESENT ILLNESS: The patient has bibasilar pneumonia with an extended spectrum beta lactamase producing Escherichia coli. The patient also has a Staphylococcus hominis bacteremia. MEDICATIONS: This is day 7 of treatment with ertapenem for the pneumonia and day 14 of treatment for the bacteremia. PHYSICAL EXAMINATION: Vital Signs: Temperature is 98 degrees, pulse 103, respirations 28, blood pressure 121/74. General: This is an ill-appearing middle-aged male. He is in no acute distress. Head/eyes/ears/nose/throat: He has an NG tube in place. There is no drainage from the nose or ears. I could not get a good look into his mouth. Neck: The patient has a tracheostomy in place. Lungs: Clear to auscultation. Cardiovascular: Heart rate is regular. Abdomen: Soft and nontender. Neurologic: Today the patient is lethargic. He did not respond to verbal stimuli. Extremities: The patient has a PICC in his right arm. The site is not erythematous or purulent. LAB AND X-RAY: [place] [address], hemoglobin 12, platelet count 382,000 blood gases show a pH of 7.52, a PO2 of 65, pCO2 of 30. Creatinine 0.6, GFR is greater than 60.. ASSESSMENT AND PLAN: As regarding the patient's Staphylococcus bacteremia he has had 14 days of treatment with day 1 being the first day that the patient's blood cultures were negative. I plan on discontinuing vancomycin. As regarding the patient's pulmonary status on the latest chest x- ray, there is no infiltrate. A CT scan done earlier, did show basilar infiltrates. My plan is to continue ertapenem for approximately 3 more days to make a total of 10 days. I will also repeat the chest x-ray and if it is still clear, hopefully the white count will be coming down and I will discontinue ertapenem. COMORBIDITIES: The patient has previously had a stroke. He has used electronic cigarettes in the past and now he has a tracheostomy. cc: Mansoor Chamberlain MD
[2019-02-04] MEDS: LOVENOX SUBQ SCH (20:49)
--- NOTE | 2019-02-04 21:01 | PULMONOLOGY PROGRESS NOTE ---
DATE: 02/04/2019 SUBJECTIVE: The patient is awake and alert. He follows the examiner. He has been on minimal pressor support overnight. OBJECTIVE: Vital Signs: The patient has been afebrile for the last 24 hours. BP 115/80, heart rate 102, respiratory rate 26, oxygen saturation 96%. HEENT: Pupils are equal and reactive. Oropharynx appears clear. Neck: Supple. Chest: Occasional rhonchi bilaterally. Cardiac: S1-S2. Abdomen: Soft with positive bowel sounds. Extremities: Without edema. LABORATORY AND DIAGNOSTIC DATA: Chest x-ray is unchanged. Arterial blood gas reveals pH 7.52, pCO2 of 30, PO2 of 65. Sodium 137, potassium 3.6, chloride 98, bicarbonate 21, BUN 29, creatinine 0.6. IMPRESSION: A 58-year-old with: 1. Acute stroke. 2. Aspiration pneumonia. 3. Hypoxemic respiratory failure. 4. Status post tracheostomy placement. DISCUSSION: A 58-year-old with problems outlined above. Clinically, he has tolerated weaning of his pressor support. PLAN: 1. Initiate tracheostomy collar trials today. We will continue nocturnal ventilation to prevent overt diaphragmatic fatigue. 2. Continue tube feeds and Clinimix. Anticipate PEG tube placement. 3. Continue DVT prophylaxis. 4. Guarded prognosis. Time spent in critical care management: Greater than 30 minutes cc: Stephen Rodríguez MD MTDD
[2019-02-05] MEDS: CLINIMIX E 4.25%-5% SOLUTION 1,000 ML IV SCH ×2 (02:01→11:15)
[2019-02-05] MEDS: DUONEB (A & A) INH SCH ×6 (03:28→23:30)
[2019-02-05 04:31] LABS: ALLEN TEST YES; BE 1.9 mmoll (-3.0-3.0); BLOOD TYPE ARTERIAL; HCO3-(ACT) 26.4 mmoll (20.0-26.0); METHB 1.2 % (0.0-1.5); O2HB 95.8 % (95.0-99.0); PCO2(98.6) 29 mmHg (35-45); PO2(98.6) 90 mmHg (60-100); SAMPLE BLOOD; SAO2 98.2 % (95.0-100.0); THB 14.8 g/dL (11.5-17.4); pH(98.6) 7.52 (7.35-7.45)
[2019-02-05 04:32] LABS: MODALITY COOL AEROSOL
[2019-02-05] MEDS: PROTONIX IV SCH (06:16)
[2019-02-05 07:02] LABS: AGAP 12; ALB/GLOB RATIO 0.8; ALKALINE PHOSPHATASE 110 U/L (32-122); BUN 26 mg/dL (8-22); CALCIUM 8.5 mg/dL (8.8-10.2); CHLORIDE 98 mmol/L (98-107); COSMO 273; CREATININE 0.4 mg/dL (0.7-1.2); ESTIMATED GFR > 60; GLUCOSE 131 mg/dL (70-104); GOT 50 U/L (10-34); GPT 118 U/L (10-44); POTASSIUM 3.7 mmol/L (3.5-5.1); SODIUM 133 mmol/L (136-145); TCO2 23 mmol/L (25-35); TOTAL BILIRUBIN 0.35 mg/dL (0.20-1.00)
--- NOTE | 2019-02-05 07:10 | Diag Imaging Result Doc PS360 ---
EXAM: CHEST-PORTABLE HISTORY: respiratory failure TECHNIQUE: Chest single view COMPARISON: 02/04/2019 FINDINGS: No change in tracheostomy tube or nasogastric tube. The lungs are well expanded. No cardiomegaly. Atelectasis versus small infiltrate in the left lower lobe. IMPRESSION: Mild interval worsening Electronically signed by Sukhjinder Valdes 02/05/2019 7:08 AM
[2019-02-05] MEDS: MUCOMYST 20% INH SCH ×2 (07:27→19:33)
[2019-02-05] MEDS: INVANZ 1 GM/NS 1 GM/50 ML IVPB IV SCH (09:31)
[2019-02-05] MEDS: ASPIRIN PO SCH (09:31)
--- NOTE | 2019-02-05 09:36 | Diag Imaging Result Doc PS360 ---
EXAM: US ABDOMEN-COMPLETE HISTORY: abnormal lfts TECHNIQUE: Abdominal ultrasound COMPARISON: 01/19/2019 FINDINGS: There continues to be mild fatty infiltration of the liver. The aorta and inferior vena cava are predominantly obscured. Normal pancreatic body. The head and tail are obscured. No ascites. The gallbladder is contracted. No stones. The common bile duct measures 2 mm. Normal kidneys. There continues to be no hydronephrosis. Spleen is borderline mildly prominent. IMPRESSION: No interval change. Electronically signed by Sukhjinder Valdes 02/05/2019 9:33 AM
--- NOTE | 2019-02-05 12:57 | PROGRESS NOTE ---
DATE: 02/05/2019 SUBJECTIVE: The patient currently is sedated. He has his trach in place. PHYSICAL EXAMINATION: Vital Signs: Reviewed. He is currently afebrile. He is in no current respiratory distress. HEENT: Normocephalic. Neck: Supple. Cardiovascular: Regular rate. Chest: Decreased but equal. Abdomen: Soft. Extremities: Moves all extremities. ASSESSMENT: 1. Acute respiratory failure. Currently has a tracheostomy in place. 2. Bacterial pneumonia with bacteremia. 3. Protein calorie malnutrition. 4. History of acute stroke. 5. Hyponatremia. PLAN: We will continue to follow. His recent chest x-ray is worse. Hopefully he can continue to improve. We will continue antibiotics, breathing treatments, etc. cc: Marino Austin MD
--- NOTE | 2019-02-05 15:54 | PULMONOLOGY PROGRESS NOTE ---
DATE: 02/05/2019 SUBJECTIVE: The patient is awake and alert. He has remained on trach collar overnight. He has mild work of breathing. OBJECTIVE: HEENT: Pupils are equal and reactive. Oropharynx appears clear. Neck: Neck is supple. Chest: Chest reveals shallow breath sounds bilaterally. Cardiac: S1 and S2 with increased rate. Abdomen: Soft with positive bowel sounds. Extremities: Without edema. LABORATORIES: Chest x-ray reveals mild atelectasis at the left base. Arterial blood gas reveals pH 7.52, pCO2 of 29, PO2 of 90. Chemistry with sodium 133, potassium 3.7, chloride 98, bicarbonate 23, BUN 26, creatinine 0.4. IMPRESSION: A 58-year-old with: 1. Acute stroke. 2. Aspiration pneumonia. 3. Hypoxemic respiratory failure. 4. Status post tracheostomy placement. DISCUSSION: A 58-year-old with problems outlined above. He has been off the ventilator for approximately 24 hours, but he is developing tachypnea. PLAN: 1. We will cycle ventilator at bedtime and p.r.n. 2. Continue tube feeds. 3. We will discontinue Clinimix. 4. Prognosis is guarded. cc: Stephen Rodríguez MD
[2019-02-05] MEDS: MORPHINE IV PRN ×2 (17:29→23:34)
[2019-02-05] MEDS: LOVENOX SUBQ SCH (20:28)
[2019-02-06] MEDS: DUONEB (A & A) INH SCH ×6 (03:30→23:10)
[2019-02-06 04:27] LABS: ALLEN TEST YES; BE 1.9 mmoll (-3.0-3.0); BLOOD TYPE ARTERIAL; HCO3-(ACT) 26.4 mmoll (20.0-26.0); METHB 1.1 % (0.0-1.5); O2(CT) 21.1 mL/dL (15.0-23.0); O2HB 96.5 % (95.0-99.0); PCO2(98.6) 31 mmHg (35-45); PO2(98.6) 101 mmHg (60-100); SAMPLE BLOOD; SAO2 99.1 % (95.0-100.0); THB 15.5 g/dL (11.5-17.4)
[2019-02-06 04:29] LABS: MODALITY VENTILATOR
[2019-02-06] MEDS: PROTONIX IV SCH (06:18)
--- NOTE | 2019-02-06 07:00 | Diag Imaging Result Doc PS360 ---
EXAM: CHEST-PORTABLE 02/06/2019 HISTORY: respiratory failure TECHNIQUE: AP portable at 0520 COMMENT: Compared to 02/05/2019 there has been some clearing of the left base. Otherwise the appearance the chest has not changed significantly. IMPRESSION: Improved atelectasis left lower lobe. Electronically signed by Simone Phillips 02/06/2019 6:58 AM
[2019-02-06 07:13] LABS: AGAP 15; ALB/GLOB RATIO 0.7; ALBUMIN 3.1 g/dL (3.5-5.0); ALKALINE PHOSPHATASE 100 U/L (32-122); BUN 24 mg/dL (8-22); CALCIUM 8.4 mg/dL (8.8-10.2); CHLORIDE 100 mmol/L (98-107); COSMO 279; CREATININE 0.5 mg/dL (0.7-1.2); ESTIMATED GFR > 60; GLUCOSE 114 mg/dL (70-104); GOT 37 U/L (10-34); GPT 99 U/L (10-44); SODIUM 137 mmol/L (136-145); TCO2 22 mmol/L (25-35); TOTAL BILIRUBIN 0.36 mg/dL (0.20-1.00); TOTAL PROTEIN 7.3 g/dL (6.3-8.3)
[2019-02-06] MEDS: MUCOMYST 20% INH SCH ×2 (08:06→19:46)
[2019-02-06] MEDS: ASPIRIN PO SCH (08:27)
[2019-02-06] MEDS: INVANZ 1 GM/NS 1 GM/50 ML IVPB IV SCH (08:27)
[2019-02-06 08:38] LABS: HEPATITIS PROFILE ACUTE SEE COMMENTS
--- NOTE | 2019-02-06 14:53 | PROGRESS NOTE ---
DATE: 02/06/2019 SUBJECTIVE: Mr. Jose is awake and alert. He is on a trach but he is off the ventilator, getting supplementary O2 and humidified air. OBJECTIVE: He remains afebrile, temperature 98.1 degrees, pulse 99, respirations 28, blood pressure 128/82. Pupils are equal and round. Lungs are clear in all lung [place]. Cardiovascular Examination: Regular rhythm and rate without murmur or S3. Urine output is 2200 mL. Chest x-ray, improved atelectasis of the left lower lobe. He had an abdominal ultrasound done yesterday. Continues to be mild fatty infiltration of liver. Aorta and inferior vena cava predominantly obscured. Normal pancreatic body. The head and tail were obscured. No ascites. Gallbladder contracted. No stones. The common bile duct was 2 mm. Normal kidneys. There was no sign of hydronephrosis. Spleen is borderline mildly prominent. ASSESSMENT AND PLAN: 1. Acute stroke. Appears neurologically about the same. 2. Aspiration pneumonia. Continue present antibiotics. Clinically improving. He has been off the ventilator for going on 48 hours. Seems to be doing well. 3. Hypoxemic respiratory failure. 4. Status post tracheostomy placement. 5. He is on the Clinimix. 6. I believe he is getting some tube feeding. REVIEW OF HIS ORDERS: Aspirin 325 mg a day, Lovenox 40 mg subcutaneous q.24 hours, ertapenem 1 g q.24 hours, Protonix 40 mg IV q.24 hours. We are going to have to see about his nutrition and pursue tube feeding possibly. He is NPO at the present time. cc: Michael Xavier MD
--- NOTE | 2019-02-06 16:43 | PULMONOLOGY PROGRESS NOTE ---
DATE: 02/06/2019 SUBJECTIVE: Patient arouses to his voice. He does follow the practitioner. He has no increased work of breathing. He was on pressure support overnight.HEENT: Pupils are equal and reactive. Oropharynx is clear Neck: Supple. Chest: Reveals occasional rhonchi. Cardiac: S1-S2. Abdomen: Soft with positive bowel sounds. Extremities: Without edema. LABORATORIES: Chest x-ray reveals decreased infiltrates at the left base. IMPRESSION: 58-year-old with 1. Acute stroke. 2. Aspiration pneumonia. 3. Hypoxemic respiratory failure. 4. Atelectasis with resolution following nocturnal ventilation. 5. Status post tracheostomy placement. PLAN: 1. Continue tracheostomy collar during the daytime and nocturnal ventilator use. 2. Continue tube feeds. 3. Overall prognosis is guarded. cc: Stephen Rodríguez MD
[2019-02-06] MEDS: MORPHINE IV PRN (17:59)
[2019-02-06] MEDS: LOVENOX SUBQ SCH (20:07)
[2019-02-07] MEDS: DUONEB (A & A) INH SCH ×6 (03:44→23:37)
[2019-02-07 04:25] LABS: ALLEN TEST YES; BE 4.3 mmoll (-3.0-3.0); BLOOD TYPE ARTERIAL; HCO3-(ACT) 28.2 mmoll (20.0-26.0); METHB 1.4 % (0.0-1.5); O2(CT) 16.7 mL/dL (15.0-23.0); O2HB 95.4 % (95.0-99.0); PCO2(98.6) 28 mmHg (35-45); PO2(98.6) 83 mmHg (60-100); SAMPLE BLOOD; THB 12.4 g/dL (11.5-17.4)
[2019-02-07 04:28] LABS: MODALITY VENTILATOR; pH(98.6) 7.57 (7.35-7.45)
[2019-02-07 05:32] LABS: AGAP 13; ALB/GLOB RATIO 0.7; ALBUMIN 3.1 g/dL (3.5-5.0); ALKALINE PHOSPHATASE 98 U/L (32-122); BUN 23 mg/dL (8-22); CALCIUM 7.5 mg/dL (8.8-10.2); CHLORIDE 99 mmol/L (98-107); COSMO 271; CREATININE 0.5 mg/dL (0.7-1.2); ESTIMATED GFR > 60; GLUCOSE 117 mg/dL (70-104); GOT 33 U/L (10-34); GPT 83 U/L (10-44); POTASSIUM 4.1 mmol/L (3.5-5.1); SODIUM 133 mmol/L (136-145); TCO2 21 mmol/L (25-35); TOTAL BILIRUBIN 0.38 mg/dL (0.20-1.00); TOTAL PROTEIN 7.3 g/dL (6.3-8.3)
[2019-02-07 05:38] LABS: BASO# 0.07 X1000 (0.0-0.2); BASO% 0.5 % (0.0-0.8); EOS# 0.17 X1000 (0.0-0.7); EOS% 1.2 % (0.0-10.0); HEMATOCRIT 36.8 % (42.0-52.0); HEMOGLOBIN 12.1 g/dL (14.0-18.0); IMM GRAN# 0.14 X1000 (0.0-0.04); LYMPH# 2.22 X1000 (1.2-3.4); LYMPH% 16.3 % (20.5-51.1); MCH 29.1 PG (27-31); MCHC 32.9 g/dL (33-37); MCV 88.5 FL (81-99); MONO# 0.98 X1000 (0.11-0.59); MONO% 7.2 % (1.7-9.3); MPV 11.1 FL (7.4-10.4); NEUT# 10.07 X1000 (1.4-6.5); NEUT% 73.8 % (42.2-75.2); PLT 337 X1000 (130-400); RBC 4.16 XMIL (4.7-6.1); RDW 12.5 % (11.5-14.5); WBC 13.65 X1000 (4.8-10.8)
[2019-02-07] MEDS: PROTONIX IV SCH (06:29)
--- NOTE | 2019-02-07 06:58 | Diag Imaging Result Doc PS360 ---
CHEST-PORTABLE - 02/07/2019 INDICATION: respiratory failure COMPARISON: 02/06/2019 FINDINGS: Support lines and tubes are stable and in good position. The lungs are clear. Heart size is normal. No pneumothorax or pleural effusion. IMPRESSION: No acute disease or complication. Electronically signed by Cameron Sainz 02/07/2019 6:55 AM
[2019-02-07] MEDS: OFIRMEV 1000 MG/ISOTONIC SOLN 1,000 MG/100 ML BOTTLE IV PRN ×2 (08:04→16:06)
[2019-02-07] MEDS: INVANZ 1 GM/NS 1 GM/50 ML IVPB IV SCH (08:04)
[2019-02-07] MEDS: MUCOMYST 20% INH SCH ×2 (08:31→20:10)
--- NOTE | 2019-02-07 09:02 | INFECTIOUS DISEASE PROGRESS NO ---
DATE: 02/07/2019 PRESENT ILLNESS: The patient had an extended-spectrum beta lactamase-producing Escherichia coli bibasilar pneumonia. The patient's chest x-ray shows no infiltrate, and only on CT scan were the infiltrates seen. The patient has completed treatment for a Staph hominis bacteremia. MEDICATIONS: This is day 10 of treatment with ertapenem for the presumed pneumonia. PHYSICAL EXAMINATION: Vital Signs: Temperature is 99 degrees, pulse 122, respirations 16, blood pressure 119/83. General: This is an ill-appearing, middle-aged male. He is in no acute distress. HEENT: He has an NG tube in place. There is no drainage coming from his nose or ears. Neck: The patient has a tracheostomy in place. There is no surrounding erythema or purulence. Lungs: Clear to auscultation. Cardiovascular: Regular heart rate. Abdomen: Soft and nontender. Extremities: The patient has a PICC in his right arm. The site is not erythematous or purulent. Neurologic: The patient is awake. He did follow request to move his extremities. He has a left hemiplegia, but he did move his arm and leg to request. IMAGING AND LABORATORY DATA: Chest x-ray shows clear lung arrington. The patient's hepatitis panel is nonreactive. Creatinine is 0.5. GFR is greater than 60. ALT is 83. CBC shows a white count of 13,650, hemoglobin 12.1, and platelet count 337,000. Blood gases show a pH of 7.57, a PO2 of 83, and a pCO2 of 28. ASSESSMENT AND PLAN: The patient's bacteremia has cleared, and it is my opinion that the patient has received enough treatment with ertapenem to clear up the patient's extended-spectrum beta lactamase-producing Escherichia coli pneumonia. My plan now is to discontinue the patient's ertapenem. COMORBIDITIES: The patient had a stroke. He also used electronic cigarettes, and currently now he has a tracheostomy. cc: Mansoor Chamberlain MD
[2019-02-07] MEDS: ASPIRIN PO SCH (09:03)
--- NOTE | 2019-02-07 10:16 | PROGRESS NOTE ---
DATE: 02/07/2019 SUBJECTIVE: Mr. Jose is awake. He is back on, I think, the ventilator at this point with a trach tube. OBJECTIVE: Vital Signs: Temp was 100.1 degrees, pulse 120, respirations 39. HEENT: Pupils are equal and round. Lungs: Clear in all lung arrington. Cardiovascular: Regular rhythm and rate without murmur or S3. Abdomen: Soft, nondistended. He has an NG tube in, getting NG tube feeding. Urine output is 1700 mL. ASSESSMENT AND PLAN: 1. Extended-spectrum beta lactamase-producing Escherichia coli bibasilar pneumonia. This has been treated. Also had a bacteremia, and both have been treated. It was Staphylococcus hominis bacteremia. Still has an elevated white count, but we are going to stop his antibiotics. 2. Cerebrovascular accident, right middle cerebral artery, left-sided hemiparesis. Really no change neurologically. 3. Unable to swallow. Has a tracheostomy, and we are giving him nasogastric feeding. Ask Gastroenterology to consider a percutaneous endoscopic gastrostomy tube placement. 4. Aspiration pneumonia, and required tracheostomy because of prolonged ventilation. In the weaning process now. Looking at long-term acute care. REVIEW OF ORDERS: I do not see any change. I will consult GI to consider PEG tube placement in the hopes that maybe we can pursue LTAC. cc: Michael Xavier MD
--- NOTE | 2019-02-07 14:50 | GASTROENTEROLOGY CONSULTATION ---
DATE: 02/07/2019 REASON FOR CONSULT: PEG tube placement. HISTORY OF PRESENT ILLNESS: Mr. Jose is a 58-year-old man who has been in the hospital since 01/17/2019. Unable to get any information from the patient, he is sedated, information gathered from nursing staff and past medical reports. He came in with a right sided CVA.. The patient has dysphagia. He has a trach collar. NG tube feeding with Jevity 35 mL/h. As per nursing staff, he did have one bowel movement. PAST MEDICAL HISTORY: High blood pressure. PAST SURGICAL HISTORY: Bilateral ankle surgeries and cervical fusions. ALLERGIES: Eggs. CURRENT MEDICATIONS: Duloxetine 30 mg twice a day. Hydrocodone 10 mg/325 every 8 hours. Morphine sulfate 30 mg q.12 hours, Xanax 0.5 mg b.i.d. p.r.n., atenolol 50 mg tablet. SOCIAL HISTORY: Former smoker, currently vapes,alcohol abuse and drug abuse in the past. PAST FAMILY HISTORY: No significant GI malignancies. REVIEW OF SYSTEMS: Unable to obtain as patient is sedated. PHYSICAL EXAMINATION: Vital Signs: Temperature 100.1 degrees, pulse 95, respirations 23, blood pressure 147/89, oxygen saturation 98% on trach collar. The patient's weight is 174 pounds. BMI is 27.3 kg/m2. General: Unable to assess the patient. The patient is sedated. HEENT: Pale conjunctivae. No icterus. PERRL. Neck: Supple. Chest: Rhonchi and wheezing heard in the anterior lobes bilaterally. Cardiovascular: Patient is tachycardic. Abdomen: Soft, nondistended. Active bowel sounds heard in all 4 quadrants. Extremities: Generalized edema in the upper and lower extremities. Neurologic: Unable to assess. Patient is sedated. . LABORATORY DATA: WBCs 13.65, RBCs 4.16, hemoglobin 12.1, hematocrit is 36.8, platelet count is 337,000. Sodium 133, potassium 4.1, chloride 99, carbon dioxide 21, anion gap is 13, BUN is 23, creatinine is 0.5, calcium 7.5, total bilirubin 0.38, AST is 33, ALT is 83, alkaline phosphatase is 98.2, albumin is 3.1. Hepatitis profile was nonreactive. Chest x-ray showed no acute disease or complication. Abdominal ultrasound showed no internal change. IMPRESSION: 1. Pneumonia. 2. CVA 3. Left sided hemiparesis 4. Anemia. 5. Status post tracheostomy placement. 6. Malnutrition. Receiving NG tube feedings. Tolerating well. 7. Acute respiratory failure. Improving. 8. Dysphagia secondary to CVA. PLAN: The patient is currently on NG tube feeding, Jevity at 35 mL/h. He is on Protonix IV daily 40 mg. The patient is receiving Levaquin for his pneumonia. The plan is to do an EGD with PEG placement tomorrow. Further plan of care will be discussed based on the EGD findings and PEG placement. This plan was discussed with Dr. Hernandez. Thank you for your consult. Please call us for any further questions or concerns. Dictated by GIOVANA Dawn for Willian Hernandez MD cc: Willian Hernandez MD I have seen and examined the patient myself and I agree with the above plan of care. I have discussed the above with the patient's RN at bedside and all questions were answered. Please call us with any further questions. [facility]
[2019-02-07] MEDS: LOVENOX SUBQ SCH (20:05)
--- NOTE | 2019-02-07 21:57 | PULMONOLOGY PROGRESS NOTE ---
DATE: 02/07/2019 SUBJECTIVE: The patient is awake and alert. He appears comfortable on the trach collar. OBJECTIVE: Vital Signs: Maximum temperature this morning was 100.1 degrees. Blood pressure 138/92, heart rate 98, respiratory rate 30, oxygen saturation 100% on trach collar. HEENT: Pupils are equal and reactive. Oropharynx appears clear. Neck: Supple. Chest: Occasional rhonchi bilaterally. Cardiac: S1, S2. Abdomen: Soft. Extremities: Without edema. LABORATORIES: White blood count 13.7, hemoglobin 12.1, platelet count 337,000. Arterial blood gas reveals pH 7.57, pCO2 of 28, pO2 of 83. Sodium 133, potassium 4.1, chloride 99, bicarbonate 31, BUN 23, creatinine 0.5. IMPRESSION: 58-year-old with: 1. Acute stroke. 2. Aspiration pneumonia. 3. Hypoxemic respiratory failure. 4. Status post tracheostomy placement. PLAN: 1. Continue to cycle trach collar trials with nocturnal ventilatory support. 2. Continue tube feeds. 3. Antibiotics per Infectious Disease. 4. Anticipate percutaneous endoscopic gastrostomy tube placement. cc: Stephen Rodríguez MD
[2019-02-08] MEDS: MORPHINE IV PRN ×4 (03:33→20:23)
[2019-02-08] MEDS: DUONEB (A & A) INH SCH ×6 (03:54→23:20)
[2019-02-08 04:43] LABS: ALLEN TEST YES; BE 4.4 mmoll (-3.0-3.0); BLOOD TYPE ARTERIAL; HCO3-(ACT) 28.4 mmoll (20.0-26.0); METHB 1.1 % (0.0-1.5); O2(CT) 17.5 mL/dL (15.0-23.0); O2HB 97.1 % (95.0-99.0); PCO2(98.6) 31 mmHg (35-45); PO2(98.6) 161 mmHg (60-100); SAMPLE BLOOD; SAO2 99.4 % (95.0-100.0); THB 12.6 g/dL (11.5-17.4); pH(98.6) 7.54 (7.35-7.45)
[2019-02-08 04:44] LABS: MODALITY BI PAP
[2019-02-08 06:16] LABS: AGAP 15; ALB/GLOB RATIO 0.7; ALBUMIN 3.1 g/dL (3.5-5.0); ALKALINE PHOSPHATASE 89 U/L (32-122); BUN 23 mg/dL (8-22); CALCIUM 8.5 mg/dL (8.8-10.2); CHLORIDE 100 mmol/L (98-107); COSMO 278; CREATININE 0.4 mg/dL (0.7-1.2); ESTIMATED GFR > 60; GLUCOSE 113 mg/dL (70-104); GOT 28 U/L (10-34); GPT 72 U/L (10-44); SODIUM 137 mmol/L (136-145); TCO2 22 mmol/L (25-35); TOTAL BILIRUBIN 0.43 mg/dL (0.20-1.00); TOTAL PROTEIN 7.4 g/dL (6.3-8.3)
[2019-02-08] MEDS: PROTONIX IV SCH (06:23)
--- NOTE | 2019-02-08 07:10 | Diag Imaging Result Doc PS360 ---
EXAM: CHEST-PORTABLE 02/08/2019 HISTORY: respiratory failure TECHNIQUE: AP portable at 0551 COMMENT: There is a tracheostomy tube and an NG tube which passes below the diaphragm. The appearance of the chest has not changed significantly since 02/07/2019. IMPRESSION: Stable chest. Electronically signed by Simone Phillips 02/08/2019 7:08 AM
[2019-02-08 08:09] LABS: BASO# 0.06 X1000 (0.0-0.2); BASO% 0.6 % (0.0-0.8); EOS# 0.33 X1000 (0.0-0.7); EOS% 3.4 % (0.0-10.0); HEMATOCRIT 36.5 % (42.0-52.0); HEMOGLOBIN 11.7 g/dL (14.0-18.0); IMM GRAN# 0.13 X1000 (0.0-0.04); IMM GRAN% 1.3 % (0.0-0.5); LYMPH# 1.98 X1000 (1.2-3.4); LYMPH% 20.3 % (20.5-51.1); MCH 28.2 PG (27-31); MCHC 32.1 g/dL (33-37); MONO# 0.87 X1000 (0.11-0.59); MONO% 8.9 % (1.7-9.3); MPV 10.8 FL (7.4-10.4); NEUT# 6.36 X1000 (1.4-6.5); NEUT% 65.5 % (42.2-75.2); PLT 299 X1000 (130-400); RBC 4.15 XMIL (4.7-6.1); RDW 12.5 % (11.5-14.5); WBC 9.73 X1000 (4.8-10.8)
[2019-02-08] MEDS: LEVAQUIN 500 MG/D5W 500 MG/100 ML IVPB IV SCH (08:14)
[2019-02-08] MEDS: MUCOMYST 20% INH SCH ×2 (08:29→19:25)
[2019-02-08] MEDS ORDERED: SODIUM CHLORIDE 0.9% 10 ML ONE (08:57)
--- NOTE | 2019-02-08 09:22 | ENDOSCOPY OPERATIVE NOTE ---
[facility] ENDOSCOPY OPERATIVE NOTE , EGD WITH PEG PROCEDURE REPORT EXAM DATE: 02/08/2019 PATIENT NAME: Ravi Jose MR #: [id number] BIRTHDATE: 1960 ATTENDING: Ahsan Silva MD STATUS: inpatient SIGN ERECTOR: Marie Montalvo INDICATIONS: The patient is a 58 yr old male here for an EGD with PEG due to dysphagia, pharyngeal. PROCEDURE PERFORMED: EGD w/ percutaneous gastrostomy tube placement MEDICATIONS: Per Anesthesia TOPICAL ANESTHETIC: none CONSENT: The patient understands the risks and benefits of the procedure and understands that these r isks include, but are not limited to: sedation, allergic reaction, infection, perforation and/or bleeding. Alternative means of evaluation and treatment include, among others: physical exam, x-rays, and/or surgical intervention. The patient elects to proceed with this endoscopic procedure. HISTORY AND PHYSICAL: 02/08/2019 DESCRIPTION OF PROCEDURE: During pre-op preparation period all mechanical and medical equipment was c hecked for proper function. Hand hygiene and appropriate measures for infection prevention was taken. After the risks, benefits and alternatives of the procedure were thoroughly explained, Informed consent was verified, confirmed and timeout was successfully executed by the treatment team. The patient was anesthetized with topical anesthesia and the [id number]-[id number] ([id number]) endoscope was introduced through the mouth and advanced to the second portion of the duoden um. The instrument was slowly withdrawn as the mucosa was fully examined. ESOPHAGUS: Esophagitis was found at the gastroesophageal junction. Esophagitis was LA Class A: One o r more mucosal breaks < 5 mm in maximal length. STOMACH: Mild gastritis (inflammation) was found in the gastric antrum and gastric body. A biopsy wa s performed using cold forceps. Sample sent for histology. DUODENUM: The duodenum was normal. The stomach was then inflated with air, and by a combination of transillumination and manual palpatio n, the site for the gastrostomy tube placement was selected and marked on the anterior abdominal wall. The skin of the a nterior abdomen was surgically prepped and draped with sterile towels. Utilizing strict sterile technique, the selected site was then anesthetized with 1% lidocaine by inje ction into the skin and subcutaneous tissue. A 1 cm incision was made through the skin and subcutaneous tissue, and the needle/cannula assembly was then passed through the abdominal wall and through the anterior wall of the stomach, megan ntaining visualization with the endoscope. A snare device previously placed through the instrument channel wa s then opened and placed around the cannula, the needle was removed, and the insertion wire was passed through the jordana wendy and into the stomach lumen. The snare was then loosened from the cannula, and repositioned to snare the insertion wire. The snare was then pulled up to the endoscope distal tip, and the scope was then withdrawn bringing with it the snare and insertion wire. The insertion wire was then released from the snare, and then loop-attached to the [employer] 24 Fr gastrostomy tube. Using the "pull technique", the G-tube was then pulled into place by traction on the insertion wire a t the abdominal wall end. The G-tube insertion site was then cleansed once again, and the external bolster was placed over the tube to secure it to the abdominal wall at 3.5 cm from the skin. Betadine ointment was placed under bolster. A sterile dressing was then applied, and the procedure terminated. Endoscope was reintroduced to confirm placem ent of PEG, which was in appropriate location. Retroflexion was performed in the stomach and revealed no abnormalities. The gastroscope was then sl owly withdrawn and removed. ADVERSE EVENT: There were no complications. IMPRESSIONS: 1. Esophagitis at the gastroesophageal junction 2. Gastritis (inflammation) was found in the gastric antrum and gastric body; biopsy was performed 3. The duodenum was normal 4. PEG tube placed without complications RECOMMENDATIONS: 1. Await biopsy results 2. PEG ok to use for water and medications OK to start tube feeds in 4 hours GI to perform PEG check tomorrow Routine PEG tube care Recommend PPI per PEG once daily REPEAT EXAM: Ahsan Silva MD eSigned: Ahsan Silva MD 02/08/2019 9:21 AM cc: CPT CODES: 46450 Upper gastrointestinal endoscopy including esophagus, stomach, and either the du odenum and/or jejunum as appropriate; with directed placement of percutaneous gastrostomy tube ICD CODES: 787.20 Dysphagia,unspecified 530.10 Esophagitis,unspecified 535.50 Unspecified gastritis and gastroduodenitis (without hemorrhage) The ICD and CPT codes recommended by this software are interpretations from the data that the [facility] staff has captured with the software. The verification of the translation of this report to the ICD and CPT co shazia and modifiers is the sole responsibility of the health care institution and practicing physician where this report was generated. [employer] will not be held responsible for the validity of the ICD and CPT codes i ncluded on this report. AMA assumes no liability for data contained or not contained herein. CPT is a registered tra demark of the [employer]. PATIENT NAME: Ravi Jose MR#: [id number]
[2019-02-08] MEDS: ASPIRIN PO SCH (09:58)
--- NOTE | 2019-02-08 15:08 | INFECTIOUS DISEASE PROGRESS NO ---
DATE: 02/08/2019 PRESENT ILLNESS: Mr. Jose has been treated for an extended spectrum beta lactamase producing Escherichia coli pneumonia. His chest x-rays had improved, so he was taken off ertapenem. He has also completed treatment for a staphylococcus bacteremia. MEDICATIONS: He has been put on Levaquin 500 [address] daily [address] Hernandez. PHYSICAL EXAMINATION: Vital Signs: Temperature is 97.1 degrees, pulse rate 103, respiratory rate 23, blood pressure 118/81, O2 saturation 100% on 40% FiO2 trach collar. General: This is a chronically ill-appearing, middle-aged gentleman. He is lying in bed, currently in no acute distress. HEENT: Atraumatic, normocephalic. Oral mucous membranes are pink and moist. Conjunctivae are pink. Neck: Supple. Trachea is midline. He does have a tracheostomy tube in place and is coughing up some thick, lundberg sputum. Respiratory: Lung sounds are mostly clear in the upper lobes and diminished in the bases with an occasional mild rhonchi noted with coughing. Abdomen: Soft, round and tender to palpation. There is a new PEG tube in place. The site is taped over from insertion this morning. Integumentary: Skin is warm and dry. There is a PICC line in place to his right upper arm. The site is without edema, erythema, or drainage. Neurologic: He is nonverbal but is able to nod his head appropriately and mouth words. He does move his right upper and lower extremities but the left side seems to be flaccid. LABORATORY AND X-RAY: Today, his white count is 9.73, hemoglobin 11.7, platelet count 299,000, on a 40% FiO2. His pH this morning was 7.54, pCO2 31, PO2 161, HCO3 28.4. His creatinine is 0.4 with an estimated GFR of greater than 60. Total bilirubin is 0.43, AST 28, ALT 72, alkaline phosphatase 89. Repeat check of his sputum shows gram-negative branden which is growing on the preliminary report. Chest x-ray today shows no significant change since yesterday. Yesterday, the chest x-ray showed no acute disease or complication. ASSESSMENT AND PLAN: Mr. Jose has been treated for an extended spectrum beta lactamase producing Escherichia coli in his sputum. The chest x-ray has looked clear, however upon recheck of his sputum there is an a gram-negative branden growing. For now, we will leave the Levaquin as ordered and await the final cultures for any changes to his antibiotics. These plans have been discussed with and recommended by Dr. Chamberlain. COMORBIDITIES: For Mr. Jose include a previous stroke, tracheostomy, and previous use of electronic cigarettes. Dictated by GIOVANA Medina for Mansoor Chamberlain MD cc: Mansoor Chamberlain MD MTDD
--- NOTE | 2019-02-08 19:38 | PULMONOLOGY PROGRESS NOTE ---
DATE: 02/08/2019 SUBJECTIVE: The patient is awake and alert. He has just returned from his PEG placement. He appears to be comfortable on trach collar. OBJECTIVE: Vital signs: Temperature 99.3 degrees, blood pressure 118/72, heart rate 82, respiratory rate 19, oxygen saturation 100%. HEENT: Pupils are equal and reactive. Oropharynx appears clear. Neck: Supple, with tracheostomy in good position. Chest: Occasional rhonchi. Cardiac: S1, S2. Abdomen: Soft. Extremities: Without edema. LABORATORIES: Chest x-ray reveals tracheostomy and NG tube in good position. White blood count 9.73, hemoglobin 11.7, platelet count 299,000. Sodium 137, potassium 4.0, chloride 100, bicarbonate 22, BUN 23, creatinine 0.4. IMPRESSION: 58-year-old with: 1. Acute stroke. 2. Aspiration pneumonia. 3. Acute hypoxemic respiratory failure. 4. Status post tracheostomy placement. 5. Status post percutaneous endoscopic gastrostomy tube placement. PLAN: 1. Continue to cycle tracheostomy collars with nocturnal ventilatory support. 2. Continue tube feeds. 3. Antibiotics per Infectious Disease. 4. Consider alf acute care for continued management. cc: Stephen Rodríguez MD
[2019-02-08] MEDS: LOVENOX SUBQ SCH (20:30)
--- NOTE | 2019-02-08 21:15 | PROGRESS NOTE ---
DATE: 02/08/2019 SUBJECTIVE: The patient is currently resting comfortably. He had a PEG tube placed today. OBJECTIVE: Vital Signs: Temperature 98.6 degrees, blood pressure 132/87, heart rate 89, respirations 18, O2 saturations 100% on 100% mask. Intake 1.3 L, output 710. General: This is a chronically ill-appearing elderly male lying in bed in no acute distress. Head: Normocephalic, atraumatic. Heart: S1, S2 normal. Tachycardic. Lungs: Equal air entry bilaterally. No wheezing. No rales. Abdomen: Positive bowel sounds. Soft, nontender, nondistended. Extremities: No edema. No cyanosis. Neurologic: The patient is awake. LABS: White blood cell count 9.7, hemoglobin 11, hematocrit 36, platelets 299,000. Sodium 137, potassium 4, chloride 100, CO2 22, BUN 23, creatinine 0.4, glucose 113. Chest x-ray shows no change. ASSESSMENT AND PLAN: 1. Acute hypoxemic respiratory failure status post tracheostomy placement. Continue with respiratory toiletry. 2. Aspiration pneumonia secondary to ESBL E.coli.. Continue on levaquin. ID is following. 3. Acute cerebrovascular accident. Continue with supportive care. 4. Dysphagia status post percutaneous endoscopic gastrostomy tube placement. We will resume tube feeds. 5. Anemia. Stable. 6. GI prophylaxis. Continue on protonix. 7. DVT prophylaxis. Continue on lovenox. DISPOSITION: An LTAC evaluation has been submitted. We will await approval. cc: MD CLAIRE Corcoran
[2019-02-09] MEDS: MORPHINE IV PRN ×2 (02:05→09:43)
[2019-02-09] MEDS: DUONEB (A & A) INH SCH ×3 (03:13→11:18)
[2019-02-09 04:41] LABS: ALLEN TEST YES; BE 2.9 mmoll (-3.0-3.0); BLOOD TYPE ARTERIAL; HCO3-(ACT) 27.2 mmoll (20.0-26.0); O2(CT) 16.6 mL/dL (15.0-23.0); PCO2(98.6) 32 mmHg (35-45); PO2(98.6) 126 mmHg (60-100); SAMPLE BLOOD; SAO2 99.4 % (95.0-100.0); pH(98.6) 7.51 (7.35-7.45)
[2019-02-09 04:49] LABS: MODALITY VENTILATOR
[2019-02-09 05:46] LABS: BASO# 0.04 X1000 (0.0-0.2); BASO% 0.5 % (0.0-0.8); EOS# 0.25 X1000 (0.0-0.7); EOS% 3.4 % (0.0-10.0); HEMATOCRIT 36.1 % (42.0-52.0); HEMOGLOBIN 11.4 g/dL (14.0-18.0); IMM GRAN# 0.08 X1000 (0.0-0.04); IMM GRAN% 1.1 % (0.0-0.5); LYMPH# 2.09 X1000 (1.2-3.4); MCHC 31.6 g/dL (33-37); MCV 88.7 FL (81-99); MONO# 0.61 X1000 (0.11-0.59); MONO% 8.2 % (1.7-9.3); MPV 11.6 FL (7.4-10.4); NEUT# 4.39 X1000 (1.4-6.5); NEUT% 58.8 % (42.2-75.2); PLT 267 X1000 (130-400); RBC 4.07 XMIL (4.7-6.1); RDW 12.5 % (11.5-14.5); WBC 7.46 X1000 (4.8-10.8)
[2019-02-09 06:12] LABS: AGAP 14; ALB/GLOB RATIO 0.8; ALKALINE PHOSPHATASE 90 U/L (32-122); BUN 23 mg/dL (8-22); CALCIUM 7.8 mg/dL (8.8-10.2); CHLORIDE 101 mmol/L (98-107); COSMO 281; CREATININE 0.5 mg/dL (0.7-1.2); ESTIMATED GFR > 60; GLUCOSE 131 mg/dL (70-104); GOT 26 U/L (10-34); GPT 49 U/L (10-44); POTASSIUM 3.9 mmol/L (3.5-5.1); SODIUM 138 mmol/L (136-145); TCO2 23 mmol/L (25-35); TOTAL BILIRUBIN 0.34 mg/dL (0.20-1.00); TOTAL PROTEIN 6.7 g/dL (6.3-8.3)
[2019-02-09] MEDS: PROTONIX IV SCH (06:39)
[2019-02-09] MEDS ORDERED: PROTONIX PO SCH (07:00)
--- NOTE | 2019-02-09 07:28 | Diag Imaging Result Doc PS360 ---
EXAM: CHEST-PORTABLE HISTORY: respiratory failure TECHNIQUE: Chest single view COMPARISON: 02/08/2019 FINDINGS: No change in the tracheostomy tube or right-sided PICC line. The nasogastric tube has been removed. The lungs are well expanded. No cardiomegaly. No pneumonia. No pleural effusions. IMPRESSION: Interval improvement. Electronically signed by Sukhjinder Valdes 02/09/2019 7:26 AM
--- NOTE | 2019-02-09 07:48 | INFECTIOUS DISEASE PROGRESS NO ---
DATE: 02/09/2019 PRESENT ILLNESS: The patient has a gram-negative branden in his sputum. The identity of it is pending. He had a chest x-ray this morning. When I looked at it, I did not see an infiltrate but the radiologist still has to make the final reading. The patient previously had an extended spectrum beta lactamase producing E. Coli pneumonia. He also previously had a staphylococcal bacteremia. Both the pneumonia and bacteremia have been treated. MEDICATIONS: Dr. Hernandez has started the patient on Levaquin 500 mg IV daily. PHYSICAL EXAMINATION: Vital Signs: Temperature is 98 degrees, pulse 94, respirations 11, and blood pressure 113/89. General: This is an ill-appearing middle-aged male. He is in no acute distress. Head/eyes/ears/nose/throat: He can hear my spoken words and see near objects. I did not notice any white coating of his tongue. Neck: Patient has a tracheostomy in place. The site is not erythematous or purulent. Extremities: The patient has a PICC present in the right arm. The site is non erythematous or swollen. Lungs: Clear to auscultation. Cardiovascular: Heart rate is regular. Abdomen: Soft and non tender. Neurologic: Patient has a left hemiplegia. He did move his right leg and arm to request. Neurology: The patient has a left hemiplegia. He did move his right arm and leg to request. LABORATORY AND X-RAY: The patient's last chest x-ray was clear. There was one that was done today. When I looked at it, I did not see any pneumonia but the radiologist has not read it yet. Sputum is growing a gram-negative branden which has not yet been identified. The ALT is 49. Creatinine is 0.5. GFR is greater than 60. Blood gases show a pH of 7.51, a PO2 of 126, and a pCO2 of 32. ASSESSMENT AND PLAN: For now, I am going to wait and see what the sputum culture is growing and see also what the reading of the chest x-ray. I am also going to be seeing what the reading of the chest x-ray is. For now, I will stick with Levaquin. COMORBIDITIES: The patient has had a stroke. He also has a tracheostomy, and previously he used electronic cigarettes. cc: Mansoor Chamberlain MD
[2019-02-09] MEDS: MUCOMYST 20% INH SCH (07:50)
[2019-02-09] MEDS: LEVAQUIN 500 MG/D5W 500 MG/100 ML IVPB IV SCH (09:00)
[2019-02-09] MEDS: ASPIRIN PO SCH (09:43)
--- NOTE | 2019-02-09 11:19 | DISCHARGE SUMMARY ---
ADMISSION DATE: 01/17/2019 DISCHARGE DATE: 02/09/2019 FINAL DISCHARGE DIAGNOSES: 1. Acute hypoxemic respiratory failure 2. Aspiration pneumonia secondary to extended spectrum beta lactamase Escherichia coli. 3. Acute rhabdomyolysis. 4. Acute kidney injury. 5. 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 6. Status post percutaneous endoscopic gastrostomy tube placement secondary to dysphagia. 7. Status post tracheostomy insertion. 8. Carotid artery stenosis. 9. Bacteremia secondary to Staphylococcus hominis. 10. Transaminitis. 11. Anemia. CONSULTATIONS: 1. Pulmonary consultation with Dr. Rodríguez. 2. Nephrology consultation with Dr. Goldstein. 3. ID consultation with Dr. Chamberlain. 4. General surgery consultation with Dr. Romero. 5. Neurology consultation with Dr. Sauceda. 6. GI consultation with Dr. Hernandez. IMAGIN. CT of the head and cervical spine which revealed a recent right MCA distribution infarct. 2. Brain MRI performed on 01/18/2019 that revealed a recent infarct involving the right MCA distribution. 3. Carotid Doppler study performed on 01/18/2019 that revealed a right internal common carotid artery occlusion with thrombus in the right internal. No stenosis noted on the left. 4. Renal ultrasound performed on 01/18/2019 that revealed a normal finding. 5. Pulmonary arteriogram performed on 01/23/2019 that revealed a dense consolidation in both lung bases, consistent with pneumonia. No evidence of pulmonary embolism. 6. Abdominal ultrasound performed on 02/05/2019 that revealed mild fatty infiltration of the liver. PROCEDURES: 1. Endotracheal intubation. 2. Tracheostomy insertion performed on 01/26/2019. 3. EGD with PEG tube insertion. HOSPITAL COURSE: Mr. Jose is a 58-year-old male with a history of multiple medical problems who was initially brought to the ER with the chief complaint of altered mental status. Upon arrival to the ER, a head CT was done that revealed a recent right MCA distribution infarction. Also, the patient was noted to be in acute rhabdomyolysis and renal failure. The patient was admitted to the hospitalist service and blood cultures were obtained as well as a chest x- ray that revealed the possibility of pneumonia. Broad-spectrum antibiotics were also initiated. Neurology was consulted and a stroke workup was initiated. The carotid duplex study revealed total occlusion of the right internal common carotid artery but no significant stenosis was seen in the left carotid system. The patient developed respiratory distress and eventually was noted to be in respiratory failure. He was ultimately transferred to the ICU and intubated by Dr. Rodríguez. The patient was placed on ventilatory support at that time. Nephrology was consulted due to the patient's rhabdomyolysis, which improved with IV fluid administration. A pulmonary arteriogram was performed due to the patient's persistent episodes of hypoxemia despite being on full ventilatory support. It did reveal that the patient had lower lobe pneumonia. As a result, ID was consulted. Ultimately, the sputum grew out ESBL E. coli. The patient was then switched over to meropenem. Several attempts were made to wean the patient off of the ventilator. However, it was determined that the patient was not able to be weaned and so general surgery was consulted for tracheostomy insertion. The patient had a tracheostomy placed on 01/26/2019. Also, the patient continued to suffer from dysphagia and so the decision was made to have a PEG tube placed as well. The patient underwent an EGD with PEG tube insertion on 02/08/2019. At this time, the patient is currently tolerating tube feeds and he remains on the ventilator. This was all discussed with the patient and his family, and they are in agreement with being sent to the LT in [place] for further treatment and rehabilitation. A repeat chest x-ray was done which revealed resolution of the aspiration pneumonia so the patient's antibiotic therapy was discontinued. At this time, the patient is medically stable for transfer to [facility] in [place]. On the day of transfer, the patient was noted to have a white blood cell count of 7.4 with a hemoglobin of 11 and hematocrit of 36, and a platelet count of 267,000. The patient's vital signs are stable at this time. He is not requiring any pressor support or any drips at this time. DISCHARGE MEDICATIONS: 1. Protonix 40 mg IV every 24 hours. 2. Morphine 2 mg IV every 2 hours p.r.n. 3. Lovenox 40 mg subcutaneous every 24 hours. 4. Aspirin 325 mg via the PEG tube daily. 5. DuoNebs 3 mL nebulized every 4 hours. 6. Mucomyst 3 mL nebulized every 12 hours. DISCHARGE DIET: Will resume Jevity 1.5 at 45 mL per hour with 60 mL q.4 hour flush. DISPOSITION: The patient will be discharged to LT in [place] today. cc: Ciarra Henry MD MTDD
[2019-02-09 12:35] VITALS: BP 123/85
--- NOTE | 2019-02-09 23:32 | PROVIDER PROGRESS NOTE ---
Progress Note S: PEG tube placed yesterday without complications. No acute overnight events. Patient tolerating tube feeds. O: Last Vital Signs Temp 97.5 F L 02/09/19 12:00 Pulse 95 H 02/09/19 12:01 Resp 20 02/09/19 12:01 BP 123/85 02/09/19 12:01 Pulse Ox 100 02/09/19 12:01 Height 5 ft 7 in Weight 173 lb 14.4 oz GEN: awake, alert, NAD HEENT: anicteric, MMM, EOMI NECK: trach tube in place PULM: CTAB, no wheezing CV: RRR, no murmurs ABD: PEG site with dressing c/d/i, tube rotates within track 360 degrees, bolster is at 3.5cm from skin, no induration or erythema, tube feeds running, BS present, ND, NT EXT: no cce LABS 02/09/19 02/09/19 04:00 04:00 WBC 7.46 Hgb 11.4 L Plt Count 267 Sodium 138 Potassium 3.9 Chloride 101 Carbon Dioxide 23 L BUN 23 H Creatinine 0.5 L Total Bilirubin 0.34 AST 26 ALT 49 H Alkaline Phosphatase 90 Total Protein 6.7 Albumin 3.0 L EGD with PEG placement 02/08 ESOPHAGUS: Esophagitis was found at the gastroesophageal junction. Esophagitis was LA Class A: One or more mucosal breaks < 5 mm in maximal length. STOMACH: Mild gastritis (inflammation) was found in the gastric antrum and gastric body. A biopsy was performed using cold forceps. Sample sent for histology. DUODENUM: The duodenum was normal. A/P: Mr. Ravi Jose is a 58 year old man admitted with CVA with left-sided hemiparesis and pneumonia s/p trach and PEG. GI consulted for PEG placement, which was done yesterday without complications. Random gastric biopsies pending. On PPI. Anemic without overt bleeding. # Dysphagia # CVA # Anemia # Esophagitis # Gastritis Will sign off. Please call with questions.
== END 2019-02-09 11:58 | DRG 4 ==
LOC: ED 22:49 → SUATTDRO 23:06 → ICU 01-18 02:39 → SUATTDRO 01-18 02:39
PROVIDERS: ATTEND Internal Medicine

== ENCOUNTER 2019-04-11 18:15 | Inpatient (IN) ==
[2019-04-11] MEDS ORDERED: TYLENOL PO PRN (18:35)
[2019-04-11] MEDS ORDERED: ZOFRAN IV PRN (18:35)
[2019-04-11] MEDS ORDERED: NS 1,000 ML IV SCH (18:45)
[2019-04-11] MEDS ORDERED: NS NEB INH SCH (18:45)
[2019-04-11 18:58] LABS: ALLEN TEST YES; BE 2.7 mmoll (-3.0-3.0); BLOOD TYPE ARTERIAL; METHB 0.7 % (0.0-1.5); O2(CT) 15.6 mL/dL (15.0-23.0); O2HB 96.1 % (95.0-99.0); PCO2(98.6) 35 mmHg (35-45); PO2(98.6) 82 mmHg (60-100); SAMPLE BLOOD; SAO2 98.6 % (95.0-100.0); THB 11.5 g/dL (11.5-17.4); pH(98.6) 7.48 (7.35-7.45)
[2019-04-11 19:00] LABS: MODALITY ROOM AIR
--- NOTE | 2019-04-11 19:05 | Diag Imaging Result Doc PS360 ---
EXAM: CHEST-PORTABLE 04/11/2019 HISTORY: dyspnea TECHNIQUE: AP portable upright at 1858 COMMENT: There is no evidence of acute cardiac or pulmonary disease. There is a PICC line on the left with its tip in the superior vena cava. Compared to 02/09/2019 there has been no significant change. IMPRESSION: No evidence of acute disease. Electronically signed by Simone Phillips 04/11/2019 7:03 PM
[2019-04-11 20:19] LABS: BASO# 0.04 X1000 (0.0-0.2); BASO% 0.5 % (0.0-0.8); EOS# 0.21 X1000 (0.0-0.7); EOS% 2.7 % (0.0-10.0); HEMATOCRIT 35.7 % (42.0-52.0); HEMOGLOBIN 11.2 g/dL (14.0-18.0); IMM GRAN# 0.02 X1000 (0.0-0.04); IMM GRAN% 0.3 % (0.0-0.5); LYMPH# 1.76 X1000 (1.2-3.4); LYMPH% 22.7 % (20.5-51.1); MCH 25.9 PG (27-31); MCHC 31.4 g/dL (33-37); MCV 82.4 FL (81-99); MONO# 0.51 X1000 (0.11-0.59); MONO% 6.6 % (1.7-9.3); MPV 10.7 FL (7.4-10.4); NEUT# 5.22 X1000 (1.4-6.5); NEUT% 67.2 % (42.2-75.2); PLT 263 X1000 (130-400); RBC 4.33 XMIL (4.7-6.1); WBC 7.76 X1000 (4.8-10.8)
[2019-04-11 20:22] LABS: INR 1.13; PROTIME 14.6 Seconds (11.0-16.0)
[2019-04-11 20:32] LABS: AGAP 13; ALB/GLOB RATIO 0.9; ALBUMIN 3.5 g/dL (3.5-5.0); ALKALINE PHOSPHATASE 67 U/L (32-122); BUN 9 mg/dL (8-22); CALCIUM 9.1 mg/dL (8.8-10.2); CHLORIDE 99 mmol/L (98-107); COSMO 275; CREATININE 0.5 mg/dL (0.7-1.2); ESTIMATED GFR > 60; GLUCOSE 109 mg/dL (70-104); GOT 14 U/L (10-34); GPT 9 U/L (10-44); POTASSIUM 3.7 mmol/L (3.5-5.1); SODIUM 138 mmol/L (136-145); TCO2 26 mmol/L (25-35); TOTAL BILIRUBIN 0.23 mg/dL (0.20-1.00); TOTAL PROTEIN 7.2 g/dL (6.3-8.3)
[2019-04-11] MEDS ORDERED: DILAUDID IV PRN (20:44)
[2019-04-11] MEDS ORDERED: VANCOMYCIN IV PER PHARMACY MISC SCH (20:45)
[2019-04-11] MEDS: XOPENEX NEB INH SCH (21:43)
[2019-04-11] MEDS ORDERED: VANCOMYCIN 2,300 MG in NS 500 ML IV ONE (22:00)
[2019-04-11] MEDS: NS 1,000 ML IV SCH (22:20)
[2019-04-11] MEDS: FLEXERIL PO SCH (22:20)
[2019-04-11] MEDS: MELATONIN PO SCH (22:20)
[2019-04-11] MEDS: MAXIPIME 2 GM/NS 2 GM/100 ML IVPB IV SCH (22:20)
[2019-04-11] MEDS: LOPRESSOR PO SCH (22:21)
[2019-04-11] MEDS: HUMULIN R SUBQ SCH (22:54)
[2019-04-11] MEDS: NORCO-7.5 PO PRN (23:24)
[2019-04-12] MEDS: HEPARIN SUBQ SCH ×2 (05:57→15:49)
[2019-04-12] MEDS: HUMULIN R SUBQ SCH ×3 (06:34→16:26)
--- NOTE | 2019-04-12 06:35 | HISTORY AND PHYSICAL ---
Mr. Jose is a 58-year-old male with a history of aspiration pneumonia secondary to ESBL E coli, gastritis, carotid artery stenosis, CVA 2 months ago and hepatic steatosis who was sent from [facility] rehab due to an infected right hip and decubitus ulcer. The patient has been undergoing intensive rehab at [facility] when it was noted that the patient had a infected right hip decubitus ulcer that was not improving. The patient reports that he had a PICC line placed over the weekend and IV antibiotics were started at [facility] today. The patient was assessed by the rehab physician who felt that the patient needed to be transferred back to [facility] for further treatment of the infected wound. The patient reports that he has been eating normally and states that he feels like he does not need his PEG tube anymore . The patient was previously hospitalized at [facility] from January 17 to February 09 at which time he had a prolonged hospital stay and was being treated for an acute stroke complicated by aspiration pneumonia secondary to ESBL E coli as well as tracheostomy insertion and PEG tube placement. Following that hospitalization the patient was transferred to the [facility] in [place]. In the ER the patient was noted to have a temperature of 98.7 degrees with a blood pressure of 126/81 and a heart rate of 80. The patient complained of pain in his right hip but otherwise had no other complaints. PAST MEDICAL HISTORY: 1. History of aspiration pneumonia secondary to ESBL E coli. 2. History of cerebrovascular accident. 3. Gastritis. 4. Carotid artery stenosis . 5. Anemia of chronic disease. 6. Hepatic steatosis . 7. Hypertension. 8. Esophagitis. PAST SURGICAL HISTORY: 1. Bilateral ankle surgery. 2. Cervical fusion. 3. PEG tube placement in January 2019 . 4. Tracheostomy in January 2019. FAMILY HISTORY: Positive for PA and CVA. SOCIAL HISTORY: The patient is and lives alone. He quit smoking 30 years ago. He denies any alcohol usage. ALLERGIES: Eggs and mayonnaise. HOME MEDICATIONS: 1. Tylenol 650 mg oral every 4 p.r.n. for pain . 2. DuoNeb 3 mL inhaled every 4 hours. 3. Eliquis 2.5 mg oral twice a day. 4. Aspirin 325 mg oral daily. 5. Flexeril 10 mg p.o. at bedtime. 6. Cymbalta 30 mg oral daily. 7. [place] 10/325 one tab oral every 4 hours p.r.n. for pain. 8. Melatonin 6 mg oral at bedtime. 9. Lopressor 12.5 mg oral twice a day. 10. Protonix 40 mg p.o. daily 11. MiraLAX 1 packet oral daily. 12. Senokot 1 tab oral daily p.r.n. for constipation. REVIEW OF SYSTEMS: A 12-point review of systems has been performed, please refer to the history of present illness for pertinent positives and negatives. PHYSICAL EXAMINATION: VITAL SIGNS: Temperature 98.7 degrees, blood pressure 126/81, heart rate 80, respirations 16, O2 saturation 98% on room air. GENERAL: This is a chronically ill-appearing elderly male sitting up in on the stretcher in no acute distress. SKIN: Right hip the patient has a large un stageable decubitus ulcer that has a purulent discharge. HEENT: Normocephalic, atraumatic. PERRLA, EOMI, oral mucosa is moist. Trachea is midline. NECK: Supple . No JVD, no lymphadenopathy. HEART: S1, S2 normal. Regular rate and rhythm. LUNGS: Clear to auscultation bilaterally. No wheezing, no rales, no rhonchi. ABDOMEN: Positive bowel sounds. Soft, nontender, nondistended. EXTREMITIES: No peripheral edema, no cyanosis, no calf tenderness. Peripheral pulses palpable. NEURO: The patient is alert and oriented x4. No focal neurologic deficits noted. LABS: White blood cell count 7.7, hemoglobin 11, hematocrit 35, platelets 263,000. ABG pH of 7.48, pCO2 35, PO2 82. Sodium 138, potassium 3.7, chloride 99, CO2 26, BUN 9, creatinine 0.5, glucose 109, AST 14, ALT 9, alkaline phosphatase 67. Chest x-ray no acute disease. ASSESSMENT AND PLAN: 1. Infected right hip decubitus ulcer. Will order wound cultures and start the patient on broad- spectrum antibiotics. We will also consult ID and General Surgery for further recommendations. Wound Care has also been consulted. 2. History of cerebrovascular accident. The patient is on full-dose aspirin. 3. Hepatic steatosis. Aware. 4. Esophagitis. Continue on omeprazole. 5. History of carotid artery stenosis. Aware. 6. Hypertension. Stable. Will restart Lopressor and Norvasc. 7. Deep vein thrombosis prophylaxis. Will start the patient on heparin. cc: Ciarra Henry MD MTDD
[2019-04-12 06:38] LABS: BASO# 0.04 X1000 (0.0-0.2); BASO% 0.8 % (0.0-0.8); EOS# 0.19 X1000 (0.0-0.7); EOS% 3.8 % (0.0-10.0); HEMOGLOBIN 10.6 g/dL (14.0-18.0); LYMPH# 1.64 X1000 (1.2-3.4); LYMPH% 32.5 % (20.5-51.1); MCH 25.9 PG (27-31); MCHC 31.2 g/dL (33-37); MCV 82.9 FL (81-99); MONO# 0.41 X1000 (0.11-0.59); MONO% 8.1 % (1.7-9.3); MPV 10.6 FL (7.4-10.4); NEUT# 2.77 X1000 (1.4-6.5); NEUT% 54.8 % (42.2-75.2); PLT 217 X1000 (130-400); RDW 13.8 % (11.5-14.5); WBC 5.05 X1000 (4.8-10.8)
[2019-04-12 06:57] LABS: HEMOGLOBIN A1C 4.7 % (4.8-6.0)
[2019-04-12 07:02] LABS: AGAP 12; BUN 8 mg/dL (8-22); CALCIUM 9.2 mg/dL (8.8-10.2); CHLORIDE 99 mmol/L (98-107); COSMO 270; CREATININE 0.5 mg/dL (0.7-1.2); ESTIMATED GFR > 60; GLUCOSE 96 mg/dL (70-104); POTASSIUM 3.4 mmol/L (3.5-5.1); SODIUM 136 mmol/L (136-145); TCO2 25 mmol/L (25-35)
--- NOTE | 2019-04-12 07:55 | EKG Report ---
Test Performed on : 04/12/2019 07:29:07 AM Test Reason : dyspnea Blood Pressure : / mmHG Vent. Rate : 073 BPM Atrial Rate : 073 BPM P-R Int : 150 ms QRS Dur : 078 ms QT Int : 424 ms P-R-T Axes : 056 000 014 degrees QTc Int : 467 ms Normal sinus rhythm. Normal ECG When compared with ECG of 19-JAN-2019 11:50, Vent. rate has decreased BY 58 BPM Non-specific change in ST segment in Inferior leads ST no longer depressed in Lateral leads Confirmed by Fernanda ORTIZ, Anoop ([id number]) on 04/12/2019 8:34:24 AM
--- NOTE | 2019-04-12 08:01 | Diag Imaging Result Doc PS360 ---
EXAM: HIP 1 VIEW RIGHT INDICATION: R hip wound TECHNIQUE: One view COMPARISON: 01/17/2019 FINDINGS: There is no discrete fracture, dislocation, or significant intrinsic osseous lesion. No discrete bony erosion is identified. The visualized joint spaces are essentially unremarkable. There appears to be a superficial soft tissue ulceration at the lateral aspect of the hip. IMPRESSION: Soft tissue ulceration but no evidence of acute osseous abnormality. No radiographic evidence of osteomyelitis on the current study. Electronically signed by Shakeel Chris 04/12/2019 7:59 AM
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
[2019-04-12] MEDS ORDERED: PRILOSEC PO SCH (09:00)
[2019-04-12] MEDS ORDERED: COLACE PO SCH (09:00)
[2019-04-12] MEDS: XOPENEX NEB INH SCH ×2 (11:20→16:32)
[2019-04-12] MEDS: MAXIPIME 2 GM/NS 2 GM/100 ML IVPB IV SCH ×2 (11:32→21:05)
[2019-04-12] MEDS: MIRALAX PO SCH ×3 (11:34→21:16)
[2019-04-12] MEDS: VITAMIN D PO SCH (11:34)
[2019-04-12] MEDS: ASPIRIN PO SCH (11:34)
[2019-04-12] MEDS: NORCO-7.5 PO PRN ×3 (11:34→21:03)
[2019-04-12] MEDS: VANCOMYCIN 1,700 MG in NS 250 ML IV SCH ×2 (11:35→23:56)
[2019-04-12] MEDS: CYMBALTA PO SCH (11:35)
[2019-04-12] MEDS: LOPRESSOR PO SCH ×2 (11:35→21:06)
[2019-04-12] MEDS: NORVASC PO SCH (11:35)
[2019-04-12] MEDS: NS 1,000 ML IV SCH ×2 (15:48→15:50)
--- NOTE | 2019-04-12 19:17 | GENERAL SURGERY CONSULTATION ---
DATE: 04/12/2019 REASON FOR CONSULTATION: Decubitus wound. CHIEF COMPLAINT: Right hip wound. HISTORY OF PRESENT ILLNESS: This is a 58-year-old gentleman with recent stroke. He developed left hemiparesis, was down in his home for quite some time and developed a right greater trochanteric decubitus wound. He has been at rehab. They were concerned about the wound. He was started on antibiotics there apparently and was transferred for this. He has a history of aspiration pneumonia. He has had a tracheostomy and PEG tube in the past. I was consulted regarding the wound. MEDICAL HISTORY: Recent cerebral vascular accident, carotid artery stenosis, anemia of chronic disease, hypertension, esophagitis, hepatic steatosis, history of aspiration pneumonia. SURGICAL HISTORY: Ankle surgery, cervical fusion, PEG tube, tracheostomy. FAMILY HISTORY: SC and CVA. SOCIAL HISTORY: He quit smoking 30 years ago. Denies alcohol. He is . He lives by himself but has resided in rehab recently. MEDICATIONS: He does take an aspirin and Eliquis. REVIEW OF SYSTEMS: Ten-point review of systems negative otherwise than what is mentioned in HPI. PHYSICAL EXAMINATION: Vital signs: Currently, he is afebrile, pulse 83, blood pressure 121/72, oxygen saturation 100%. General: He is chronically ill-appearing but in no acute distress. HEENT: No scleral icterus. Cardiovascular: Normal rate. Pulmonary: No increased work of breathing. Abdomen: Soft. Integument: Warm and dry. Psychiatric: Appropriate affect. Neurologic: He has a dense left hemiparesis and some weakness on his right as well. Musculoskeletal: He has a greater trochanteric wound down to subcutaneous fat on the right. There is some fibrinous tissue but no hugh purulence. No cellulitis. No obvious necrosis. LABORATORY DATA: White count is normal at 5, hematocrit is 34, creatinine is 0.5. His albumin is 3.5. Hemoglobin A1c is 4.7. ASSESSMENT AND PLAN: This is a 58-year-old gentleman with decubitus wound and right greater trochanteric wound. He is fed by a gastric tube. Would recommend Santyl offloading. He may ultimately need surgical debridement of this wound but will follow him along in the next day or 2. He does have some electrolyte derangements. cc: Vonda Beebe MD
[2019-04-12] MEDS ORDERED: XOPENEX NEB INH PRN (19:40)
--- NOTE | 2019-04-12 20:44 | PROGRESS NOTE ---
DATE: 04/12/2019 INTERVAL HISTORY: No acute events overnight. His vitals were unremarkable. His low potassium is currently being repleted. Mr. Jose states that he has been taking by mouth, and he is not using the PEG tube. VITAL SIGNS: Temperature 98.6, pulse 83, respiratory 20, blood pressure 125/81, saturating 96% on room air. He had a choking episode while eating a dinner roll today, which is not common; however, he states that normally he is able to take solid food without any difficulty. PHYSICAL EXAMINATION: HEENT: Oral cavity is moist. Lungs: Air entry bilaterally equal. No wheeze, rhonchi, crackles. Cardiovascular: S1, S2 normal. No murmur or gallop. Abdomen: Soft, nontender. Active bowel sounds. He has no lower extremity edema. Skin: He has a PEG tube, a tracheostomy wound which is healing, left-sided arm PICC line. Neurologic: He is alert and oriented x3. He is able to raise the right upper and lower extremities above ground level. He is able to flex the left lower extremity at the hip, knee and ankle joint and is able to wiggle his toes. However, his power is 2/5 to 3/5 in the left upper extremity. He is only able to wiggle his fingers a little bit. He does have hyperalgesia of his left hand, and he has hyperreflexia of the left knee. I could not appreciate plantar reflexes appropriately because of pain. LABS: Suggestive of normocytic anemia. He does have hypokalemia. Normal kidney function. No positive microbiological data so far. Hip x-ray performed today suggests soft tissue ulceration, but without evidence of acute osseous abnormality and no radiographic evidence of osteomyelitis. ASSESSMENT AND PLAN: 1. Right hip decubitus ulcer. Follow up wound culture and blood culture results. Continue intravenous vancomycin and cefepime. Appreciate Surgical and Infectious Disease recommendations. 2. History of cerebrovascular accident status post tracheostomy and percutaneous endoscopic gastrostomy. Currently, patient is breathing well on room air and tolerating diet orally. I will keep him on aspirin. I will keep him on enoxaparin for deep venous thrombosis prophylaxis. He is not listed to be taking any statin, which I will start him on. 3. Hypokalemia, currently being repleted. 4. Esophagitis. Continue proton pump inhibitors. 5. History of thrombosis of right carotid artery. Aware. 6. Essential hypertension. Continue home amlodipine and metoprolol. 7. Deep venous thrombosis prophylaxis with enoxaparin. DISPOSITION: Continue to monitor patient inside the hospital as we await further surgical recommendations. Plan of care discussed with the patient. His questions have been answered. cc: Sai Garcia MD
[2019-04-12] MEDS: LIPITOR PO SCH (21:03)
[2019-04-12] MEDS: KLOR-CON PO SCH (21:03)
[2019-04-12] MEDS: FLEXERIL PO SCH (21:04)
[2019-04-12] MEDS: MELATONIN PO SCH (21:05)
[2019-04-13] MEDS: NORCO-7.5 PO PRN ×5 (00:22→20:43)
[2019-04-13] MEDS: KLOR-CON PO SCH (00:22)
[2019-04-13 07:04] LABS: BASO# 0.04 X1000 (0.0-0.2); BASO% 0.8 % (0.0-0.8); EOS# 0.23 X1000 (0.0-0.7); EOS% 4.8 % (0.0-10.0); HEMATOCRIT 33.4 % (42.0-52.0); HEMOGLOBIN 10.5 g/dL (14.0-18.0); IMM GRAN# 0.02 X1000 (0.0-0.04); IMM GRAN% 0.4 % (0.0-0.5); LYMPH# 1.71 X1000 (1.2-3.4); LYMPH% 35.8 % (20.5-51.1); MCH 26.2 PG (27-31); MCHC 31.4 g/dL (33-37); MCV 83.3 FL (81-99); MONO% 8.4 % (1.7-9.3); NEUT# 2.38 X1000 (1.4-6.5); NEUT% 49.8 % (42.2-75.2); PLT 210 X1000 (130-400); RBC 4.01 XMIL (4.7-6.1); RDW 13.8 % (11.5-14.5); WBC 4.78 X1000 (4.8-10.8)
[2019-04-13 07:26] LABS: AGAP 11; BUN 9 mg/dL (8-22); CHLORIDE 104 mmol/L (98-107); COSMO 276; CREATININE 0.5 mg/dL (0.7-1.2); ESTIMATED GFR > 60; GLUCOSE 93 mg/dL (70-104); POTASSIUM 4.2 mmol/L (3.5-5.1); SODIUM 139 mmol/L (136-145); TCO2 24 mmol/L (25-35)
[2019-04-13] MEDS: LOPRESSOR PO SCH ×2 (08:56→20:44)
[2019-04-13] MEDS: VITAMIN D PO SCH (08:56)
[2019-04-13] MEDS: NORVASC PO SCH (08:56)
[2019-04-13] MEDS: ASPIRIN PO SCH (08:56)
[2019-04-13] MEDS: LOVENOX SUBQ SCH (08:56)
[2019-04-13] MEDS: CYMBALTA PO SCH (08:57)
[2019-04-13] MEDS: MAXIPIME 2 GM/NS 2 GM/100 ML IVPB IV SCH ×2 (08:57→20:44)
[2019-04-13] MEDS: VANCOMYCIN 1,700 MG in NS 250 ML IV SCH (11:04)
--- NOTE | 2019-04-13 11:06 | INFECTIOUS DISEASE PROGRESS NO ---
DATE: 04/13/2019 PRESENT ILLNESS: The patient has an infected right hip decubitus ulcer. I talked with the patient, and he would like to have his G-tube removed while he is in the hospital. MEDICATIONS: The patient is on a combination of cefepime and vancomycin. PHYSICAL EXAMINATION: Vital Signs: Temperature is 97.8 degrees, pulse 72, respirations 15, blood pressure 132/74. General: This is a somewhat ill-appearing, middle-aged male. He is in no acute distress. HEENT: He can hear my spoken words and see near objects. There is no white coating on his tongue. Neck: No pain with movement. Lungs: Clear to auscultation. Cardiovascular: Regular heart rate. Abdomen: Soft and nontender. The patient has a G-tube in place. The site is not erythematous or purulent. Extremities: The patient has a PICC in his left arm. That site also is not erythematous or purulent. Neurologic: The patient is alert. He has a left hemiplegia. There is no tremor. Integument: The patient has a large decubitus ulcer on the right hip. The tissue that is present looks to be devitalized. It has got a brownish black color and it is very firm. It is tender when I push the wound also. IMAGING AND LABORATORY DATA: X-ray of the hip shows no evidence of osteomyelitis. Culture of the hip is growing a gram-negative branden. Blood cultures are negative. Creatinine is 0.5. GFR is greater than 60. CBC shows a white count of 4780, hemoglobin 10.5, and platelet count is 210,000. ASSESSMENT AND PLAN: As regarding the patient's hip decubitus ulcer, I am going to continue cefepime, but discontinue vancomycin. I had a discussion with the patient about his gastrostomy tube. He told me that he does not use it anymore, and he eats well, taking his food by mouth, and he wants the tube out. I have put a consult in for Dr. Hernandez, who is personal banker tomorrow, to take the tube out. COMORBIDITIES: The patient had a stroke. He also has anemia of chronic disease, gastroesophageal reflux disease, esophagitis, and gastritis. cc: Mansoor Chamberlain MD
--- NOTE | 2019-04-13 12:03 | GENERAL SURGERY PROGRESS NOTE ---
DATE: 04/13/2019 SUBJECTIVE: No real complaints. PHYSICAL EXAMINATION: Vitals: He is afebrile. Pulse is 72, blood pressure 132/74. General: He is alert. Cardiovascular: Normal rate. Skin: His right hip wound is stable. There is eschar type change centrally, but no cellulitis, no purulence. No hugh necrosis. ASSESSMENT AND PLAN: This is a gentleman with decubitus wounds, right greater trochanteric hip. We will start enzymatic debridement. It is unclear if this has been initiated or not, with Vashe dressings, changing those twice a day, and he will need strict offloading, and nutritional support. cc: Vonda Beebe MD
[2019-04-13] MEDS: MIRALAX PO SCH ×2 (12:55→20:45)
[2019-04-13] MEDS: SANTYL OINT TOP SCH (13:48)
--- NOTE | 2019-04-13 15:22 | PROGRESS NOTE ---
DATE: 04/13/2019 INTERVAL HISTORY: No acute events overnight. SUBJECTIVE: Mr. Jose has not had any choking episode anymore. He wanted his PEG tube to be removed since his oral intake is adequate, for which GI has been consulted. VITALS: Temperature of 97.4 degrees, pulse 76, respiratory rate 18, blood pressure 112/78 saturating 95% on room air. Mr. Jose is not in any acute distress. PHYSICAL EXAMINATION: Mouth: Oral cavity is moist. Lungs: Air entry bilaterally equal. No wheeze, rhonchi, or crackles. He has PEG tube tracheostomy wound, which is healing. Left-sided arm PICC line. Neurologic: He is alert and oriented x3. Extremities: On examination of his right thigh, he has about 10 x 5 cm ulcer with a rolled in-margin which is extending up to his muscle layer, is growing gram-negative rods. LABS: WBC of 4.7, hemoglobin 10.5, platelet of 210. Normal electrolytes. MICROBIOLOGY: No positive microbiological data, except wound culture which is growing gram- negative rods. ASSESSMENT AND PLAN: 1. Right hip decubitus ulcer. Continue wound dressing with Vashe per surgical team's recommendation. Continue intravenous cefepime. His vancomycin has been discontinued. 2. History of cerebrovascular accident status post tracheostomy and percutaneous endoscopic gastrostomy. He is currently breathing well on room air through nose. The patient is also taking adequate by mouth. Continue enoxaparin for deep vein thrombosis prophylaxis, and continue him on atorvastatin and aspirin, which are his home medications. He was also taking Eliquis at home. 3. Esophagitis. Continue proton pump inhibitors; history of right carotid artery thrombosis currently stable; continue amlodipine, metoprolol for essential hypertension. 4. His hypokalemia is repleted. DISPOSITION: Continue to monitor the patient inside the hospital as we await further surgery recommendations. Plan of care discussed with him. All questions have been answered. cc: Sai Garcia MD
[2019-04-13] MEDS: FLEXERIL PO SCH (20:44)
[2019-04-13] MEDS: LIPITOR PO SCH (20:44)
[2019-04-13] MEDS: MELATONIN PO SCH (20:44)
[2019-04-14] MEDS: NORCO-7.5 PO PRN ×5 (01:20→22:03)
[2019-04-14 07:10] LABS: AGAP 14; BUN 8 mg/dL (8-22); CALCIUM 8.9 mg/dL (8.8-10.2); CHLORIDE 98 mmol/L (98-107); COSMO 273; CREATININE 0.5 mg/dL (0.7-1.2); ESTIMATED GFR > 60; GLUCOSE 111 mg/dL (70-104); POTASSIUM 3.5 mmol/L (3.5-5.1); SODIUM 137 mmol/L (136-145); TCO2 25 mmol/L (25-35)
[2019-04-14] MEDS: MAXIPIME 2 GM/NS 2 GM/100 ML IVPB IV SCH (09:50)
[2019-04-14] MEDS: ASPIRIN PO SCH (09:50)
[2019-04-14] MEDS: LOVENOX SUBQ SCH (09:51)
[2019-04-14] MEDS: NORVASC PO SCH (09:51)
[2019-04-14] MEDS: VITAMIN D PO SCH (09:51)
[2019-04-14] MEDS: MIRALAX PO SCH ×2 (09:51→21:30)
[2019-04-14] MEDS: LOPRESSOR PO SCH ×2 (09:51→21:29)
[2019-04-14] MEDS: CYMBALTA PO SCH (09:52)
[2019-04-14] MEDS: SANTYL OINT TOP SCH (09:52)
--- NOTE | 2019-04-14 13:13 | GASTROENTEROLOGY CONSULTATION ---
DATE: 04/14/2019 REASON FOR CONSULTATION: Removal of PEG tube. HISTORY OF PRESENT ILLNESS: Mr. Jose is a 58-year-old male, who has a history of aspiration pneumonia secondary to E coli, gastritis, carotid artery stenosis, CVA, hepatic steatosis. The patient was admitted on 04/11/2019. He came from [facility] due to an infected right hip decubitus ulcer. The patient mentioned that he had a PICC line placed over the weekend and was receiving antibiotics at [facility]. The patient reports that he can eat normally and wants his PEG tube to be removed. The patient was admitted recently on 01/17 to the hospital and GI was consulted on 02/07 for a PEG tube placement. He was in the hospital with CVA, dysphagia and a trach collar. An endoscopy was done on 02/08/2019. The patient had esophagitis at the [facility], gastritis in the gastric antrum and gastric body. Biopsies were performed at that time and a PEG tube was placed without any complications. The biopsy results revealed chronic inactive gastritis and negative H-pylori. The patient's wound culture has shown positive WBC, gram negative branden and E- coli, his blood cultures had no growth. 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 He has denied any nausea, vomiting, and he has mentioned having positive bowel movements yesterday. The patient's chest x-ray on 04/11 had shown that he has no evidence of an acute disease. His hip x-ray on 04/12 had shown soft tissue ulceration, but no evidence of acute osseous abnormalities and no radiographic evidence of osteomyelitis on the current study. PAST MEDICAL HISTORY: History of aspiration pneumonia secondary to E coli, CVA, gastritis, esophagitis, hypertension, hepatic steatosis, anemia of chronic disease, carotid artery stenosis. PAST SURGICAL HISTORY: Bilateral ankle surgeries, cervical fusion, PEG tube placement in January, tracheostomy in January. ALLERGIES: Eggs, chicken and mayonnaise. FAMILY HISTORY: Positive for stroke and heart attack. SOCIAL HISTORY: The patient is , lives alone. He was a past smoker and has denied any alcohol or illicit drug use. HOME MEDICATIONS: Aspirin 325 mg daily, amlodipine besylate 5 mg p.o. daily, Eliquis 2.5 mg twice a day, cyclobenzaprine 10 mg at bedtime, Cymbalta 30 mg p.o. daily, melatonin 6 mg p.o. at bedtime, metoprolol 12.5 mg p.o. bedtime, Protonix 40 mg daily, vitamin D 3 one tablet daily, hydrocodone/acetaminophen 10/325 one tablet every 4 hours as needed, Benefiber 1 packet p.o. daily. REVIEW OF SYSTEMS: As per HPI. Otherwise, 12 point review of system is negative. PHYSICAL EXAMINATION: Vital Signs: 98.9 temperature, pulse 107, respirations 16, blood pressure 137/83, oxygen saturation 97% on room air. The patient's weight is 175 pounds. BMI is 27.5 kg/m2. General: He is alert, oriented x2, and in no acute distress. HEENT: Pale conjunctivae, no icterus. PERRL. Neck: Supple. Lungs: Wheezing heard in the upper anterior lobes. Cardiovascular: Patient is tachycardic. Abdomen: Soft, nontender, nondistended. PEG tube in the left upper quadrant with redness around the tube. Active bowel sounds heard in all 4 quadrants. Extremities: The patient has left-sided weakness. No clubbing, no cyanosis. Generalized edema in the lower extremities. Neurologic: Alert and oriented x3. Nonfocal. Cranial nerves 2-12 grossly intact. LABORATORY DATA: Hematology is from 04/13. WBC is 4.78, RBCs 4.01, hemoglobin is 10.5, hematocrit is 33.4, platelet count is 210. Sodium is 137, potassium is 3.5, chloride is 98, carbon dioxide 25, anion gap 14. BUN is 8, creatinine is 0.5, glucose is 111, calcium is 8.9. IMPRESSION AND PLAN: CVA and dysphagia s/p PEG placement Right hip ulcer Esophagitis Hypertension Hypokalemia PLAN: Mr. Jose is a 58 year old male with the history of CVA, PEG placement and right hip ulcer. GI has been consulted to remove his PEG tube. We have talked to the patient and he has agreed to get his PEG tube removed as an outpatient unless there are concerns for any complication like PEG tube site infection and Dr. Chamberlain is also on board with this plan. Patient is being followed by surgery and Infectious disease. The patient is currently receiving antibiotic Invanz per ID and bacitracin ointment to be put around his PEG tube. We had started him on Miralax 17 g BID for his bowel regimen. Patient is on potassium 40 meq for his hypokalemia per PCP. We will continue to provide supportive care to the patient and follow the plan of care per PCP, surgeon and ID. This plan was discussed with Dr. Hernandez. Please call us for any further questions or concerns. Dictated by GIOVANA Dawn for Willian Hernandez MD cc: Willian Hernandez MD I have seen and examined the patient myself and I agree with the above plan of care. I have discussed the above with the patient and all questions were answered. Please call us with any further questions. CLAIRE
--- NOTE | 2019-04-14 14:39 | INFECTIOUS DISEASE PROGRESS NO ---
DATE: 04/14/2019 PRESENT ILLNESS: Mr. Jose has an infected right hip decubitus ulcer which has grown an extended spectrum beta lactamase producing Escherichia coli. MEDICATIONS: He has been receiving cefepime 2 g IV every 12 hours, which we will stop today. PHYSICAL EXAMINATION: Vital Signs: Temperature 98.9 degrees, pulse rate 107, respiratory rate 16, blood pressure 110/73, and O2 saturation is 97% on room air. General: This is a chronically ill-appearing, middle-aged gentleman. He is lying in the bed in the bed currently in no acute distress. HEENT: Atraumatic, normocephalic. Oral mucous membranes are pink and moist. Conjunctivae are pink. Neck: Supple. Trachea is midline. Cardiovascular: Heart rate is regular. S1-S2 noted. Respiratory: Lung sounds are bilaterally clear to auscultation. Diminished in the bases. No work of breathing is noted. Abdomen: Soft, round and nontender. Nondistended. Bowel sounds are active. There is a gastrostomy tube in place with very mild erythema. No purulent drainage noted. Integumentary: Skin is warm and dry. There is a dressing in place to the right hip which was not removed at this time. The left arm has a PICC line with the site free of edema, erythema or drainage. Neurologic: He is awake and alert, and left upper extremity appears to be flaccid. He is able to use left lower extremity with weakness noted. LABORATORY AND X-RAY: No CBC today. His creatinine is 0.5 with an estimated GFR of greater than 60. His right hip wound has grown an Escherichia coli which is extended spectrum beta lactamase producing. No imaging reports today. ASSESSMENT AND PLAN: Mr. Jose is being treated for an infected right hip decubitus ulcer. Today, we see that the culture has grown an ESBL producing E. Coli so we will stop the cefepime, and start him on ertapenem [address] Hernandez was in the room on my assessment of the patient. He would like to leave the gastrostomy tube for now, but will follow up with the patient as needed for removal in his office. Dr. Chamberlain agrees with this plan. COMORBIDITIES: Include stroke with gastroesophageal reflux disease, esophagitis, gastritis, and anemia of chronic disease. Dictated by GIOVANA Medina for Mansoor Chamberlain MD cc: Mansoor Chamberlain MD MTDD
[2019-04-14] MEDS: BACITRACIN OINTMENT TOP SCH (14:49)
[2019-04-14] MEDS: INVANZ 1 GM/NS 1 GM/50 ML IVPB IV SCH (14:49)
[2019-04-14] MEDS: KLOR-CON PO SCH ×2 (17:28→21:28)
--- NOTE | 2019-04-14 18:02 | PROGRESS NOTE ---
DATE: 04/14/2019 INTERVAL HISTORY: No acute events overnight. Mr. Jose denies any complaints. We discussed about ESBL E. coli and its pathogenesis. I answered all of his questions. He was wondering if he had atrial fibrillation. I look at the bedside telemetry and he has sinus tachycardia. OBJECTIVE: Currently temperature of 98.9 degrees, pulse 107, respiratory rate 16, blood pressure 137/83. He is saturating 97% on room air. On physical examination not in acute distress. Oral cavity is moist. Air entry bilaterally equal. No wheeze, rhonchi, crackles. S1, S2 normal. No murmur, rub or gallop. Sinus tachycardia. Abdomen is soft, nontender. No lower extremity edema. On my previous examination he had an about 10 x 5 cm ulcer with rolled-in margin, extending up to the muscle layer on the right upper lateral thigh. On neurological examination he is alert and oriented x3. He is not able to move his left upper extremity. He is able to wiggle toes and have some movement in left lower extremity. Movements are intact in right upper and lower extremity. LABORATORY DATA: No CBC today. BMP suggestive of hypokalemia, normal kidney function. Microbiology: Wound culture is growing ESBL E. coli. DIAGNOSTIC DATA: Hip x-ray in the past had soft tissue ulceration without any evidence of acute osseous abnormality or radiographic evidence of osteomyelitis. ASSESSMENT AND PLAN: 1. Right lateral thigh decubitus ulcer. He had developed this ulcer about 2 months ago, when he had a large stroke and he was on the floor in the same body position for several hours. Continue wound dressing with Vashe per surgical team's recommendation. His antibiotic has been changed to intravenous ertapenem for extended-spectrum beta-lactamase Escherichia coli infection. I will appreciate Surgery care team's recommendation about need for surgical wound debridement in future. 2. History of cerebrovascular accident, status post tracheostomy and percutaneous endoscopic gastrostomy tube. He is breathing well on room air through nose and taking adequate oral intake by mouth. I will continue enoxaparin for deep venous thrombosis prophylaxis, aspirin and atorvastatin. I will resume his Eliquis, the indication of which is not entirely clear to me once surgical plans are made definitively. 3. History of esophagitis. Continue proton pump inhibitors. 4. He does have history of right carotid artery thrombosis; essential hypertension for which I will continue amlodipine and metoprolol. 5. Disposition: I will continue to monitor the patient inside the hospital. Rehab referrals have been made by [employer] team. Awaiting insurance approval. Disposition to be decided based on surgical team's recommendations. cc: Sai Garcia MD
[2019-04-14] MEDS: MELATONIN PO SCH (21:28)
[2019-04-14] MEDS: LIPITOR PO SCH (21:29)
[2019-04-14] MEDS: FLEXERIL PO SCH (21:29)
[2019-04-15] MEDS: NORCO-7.5 PO PRN ×5 (01:23→23:19)
[2019-04-15] MEDS: ASPIRIN PO SCH (10:01)
[2019-04-15] MEDS: VITAMIN D PO SCH (10:01)
[2019-04-15] MEDS: NORVASC PO SCH (10:01)
[2019-04-15] MEDS: SANTYL OINT TOP SCH (10:01)
[2019-04-15] MEDS: LOVENOX SUBQ SCH (10:02)
[2019-04-15] MEDS: MIRALAX PO SCH ×2 (10:02→22:24)
[2019-04-15] MEDS: BACITRACIN OINTMENT TOP SCH (10:03)
[2019-04-15] MEDS: LOPRESSOR PO SCH ×2 (10:03→22:24)
[2019-04-15] MEDS: CYMBALTA PO SCH (10:03)
--- NOTE | 2019-04-15 11:10 | INFECTIOUS DISEASE PROGRESS NO ---
DATE: 04/15/2019 PRESENT ILLNESS: The patient has an extended-spectrum beta-lactamase producing Escherichia coli infected right hip decubitus ulcer. MEDICATIONS: The patient is receiving ertapenem. This was started yesterday and cefepime was discontinued. PHYSICAL EXAMINATION: Vital Signs: Temperature is 98.5 degrees, pulse 78, respirations 18, blood pressure is 134/74. General: This is a chronically ill-appearing, middle-aged male. He is lying in bed. He has no tremor. He is in no acute distress. Head/eyes/ears/nose/throat: He can hear my spoken words and see near objects. He does not have any white patches on his tongue. Neck: No pain with movement. Lungs: Clear to auscultation. Cardiovascular: Heart rate is regular. Abdomen: Soft and nontender. G-tube is in place. There is no erythema or purulence. Neurologic: The patient is alert today. He has a left hemiplegia. Extremities: The patient has a PICC in his right arm. The site is not erythematous or purulent. LABORATORY AND X-RAY: The is no new lab or x-ray for today. ASSESSMENT AND PLAN: Patient has an infected right hip decubitus ulcer. My plan is to continue ertapenem. The patient has decided to leave the gastrostomy tube in place instead of pulling it out as he had earlier said he wanted to do. COMORBIDITIES: The patient has had a stroke. He also has gastroesophageal reflux disease, anemia of chronic disease, esophagitis, and gastritis. cc: Mansoor Chamberlain MD
--- NOTE | 2019-04-15 11:13 | INFECTIOUS DISEASE PROGRESS NO ---
DATE: 04/15/2019 ADDENDUM REPORT I forgot to mention on the physical exam of the patient how his right hip wound looks. the decubitus ulcer is the same size. The tissue seen is devitalized. There is no odor or drainage coming from the wound. cc: Mansoor Chamberlain MD
[2019-04-15] MEDS: INVANZ 1 GM/NS 1 GM/50 ML IVPB IV SCH (15:42)
--- NOTE | 2019-04-15 20:04 | PROGRESS NOTE ---
DATE: 04/15/2019 INTERVAL HISTORY: No acute events overnight. SUBJECTIVE: Mr. Jose denies any new complaints. We discussed about his vitals, exam findings, and search for rehab. We discussed about my discussion with the surgical team about possible surgical debridement early next week versus outpatient follow-up. He states he would like to go home before going to the rehab. VITALS: Temperature 98.5 degrees, pulse 70, respiratory 18, blood pressure 120/89 and saturating 100% on room air. PHYSICAL EXAMINATION: Not in any acute distress. Oral cavity is moist.Lungs: Air entry bilaterally equal. No wheeze, rhonchi, crackles. Cardiovascular: S1, S2 normal. No murmur or gallop. Abdomen: Soft, nontender. Extremities: No lower extremity edema. He has right lateral thigh ulcer which is dressed. LABORATORY: No CBC or BMP today. Magnesium is 1.7. No new microbiological data except urine culture which was collected today morning. ASSESSMENT AND PLAN: 1. Right lateral thigh decubitus ulcer with ESBL E. Coli infection. 2. History of cerebrovascular accident status post trach and PEG now breathing well on room air and eating by mouth. 3. History of esophagitis. 4. History of right carotid artery thrombosis. PLAN: 1. Continue him on aspirin, statin, and enoxaparin for DVT prophylaxis. 2. Continue metoprolol for blood pressure, and add hydrochlorothiazide/lisinopril as tolerated. 3. I had a detailed discussion with surgical team about his wound, and I was recommended that if the patient finds a rehab bed early next week, he could probably be discharged to rehab with outpatient surgical follow-up with his wound with antibiotics. However, if patient remains in the hospital in the early part of the week, then surgical team would become more aggressive and debride his wound before he could be discharged. I discussed this plan of care with the patient. I answered all of his questions. cc: Sai Garcia MD
[2019-04-15] MEDS: DULCOLAX PR SCH (22:23)
[2019-04-15] MEDS: MELATONIN PO SCH (22:25)
[2019-04-15] MEDS: FLEXERIL PO SCH (22:25)
[2019-04-15] MEDS: LIPITOR PO SCH (22:25)
[2019-04-16] MEDS: NORCO-7.5 PO PRN ×4 (06:34→20:57)
[2019-04-16 07:17] LABS: BASO# 0.02 X1000 (0.0-0.2); BASO% 0.7 % (0.0-0.8); EOS# 0.11 X1000 (0.0-0.7); EOS% 3.6 % (0.0-10.0); HEMATOCRIT 35.8 % (42.0-52.0); HEMOGLOBIN 11.3 g/dL (14.0-18.0); LYMPH# 0.93 X1000 (1.2-3.4); LYMPH% 30.7 % (20.5-51.1); MCHC 31.6 g/dL (33-37); MCV 82.3 FL (81-99); MONO# 0.53 X1000 (0.11-0.59); MONO% 17.5 % (1.7-9.3); NEUT# 1.44 X1000 (1.4-6.5); NEUT% 47.5 % (42.2-75.2); PLT 157 X1000 (130-400); RBC 4.35 XMIL (4.7-6.1); RDW 14.3 % (11.5-14.5); WBC 3.03 X1000 (4.8-10.8)
[2019-04-16 07:22] LABS: AGAP 16; BUN 11 mg/dL (8-22); CALCIUM 9.1 mg/dL (8.8-10.2); CHLORIDE 96 mmol/L (98-107); COSMO 273; CREATININE 0.4 mg/dL (0.7-1.2); ESTIMATED GFR > 60; GLUCOSE 89 mg/dL (70-104); MAGNESIUM 1.7 mg/dL (1.5-2.7); SODIUM 137 mmol/L (136-145); TCO2 25 mmol/L (25-35)
[2019-04-16] MEDS: MIRALAX PO SCH ×2 (09:06→20:56)
[2019-04-16] MEDS: LOVENOX SUBQ SCH (09:06)
[2019-04-16] MEDS: NORVASC PO SCH (09:06)
[2019-04-16] MEDS: ASPIRIN PO SCH (09:06)
[2019-04-16] MEDS: LOPRESSOR PO SCH ×3 (09:06→23:50)
[2019-04-16] MEDS: CYMBALTA PO SCH (09:07)
[2019-04-16] MEDS: VITAMIN D PO SCH (09:07)
[2019-04-16] MEDS: DULCOLAX PR SCH ×2 (09:21→20:55)
[2019-04-16] MEDS: BACITRACIN OINTMENT TOP SCH (11:30)
[2019-04-16] MEDS: SANTYL OINT TOP SCH (11:30)
[2019-04-16] MEDS: INVANZ 1 GM/NS 1 GM/50 ML IVPB IV SCH (13:54)
--- NOTE | 2019-04-16 19:45 | PROGRESS NOTE ---
DATE: 04/16/2019 INTERVAL HISTORY: No acute events overnight. Mr. Jose appears a little anxious and agitated today, but he does not tell me why exactly he is anxious. He states he did not like the food and he has not eaten his dinner. He answers questions and follows commands. OBJECTIVE: Current vital signs: Temperature 98 degrees, pulse 90, respiratory rate 17, blood pressure 130/77, saturating 96% on room air. On physical examination, not in acute distress. Oral cavity is moist. Air entry bilaterally equal. No wheeze, rhonchi or crackles. S1, S2 normal. No murmur, rub or gallop. Abdomen is soft, nontender. No lower extremity edema. Right lateral thigh ulcer, which is dressed. LABORATORY DATA: Labs suggestive of stable hemoglobin, platelet count and WBC count. Normal electrolytes. No microbiological data. DIAGNOSTIC DATA: No new imaging. ASSESSMENT: 1. Right lateral thigh decubitus ulcer with extended-spectrum beta-lactamase Escherichia coli infection. 2. History of cerebrovascular accident, status post tracheostomy and percutaneous endoscopic gastrostomy tube, now breathing well on room air and eating by mouth. 3. History of esophagitis. 4. History of right carotid artery thrombosis leading to cerebrovascular accident. PLAN: 1. Continue aspirin, statin and enoxaparin for DVT prophylaxis. 2. Continue metoprolol and hydrochlorothiazide/lisinopril for hypertension as tolerated. Currently his blood pressure is well controlled and I am holding his hydrochlorothiazide/lisinopril. 3. Continue local wound care. General surgical team on board. Decision about surgical debridement to be made based on rehab plans early next week. cc: Sai Garcia MD
[2019-04-16] MEDS: FLEXERIL PO SCH (20:55)
[2019-04-16] MEDS: LIPITOR PO SCH (20:56)
[2019-04-16] MEDS: MELATONIN PO SCH (20:56)
[2019-04-16 23:13] LABS: BASO# 0.02 X1000 (0.0-0.2); BASO% 0.5 % (0.0-0.8); EOS% 2.5 % (0.0-10.0); HEMOGLOBIN 11.6 g/dL (14.0-18.0); IMM GRAN# 0.02 X1000 (0.0-0.04); IMM GRAN% 0.5 % (0.0-0.5); LYMPH# 1.18 X1000 (1.2-3.4); LYMPH% 29.7 % (20.5-51.1); MCH 26.2 PG (27-31); MCHC 32.2 g/dL (33-37); MCV 81.3 FL (81-99); MONO# 0.52 X1000 (0.11-0.59); MONO% 13.1 % (1.7-9.3); MPV 10.9 FL (7.4-10.4); NEUT# 2.13 X1000 (1.4-6.5); NEUT% 53.7 % (42.2-75.2); PLT 165 X1000 (130-400); RBC 4.43 XMIL (4.7-6.1); RDW 14.2 % (11.5-14.5); WBC 3.97 X1000 (4.8-10.8)
[2019-04-16 23:25] LABS: PROTIME 13.3 Seconds (11.0-16.0)
[2019-04-16 23:26] LABS: PTT 35.8 Seconds (22.3-41.8)
[2019-04-17 00:04] LABS: AGAP 14; ALB/GLOB RATIO 1.2; ALBUMIN 3.8 g/dL (3.5-5.0); ALKALINE PHOSPHATASE 62 U/L (32-122); BUN 13 mg/dL (8-22); CALCIUM 8.6 mg/dL (8.8-10.2); CHLORIDE 93 mmol/L (98-107); CK PROFILE 24 U/L (24-204); COSMO 266; CREATININE 0.4 mg/dL (0.7-1.2); ESTIMATED GFR > 60; GLUCOSE 96 mg/dL (70-104); GOT 28 U/L (10-34); GPT 23 U/L (10-44); SODIUM 133 mmol/L (136-145); TCO2 26 mmol/L (25-35); TOTAL BILIRUBIN 0.17 mg/dL (0.20-1.00)
[2019-04-17] MEDS: NORCO-7.5 PO PRN ×5 (01:06→21:57)
--- NOTE | 2019-04-17 07:28 | Diag Imaging Result Doc PS360 ---
EXAM: CHEST-1 VIEW 04/16/2019 HISTORY: Sepsis Protocol TECHNIQUE: AP portable upright at 2239 COMMENT: There is a PICC line on the left with its tip in the superior vena cava. There is no evidence of acute cardiac or pulmonary disease. Compared to 04/11/2019 there has been no significant change. IMPRESSION: Stable chest. Electronically signed by Simone Phillips 04/17/2019 7:26 AM
[2019-04-17] MEDS: VITAMIN D PO SCH (09:18)
[2019-04-17] MEDS: NORVASC PO SCH (09:18)
[2019-04-17] MEDS: ASPIRIN PO SCH (09:18)
[2019-04-17] MEDS: LOPRESSOR PO SCH ×2 (09:19→20:24)
[2019-04-17] MEDS: CYMBALTA PO SCH (09:19)
[2019-04-17] MEDS: DULCOLAX PR SCH ×2 (09:21→20:22)
[2019-04-17] MEDS: LOVENOX SUBQ SCH (09:21)
[2019-04-17] MEDS: MIRALAX PO SCH ×2 (10:45→20:23)
[2019-04-17] MEDS: BACITRACIN OINTMENT TOP SCH (11:07)
[2019-04-17 13:14] LABS: URINE SOURCE CLEAN CATCH
[2019-04-17 13:19] LABS: BILIRUBIN URINE NEGATIVE (NEGATIVE); BLOOD URINE NEGATIVE (NEGATIVE); COLOR YELLOW; GLUCOSE URINE NEGATIVE (NEGATIVE); KETONE URINE TRACE mg/dL (NEGATIVE); LEUKOCYTES URINE NEGATIVE (NEGATIVE); NITRITE URINE NEGATIVE (NEGATIVE); PH URINE 5.5; PROTEIN URINE TRACE mg/dL (NEGATIVE); SP GRAVITY URINE 1.026; TURBIDITY URINE CLEAR (CLEAR); UROBILINOGEN URINE NORMAL (NORMAL)
[2019-04-17 13:20] LABS: UR EPITHELIAL CELLS <10 /HPF (<10); URINE BACTERIA NEGATIVE /HPF; URINE RBC <10 /HPF (<10); URINE WBC <10 /HPF (<10)
[2019-04-17] MEDS: SANTYL OINT TOP SCH (14:46)
[2019-04-17] MEDS: INVANZ 1 GM/NS 1 GM/50 ML IVPB IV SCH (14:49)
--- NOTE | 2019-04-17 17:46 | EKG Report ---
Test Performed on : 04/17/2019 4:46:04 PM Test Reason : Tachycardia. Royce weston MD if AFib is present.Thanks Blood Pressure : / mmHG Vent. Rate : 099 BPM Atrial Rate : 099 BPM P-R Int : 132 ms QRS Dur : 070 ms QT Int : 358 ms P-R-T Axes : 075 -09 003 degrees QTc Int : 459 ms Normal sinus rhythm. Minimal voltage criteria for LVH, may be normal variant Borderline ECG When compared with ECG of 12-APR-2019 07:29, No significant change was found Confirmed by Ankit ORTIZ, Jc Gordillo ([id number]) on 04/18/2019 9:29:10 AM
[2019-04-17] MEDS: MELATONIN PO SCH (20:23)
[2019-04-17] MEDS: LIPITOR PO SCH (20:24)
[2019-04-17] MEDS: FLEXERIL PO SCH (20:24)
[2019-04-18 07:32] LABS: BASO# 0.02 X1000 (0.0-0.2); BASO% 0.5 % (0.0-0.8); EOS# 0.12 X1000 (0.0-0.7); EOS% 3.1 % (0.0-10.0); HEMATOCRIT 37.7 % (42.0-52.0); HEMOGLOBIN 11.7 g/dL (14.0-18.0); IMM GRAN# 0.02 X1000 (0.0-0.04); IMM GRAN% 0.5 % (0.0-0.5); LYMPH% 38.4 % (20.5-51.1); MCH 25.4 PG (27-31); MONO# 0.51 X1000 (0.11-0.59); MPV 11.1 FL (7.4-10.4); NEUT# 1.74 X1000 (1.4-6.5); NEUT% 44.5 % (42.2-75.2); PLT 182 X1000 (130-400); RDW 14.3 % (11.5-14.5); WBC 3.91 X1000 (4.8-10.8)
[2019-04-18 08:12] LABS: AGAP 13; BUN 17 mg/dL (8-22); CALCIUM 8.6 mg/dL (8.8-10.2); CHLORIDE 98 mmol/L (98-107); COSMO 277; CREATININE 0.5 mg/dL (0.7-1.2); ESTIMATED GFR > 60; GLUCOSE 100 mg/dL (70-104); POTASSIUM 3.6 mmol/L (3.5-5.1); SODIUM 138 mmol/L (136-145); TCO2 27 mmol/L (25-35)
[2019-04-18] MEDS: VITAMIN D PO SCH (08:16)
[2019-04-18] MEDS: ASPIRIN PO SCH (08:16)
[2019-04-18] MEDS: LOPRESSOR PO SCH ×2 (08:16→20:24)
[2019-04-18] MEDS: NORVASC PO SCH (08:16)
[2019-04-18] MEDS: CYMBALTA PO SCH (08:17)
[2019-04-18] MEDS: NORCO-7.5 PO PRN ×3 (08:17→20:25)
[2019-04-18] MEDS: BACITRACIN OINTMENT TOP SCH (08:20)
[2019-04-18] MEDS: SANTYL OINT TOP SCH (08:21)
[2019-04-18] MEDS: LOVENOX SUBQ SCH (08:22)
[2019-04-18] MEDS: MIRALAX PO SCH (08:23)
[2019-04-18] MEDS: DULCOLAX PR SCH (08:23)
--- NOTE | 2019-04-18 12:52 | GASTROENTEROLOGY PROGRESS NOTE ---
DATE: 04/18/2019 SUBJECTIVE: Mr. Jose is a 58-year-old male resting in bed. He has denied any nausea, vomiting, or abdominal pain. OBJECTIVE: Vital Signs: Temperature 98.1 degrees, pulse 88, respirations 16, blood pressure 123/73, oxygen saturation 95%. He is on room air. The patient's weight is 177 pounds. BMI is 27.8 kg/m2. General: He is alert, oriented x3, and in no acute distress. HEENT: Pale conjunctivae. No icterus. PERRL. Neck: Supple. Lungs: Wheezing heard in the upper anterior lobes. Cardiovascular: Regular rate and rhythm. Abdomen: Soft, nontender, nondistended. PEG tube in the left upper quadrant with redness around the tube. Active bowel sounds heard in all 4 quadrants. Extremities: Left-sided weakness. No clubbing, no cyanosis. Generalized edema in the lower extremities. Neurologic: Alert and oriented x3. LABORATORY DATA: WBC are 3.91, RBC 4.60, hemoglobin 11.7, hematocrit is 37.7, platelet count is 182,000. Sodium 138, potassium 3.6, chloride 98, carbon dioxide 27, anion gap 13, BUN 17, creatinine 0.5, glucose is 100, calcium is 8.6. The patient's urinalysis yesterday showed a trace of protein and trace of ketones. Chest x-ray on 04/16/2019 showed stable chest. IMPRESSION AND PLAN CVA and dysphagia s/p PEG placement Possible PEG tube infection - mild redness at the PEG tube site Right hip ulcer Esophagitis Hypertension PLAN: Mr. Jose is a 58-year-old male with a history of CVA, PEG placement, and right hip ulcer. GI is following him for his PEG tube removal as discussed with the patient. He has agreed to get his PEG tube removed as an outpatient. The patient is currently on Invanz antibiotic for his right hip ulcer per ID, and he is receiving bacitracin ointment cream to put around his PEG tube. For his bowel regimen, he is on Dulcolax suppository twice a day and MiraLAX twice a day. We will continue to provide supportive care to the patient and follow the plan of care per PCP, surgeon and Infectious Disease. This plan was discussed with Dr. Hernandez. Please call us for any further questions or concerns. Dictated by GIOVANA Dawn for Willian Hernandez MD cc: Willian Hernandez MD I have seen and examined the patient myself and I agree with the above plan of care. I have discussed the above with the patient and all questions were answered. Please call us with any further questions. CLAIRE
[2019-04-18] MEDS: INVANZ 1 GM/NS 1 GM/50 ML IVPB IV SCH (13:16)
--- NOTE | 2019-04-18 14:31 | INFECTIOUS DISEASE PROGRESS NO ---
DATE: 04/18/2019 PRESENT ILLNESS: The patient has an extended spectrum beta lactamase producing E coli infected right hip decubitus ulcer. MEDICATIONS: The patient has been receiving ertapenem; this is day 4 of treatment with ertapenem. OBJECTIVE: Abdomen: The patient's abdomen is soft and nontender. There is a G-tube in place. There is no purulence or erythema at the site. Neurologic: The patient is awake. He has a left hemiplegia. LAB AND X-RAY: CBC shows a white count of 3910, hemoglobin 11.7, and platelet count 182,000. Creatinine is 0.5. GFR is greater than 60. Urinalysis was negative for bacteria and white cells. Chest x-ray shows no acute disease. ASSESSMENT AND PLAN: The patient has an infected right hip decubitus ulcer. I am going to continue ertapenem, and I have put in a call for Dr. Beebe to see if the patient will be having debridement of the hip. COMORBIDITIES: The patient has had a stroke. He also has gastroesophageal reflux disease, anemia of chronic disease, esophagitis and gastritis. cc: Mansoor Chamberlani MD
--- NOTE | 2019-04-18 19:34 | PROGRESS NOTE ---
DATE: 04/18/2019 INTERVAL HISTORY: No acute events overnight. SUBJECTIVE: Mr. Jose denies chest pain, shortness of breath. He is frustrated of being in the hospital. He denies any undue cough. OBJECTIVE: Vital signs: Temperature 97.9 degrees, pulse 86, respiratory 18, blood pressure 140/80, saturating 95% on room air. PHYSICAL EXAMINATION: Not in acute distress. Oral cavity is moist.Lungs: Air entry bilaterally equal. No wheeze, rhonchi, crackles. Cardiovascular: S1, S2 normal. No murmur or gallop. Abdomen: Soft, nontender. He has a PEG tube. Extremities: No lower extremity edema. He had a right lateral thigh ulcer about 10 x 5 cm in a triangular shape with a rolled-in margin with granulation tissue and some muscle layer exposed. He has violaceous pigmentation around it. He is able to move right upper and lower extremity spontaneously. He is only able to flicker left lower extremity. Not able to move left upper extremity. He is alert and oriented x3. INPUT AND OUTPUT: Suggests he has had a number of bowel movements and he wanted me to discontinue his suppositories and MiraLAX. LABS: Suggestive of low WBC, low hemoglobin, normal platelet count, normal electrolytes. No microbiological or imaging data. ASSESSMENT AND PLAN: 1. Right lateral thigh decubitus ulcer with extended spectrum beta-lactamases Escherichia coli infection. 2. 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 3. History of esophagitis. 4. Plan continue aspirin, statin, enoxaparin for deep vein thrombosis prophylaxis. 5. Continue metoprolol for essential hypertension, and add hydrochlorothiazide lisinopril in future as tolerated. 6. Continue intravenous ertapenem as per Infectious Disease recommendation. Appreciate Surgery recommendation about wound debridement. 7. He should follow up outpatient with Gastroenterology for removal of percutaneous endoscopic gastrostomy tube since his oral intake is adequate. 8. Disposition. His insurance would likely approve his rehab stay pretty soon. We arbitrarily decided to keep him in the hospital until Thursday to allow wound debridement. Based on that, we will aim for discharge on Thursday if he is able to get the surgery by then. If not, then general surgical team would try and follow-up him outpatient for local wound care. Plan of care discussed with the patient. His questions have been answered. cc: Sai Garcia MD
[2019-04-18] MEDS: MELATONIN PO SCH (20:23)
[2019-04-18] MEDS: FLEXERIL PO SCH (20:23)
[2019-04-18] MEDS: LIPITOR PO SCH (20:23)
--- NOTE | 2019-04-18 21:22 | GENERAL SURGERY PROGRESS NOTE ---
DATE: 04/18/2019 SUBJECTIVE: Clinically about the same. No fevers. OBJECTIVE: Vital signs: Pulse 86, blood pressure 114/80, oxygen saturation 95%. General: He is alert. Cardiovascular: Normal rate. Integument: Warm and dry. Musculoskeletal exam: His right greater trochanteric decubitus wound shows persistent dry fibrinous tissue in the bed. No purulence. No hugh necrosis. LABORATORY DATA: I reviewed his labs. White count is 3, hematocrit is 37, creatinine 0.5. ASSESSMENT AND PLAN: A 58-year-old gentleman with right hip decubitus wound. Given the persistent fibrinous changes, I have recommended excisional debridement tomorrow in the operating room. We will make him n.p.o. at midnight. We discussed risk of bleeding, infection, subsequent procedures, anticipated recovery and prolonged healing. He understands all this and consents. cc: Vonda Bebee MD
[2019-04-19] MEDS: CYMBALTA PO SCH (11:15)
[2019-04-19] MEDS: ASPIRIN PO SCH (11:15)
[2019-04-19] MEDS: VITAMIN D PO SCH (11:15)
[2019-04-19] MEDS: LOPRESSOR PO SCH ×2 (11:16→21:04)
[2019-04-19] MEDS: NORVASC PO SCH (11:16)
[2019-04-19] MEDS: LOVENOX SUBQ SCH (11:16)
[2019-04-19] MEDS: NORCO-7.5 PO PRN ×3 (11:19→19:42)
[2019-04-19] MEDS: INVANZ 1 GM/NS 1 GM/50 ML IVPB IV SCH (13:57)
[2019-04-19] MEDS: SANTYL OINT TOP SCH (15:54)
--- NOTE | 2019-04-19 19:20 | OPERATIVE NOTE ---
PROCEDURE DATE: 04/19/2019 PREOPERATIVE DIAGNOSIS: Necrotic decubitus ulcer right greater trochanteric hip. POSTOPERATIVE DIAGNOSIS: Necrotic decubitus ulcer right greater trochanteric hip. PROCEDURE PERFORMED: Excisional debridement down to the level of muscle, 12 x 5 cm x 3 cm deep decubitus wound. ESTIMATED BLOOD LOSS: 10 mL. SPECIMEN: Necrotic tissue. ANESTHESIA: General. INDICATION: A 58-year-old gentleman who was found down after a stroke and developed a decubitus wound from lying on his floor for greater than a day. OPERATIVE FINDINGS: There was necrotic devascularized fatty tissue extending down to the muscle fascia totaling 12 x 5 cm with a 3 cm deep wound. There was no exposed bone. There was no purulence. OPERATIVE NOTE: Risks, benefits and alternatives were discussed. The patient consented to the procedure. Seen preoperatively and surgical site was confirmed and marked. He was taken operating room placed supine position where general anesthesia was induced. His hip was prepped with Betadine and draped in usual fashion. After time-out, a 10 blade scalpel used to excise the necrotic tissue back to healthy bleeding tissue. A curette was then used. We lavaged the wound with Vashe, noted hemostasis and then a Vashe and Kerlix were placed in the wound as well as 4x4s, ABD pads. He tolerated it well. No complication. cc: Vonda Beebe MD
[2019-04-19] MEDS: MELATONIN PO SCH (21:04)
[2019-04-19] MEDS: FLEXERIL PO SCH (21:04)
[2019-04-19] MEDS: LIPITOR PO SCH (21:04)
--- NOTE | 2019-04-19 22:29 | PROGRESS NOTE ---
DATE: 04/19/2019 SUBJECTIVE: The patient is resting comfortably. He just returned from his hip debridement. OBJECTIVE: Vital Signs: Temperature 97.8 degrees, blood pressure 112/74, heart rate 95, respirations 16, O2 saturation is 94% on 2 L nasal cannula. General: This is a chronically ill- appearing, elderly male, lying in bed in no acute distress. Heart: S1, S2 normal. Tachycardic. Lungs: Equal air entry bilaterally. No wheezing. Abdomen: Positive bowel sounds. Soft, nontender, nondistended. Extremities: No edema. No cyanosis. Neurologic: The patient is alert and oriented x3. LABORATORY DATA: White blood cell count 3.9, hemoglobin 11, hematocrit 37, platelets 182,000. Sodium 138, potassium 3.6, chloride 98, CO2 of 27, BUN 17, creatinine 0.5, glucose 100. ASSESSMENT AND PLAN: 1. Right hip un-stageable decubitus infection secondary to extended spectrum beta-lactamase Escherichia coli, status post debridement. Continue with antibiotic therapy as directed by Dr. Chamberlain. Further management as per the general surgeon. 2. Hypertension. Continue on Lopressor, lisinopril, and hydrochlorothiazide. 3. History of cerebrovascular accident with right carotid artery thrombosis. Continue on Lovenox. 4. Dyslipidemia. Continue on Lipitor. 5. Vitamin D deficiency. Continue with vitamin D replacement. cc: Ciarra Henry MD
[2019-04-20] MEDS: VITAMIN D PO SCH (09:16)
[2019-04-20] MEDS: NORVASC PO SCH (09:16)
[2019-04-20] MEDS: LOVENOX SUBQ SCH (09:16)
[2019-04-20] MEDS: ASPIRIN PO SCH (09:16)
[2019-04-20] MEDS: NORCO-7.5 PO PRN ×4 (09:16→21:30)
[2019-04-20] MEDS: LOPRESSOR PO SCH ×2 (09:17→20:38)
[2019-04-20] MEDS: CYMBALTA PO SCH (09:18)
[2019-04-20] MEDS: INVANZ 1 GM/NS 1 GM/50 ML IVPB IV SCH (13:13)
[2019-04-20] MEDS: PERIDEX MT SCH ×2 (17:52→20:38)
[2019-04-20] MEDS: VANCOCIN PO SCH ×2 (17:56→20:38)
[2019-04-20] MEDS: BACITRACIN OINTMENT TOP SCH ×2 (18:00→18:01)
--- NOTE | 2019-04-20 18:47 | PROGRESS NOTE ---
DATE: 04/20/2019 SUBJECTIVE: The patient is resting comfortably in bed. He has no complaints at this time. No acute events noted overnight. OBJECTIVE: Vital Signs: Temperature 98.7 degrees, blood pressure 105/74, heart rate 89, respirations 19, O2 saturation is 100% on 2 L nasal cannula. General: This is a chronically ill- appearing, elderly male, sitting in bed in no acute distress. Heart: S1, S2 normal. Regular rate and rhythm. Lungs: Equal air entry bilaterally. No wheezing. No rales. Abdomen: Positive bowel sounds. Soft, nontender, nondistended. Extremities: No edema. No cyanosis. Neurologic: The patient is alert and oriented x3. LABORATORY DATA: Reviewed. ASSESSMENT AND PLAN: 1. Right hip decubitus ulcer infection status post extensive debridement secondary to ESBL E.coli. Continue with wound care and antibiotic therapy. 2. Hypertension. Controlled. 3. History of cerebrovascular accident with right carotid artery thrombosis. Continue on aspirin. 4. Vitamin D deficiency. Continue with vitamin D replacement. 5. Dyslipidemia. Continue on Lipitor. Will consult PT. cc: Ciarra Henry MD MTDD
[2019-04-20] MEDS: LIPITOR PO SCH (20:38)
[2019-04-20] MEDS: MELATONIN PO SCH (20:38)
[2019-04-20] MEDS: FLEXERIL PO SCH (20:38)
--- NOTE | 2019-04-20 21:03 | GENERAL SURGERY PROGRESS NOTE ---
DATE: 04/20/2019 SUBJECTIVE: Doing okay. No fevers. No tachycardia. Dressing is intact. I reviewed his labs and his vital signs. ASSESSMENT AND PLAN: This is a 50-year-old gentleman status post excisional debridement of right side decubitus wound. From a surgical perspective, no plans for other inpatient procedures. Will determine a need for wound VAC based off progress as an outpatient. Otherwise, he is cleared for rehab. He will need Vashe dressings twice daily. Defer antibiotics to Dr. Chamberlain, although I think there was no evidence of gross purulence in the wound and no exposed bone. cc: Vonda Beebe MD
--- NOTE | 2019-04-20 21:06 | INFECTIOUS DISEASE PROGRESS NO ---
DATE: 04/20/2019 PRESENT ILLNESS: Mr. Jose is being treated for an extended-spectrum rckg-rotfotxfc-fudsyabsd Escherichia coli infected right hip ulcer. He is status post excisional debridement down to the muscle of that right hip. The patient is having frequent watery stools, and may have a C. difficile diarrhea. MEDICATION: Today is day 6 of ertapenem 1 g IV every 24 hours. OBJECTIVE: Vital signs: Temperature is 98.7 degrees, pulse rate 89, respiratory rate 19, blood pressure 105/74, O2 saturation is 93% on 2 L nasal cannula.General: This is a chronically ill- appearing, middle-aged gentleman. He is lying in the bed, currently in no acute distress. HEENT: Atraumatic, normocephalic. Oral mucous membranes are pink and moist. Conjunctivae are pink. Neck is supple. Trachea is midline. Cardiovascular: Heart rate is regular. S1, S2 noted. Respiratory: Lung sounds are clear to auscultation bilaterally. No work of breathing is noted. Abdomen is soft, round and nontender. Bowel sounds are active. The patient is complaining of frequent watery stools, which have been verified after talking to the nurse detail technician. Integumentary: Skin is warm and dry. There is a dressing in place to the right hip. That dressing was not removed at this time. Neurologic: He is awake, alert, oriented, and able to move his right side without difficulty. He has minimal use of his left lower extremity and flaccid left upper extremity, with pain during passive movement. LABORATORY AND X-RAY: None available today. ASSESSMENT AND PLAN: Mr. Jose has had debridement of an infected right hip. He is complaining of frequent, watery stools, which has been verified by the nurse tech. We will check him for Clostridium difficile toxin and antigen. He is receiving ertapenem, which we will continue. We will also start him on oral vancomycin, awaiting the results of the check for C. Diff. These plans have been discussed with and recommended by Dr. Chamberlain. COMORBIDITIES: for Mr. Jose include stroke, gastroesophageal reflux disease and anemia of chronic disease. Dictated by GIOVANA Medina for Mansoor Chamberlain MD cc: Mansoor Chamberlain MD [facility]
[2019-04-21] MEDS: NORCO-7.5 PO PRN ×4 (03:05→19:02)
[2019-04-21] MEDS: VANCOCIN PO SCH ×4 (03:05→21:17)
[2019-04-21] MEDS: PERIDEX MT SCH ×2 (10:33→21:17)
[2019-04-21] MEDS: LOPRESSOR PO SCH ×2 (10:33→21:17)
[2019-04-21] MEDS: ASPIRIN PO SCH (10:34)
[2019-04-21] MEDS: VITAMIN D PO SCH (10:35)
[2019-04-21] MEDS: CYMBALTA PO SCH (10:36)
[2019-04-21] MEDS: LOVENOX SUBQ SCH (10:36)
[2019-04-21] MEDS: BACITRACIN OINTMENT TOP SCH (10:41)
[2019-04-21] MEDS: NORVASC PO SCH (11:15)
[2019-04-21] MEDS: INVANZ 1 GM/NS 1 GM/50 ML IVPB IV SCH (15:00)
[2019-04-21] MEDS: SANTYL OINT TOP SCH (15:10)
[2019-04-21] MEDS: MELATONIN PO SCH (21:17)
[2019-04-21] MEDS: LIPITOR PO SCH (21:17)
[2019-04-21] MEDS: FLEXERIL PO SCH (21:17)
[2019-04-22] MEDS: VANCOCIN PO SCH ×2 (03:14→09:23)
--- NOTE | 2019-04-22 03:53 | PROGRESS NOTE ---
DATE: 04/21/2019 SUBJECTIVE: The patient is resting comfortably in bed. No complaints at this time. OBJECTIVE: Vital Signs: Temperature 97.7 degrees, blood pressure 114/76, heart rate 72, respirations 16, O2 saturation 97% on room air. General: This is a chronically ill-appearing elderly male, lying in bed in no acute distress. Heart: S1, S2 normal. Regular rate and rhythm. Lungs: Equal air entry bilaterally. No wheezing. No rales. Abdomen: Positive bowel sounds. Soft, nontender, nondistended. Extremities: There is a dressing in place on the right hip. Neurologic: The patient is alert and oriented x3. The patient has a left-sided hemiparesis. LABS: Reviewed. ASSESSMENT AND PLAN: 1. Right hip decubitus infection secondary to extended-spectrum beta lactamase Escherichia coli, status post extensive debridement. Continue with wound care and antibiotic therapy. 2. Hypertension. Controlled. 3. History of cerebrovascular accident with a right carotid artery stenosis. Continue on aspirin. 4. Dyslipidemia. Continue on Lipitor. 5. Vitamin D deficiency. Continue vitamin D replacement. 6. Deep vein thrombosis prophylaxis. Continue on Lovenox. 7. Disposition. Continue with physical therapy. We will consult with [employer] for discharge planning. cc: Ciarra Henry MD
[2019-04-22] MEDS: NORCO-7.5 PO PRN ×4 (05:58→22:43)
[2019-04-22] MEDS: PERIDEX MT SCH ×2 (09:22→20:32)
[2019-04-22] MEDS: LOVENOX SUBQ SCH (09:23)
[2019-04-22] MEDS: ASPIRIN PO SCH (09:23)
[2019-04-22] MEDS: VITAMIN D PO SCH (09:23)
[2019-04-22] MEDS: CYMBALTA PO SCH (09:23)
[2019-04-22] MEDS: LOPRESSOR PO SCH ×2 (09:24→20:32)
[2019-04-22] MEDS: NORVASC PO SCH (09:24)
[2019-04-22] MEDS: SANTYL OINT TOP SCH ×2 (09:25→09:27)
[2019-04-22] MEDS: BACITRACIN OINTMENT TOP SCH (09:27)
[2019-04-22] MEDS ORDERED: DULCOLAX PR ONE (10:13)
[2019-04-22] MEDS: MIRALAX PO SCH (11:19)
[2019-04-22] MEDS: INVANZ 1 GM/NS 1 GM/50 ML IVPB IV SCH (15:18)
--- NOTE | 2019-04-22 17:51 | PROGRESS NOTE ---
DATE: 04/22/2019 SUBJECTIVE: The patient states that he did not sleep well last night due to frequent interruptions by nursing staff. OBJECTIVE: Vital Signs: Temperature 98.3 degrees, blood pressure 118/75, heart rate 86, respirations 16, O2 saturation 93% on room air. General: This is a chronically ill-appearing elderly male lying in bed in no acute distress. Heart: S1, S2. Normal. Lungs: Clear to auscultation bilaterally. Abdomen: Positive bowel sounds. Soft, nontender, nondistended. Extremities: The patient has a clean dry dressing applied to the right hip. Neurologic: The patient is alert and oriented x4. He does have left-sided hemiparesis. LABORATORY: None. ASSESSMENT AND PLAN: 1. Right hip decubitus infection secondary to extended-spectrum beta-lactamases Escherichia coli, status post extensive debridement. Continue with wound care and antibiotic therapy. 2. History of cerebrovascular accident with right carotid artery stenosis. Continue on aspirin. 3. Hypertension. Controlled. 4. Dyslipidemia. Continue on Lipitor. 5. Vitamin D deficiency. Continue on vitamin D replacement. 6. Deconditioning. Continue with physical therapy. 7. Deep vein thrombosis prophylaxis. Continue on Lovenox. 8. Disposition. The patient has requested a referral to [facility], which is the facility he was located at [facility] prior to admission to the hospital. We will consult with Software Quality Assurance Analyst to assist with an evaluation. cc: Ciarra Henry MD MTDD
--- NOTE | 2019-04-22 17:56 | INFECTIOUS DISEASE PROGRESS NO ---
DATE: 04/22/2019 PRESENT ILLNESS: Mr. Jose is being treated for an extended-spectrum beta- lactamase producing Escherichia coli infected right hip ulcer. He is status post excisional debridement of the right hip. MEDICATIONS: Today is day 8 of ertapenem 1 g IV every 24 hours. PHYSICAL EXAMINATION: Vital Signs: Temperature is 98.3 degrees, pulse rate 96, respiratory rate 16, blood pressure 116/73. O2 saturation is 93% on room air. General: This is a chronically ill- appearing, middle-aged gentleman. He is lying in bed, currently in no acute distress. HEENT: Atraumatic, normocephalic. Oral mucous membranes are pink and moist. Conjunctivae are pink. Neck: Supple. Trachea is midline. Respiratory: Lung sounds are bilaterally clear to auscultation. No work of breathing is noted. Cardiovascular: S1-S2 noted with regular heart rate. Abdomen: Soft, round, nontender. Bowel sounds are active. Integumentary: Skin is warm and dry. Dressing in place is in place to the right hip, and not removed at this time. Neurologic: He is awake, alert and somewhat forgetful. Left upper extremity seems to be flaccid with pain to passive movement. Left lower extremity movement is minimal. Movement on the right side is weak. LABORATORY AND X-RAY: None available today. ASSESSMENT AND PLAN: Mr. Jose is status post right infected hip debridement, and is receiving daily ertapenem, which we will continue. There was some concern about watery, frequent stools, however, he has not had a stool recently and no specimen has been obtained. We will go ahead and discontinue check of Clostridium difficile toxin and antigen and discontinue oral vancomycin. These plans have been discussed with and recommended by Dr. Chamberlain. COMORBIDITIES: Stroke, gastroesophageal reflux disease, and anemia of chronic disease. Dictated by GIOVANA Medina for Mansoor Chamberlain MD cc: Mansoor Chamberlain MD [facility]PITALJohanne
[2019-04-22] MEDS: MELATONIN PO SCH (20:32)
[2019-04-22] MEDS: FLEXERIL PO SCH (20:33)
[2019-04-22] MEDS: LIPITOR PO SCH (20:33)
[2019-04-23] MEDS: NORCO-7.5 PO PRN ×5 (03:53→21:54)
[2019-04-23 07:20] LABS: HEMATOCRIT 34.1 % (42.0-52.0); HEMOGLOBIN 10.9 g/dL (14.0-18.0); MCH 26.1 PG (27-31); MCV 81.8 FL (81-99); MPV 10.9 FL (7.4-10.4); RBC 4.17 XMIL (4.7-6.1); RDW 14.2 % (11.5-14.5); WBC 4.47 X1000 (4.8-10.8)
[2019-04-23 08:15] LABS: AGAP 12; ALBUMIN 3.5 g/dL (3.5-5.0); ALKALINE PHOSPHATASE 55 U/L (32-122); BUN 11 mg/dL (8-22); CALCIUM 8.7 mg/dL (8.8-10.2); CHLORIDE 103 mmol/L (98-107); COSMO 280; CREATININE 0.5 mg/dL (0.7-1.2); ESTIMATED GFR > 60; GLUCOSE 89 mg/dL (70-104); GOT 18 U/L (10-34); GPT 19 U/L (10-44); POTASSIUM 3.1 mmol/L (3.5-5.1); SODIUM 141 mmol/L (136-145); TCO2 26 mmol/L (25-35); TOTAL BILIRUBIN 0.32 mg/dL (0.20-1.00); TOTAL PROTEIN 6.9 g/dL (6.3-8.3)
[2019-04-23] MEDS ORDERED: KLOR-CON PO ONE (08:33)
[2019-04-23] MEDS: PERIDEX MT SCH ×2 (08:33→21:53)
[2019-04-23] MEDS: NORVASC PO SCH (08:34)
[2019-04-23] MEDS: CYMBALTA PO SCH (08:34)
[2019-04-23] MEDS: ASPIRIN PO SCH (08:34)
[2019-04-23] MEDS: LOPRESSOR PO SCH ×2 (08:35→21:53)
[2019-04-23] MEDS: LOVENOX SUBQ SCH (08:35)
[2019-04-23] MEDS: VITAMIN D PO SCH (08:35)
[2019-04-23] MEDS: MIRALAX PO SCH (12:37)
[2019-04-23] MEDS: INVANZ 1 GM/NS 1 GM/50 ML IVPB IV SCH (14:26)
[2019-04-23] MEDS: BACITRACIN OINTMENT TOP SCH (17:26)
[2019-04-23] MEDS: SANTYL OINT TOP SCH (17:26)
--- NOTE | 2019-04-23 21:18 | PROGRESS NOTE ---
DATE: 04/23/2019 SUBJECTIVE: The patient is resting comfortably. He complains of pain in his back. OBJECTIVE: Vital signs: Temperature 98.6 degrees, blood pressure 108/64, heart rate 90, respirations 16, O2 saturation 95% on room air. General: This is a chronically ill-appearing elderly male lying in bed in no acute distress. Heart: S1, S2 normal, regular rate and rhythm. Lungs: Clear to auscultation bilaterally. Abdomen: Positive bowel sounds, soft, nontender, nondistended. Extremities: No edema, no cyanosis. Neurologic: The patient is alert and oriented x3. LABS: Sodium 141, potassium 3.1, chloride 103, CO2 26, BUN 11, creatinine 0.5, glucose 89, AST 18, ALT 19. ASSESSMENT AND PLAN: 1. Right hip decubitus infection secondary to Extended-Spectrum Beta-Lactamase (ESBL) Escherichia coli. Status post extensive debridement. Continue on Invanz and wound care. 2. History of cerebrovascular accident (CVA) with right carotid artery stenosis. Continue on aspirin. 3. Hypertension. Controlled. 4. Dyslipidemia. Continue on Lipitor. 5. Vitamin D deficiency. Continue vitamin D replacement. 6. Deconditioning. Continue with physical therapy. 7. Deep vein thrombosis prophylaxis. Continue on Lovenox. 8. Disposition. The patient has requested an [facility] referral. [employer] to assist with placement. cc: Ciarra Henry MD MTDD
[2019-04-23] MEDS: MELATONIN PO SCH (21:54)
[2019-04-23] MEDS: LIPITOR PO SCH (21:54)
[2019-04-23] MEDS: FLEXERIL PO SCH (21:54)
[2019-04-24] MEDS: NORCO-7.5 PO PRN ×4 (03:01→22:05)
[2019-04-24] MEDS: MIRALAX PO SCH (10:52)
[2019-04-24] MEDS: LOPRESSOR PO SCH ×2 (10:54→22:05)
[2019-04-24] MEDS: ASPIRIN PO SCH (10:54)
[2019-04-24] MEDS: VITAMIN D PO SCH (10:54)
[2019-04-24] MEDS: CYMBALTA PO SCH (10:55)
[2019-04-24] MEDS: LOVENOX SUBQ SCH ×2 (10:56→11:05)
[2019-04-24] MEDS: NORVASC PO SCH (10:56)
[2019-04-24] MEDS: PERIDEX MT SCH ×3 (10:57→22:04)
[2019-04-24] MEDS: BACITRACIN OINTMENT TOP SCH (10:59)
[2019-04-24] MEDS: SANTYL OINT TOP SCH (11:00)
[2019-04-24] MEDS: INVANZ 1 GM/NS 1 GM/50 ML IVPB IV SCH (13:58)
--- NOTE | 2019-04-24 18:17 | PROGRESS NOTE ---
DATE: 04/24/2019 SUBJECTIVE: The patient is resting comfortably in bed. He has no complaints. OBJECTIVE: Vital Signs: Temperature 97.5 degrees, blood pressure 120/80, heart rate 80, respirations 18, O2 saturation is 98% on room air. General: This is a chronically ill-appearing male lying in bed, in no acute distress. Heart: S1, S2. Normal. Lungs: Equal air entry bilaterally. No wheezing. No rales. Abdomen: Positive bowel sounds. Soft, nontender, nondistended. Extremities: There is a clean, dry dressing to the right hip. No edema. Neurologic: The patient is alert and oriented x3. LABS: White blood cell count 4, hemoglobin 10, hematocrit 34, platelets 198,000. Sodium 141, potassium 3.1, calcium 8.7, BUN 11, creatinine 0.5, glucose 89. ASSESSMENT AND PLAN: 1. Right hip decubitus infection secondary to extended spectrum beta lactamase Escherichia coli, status post extensive debridement. Continue on Invanz and wound care. 2. History of cerebrovascular accident with right carotid artery stenosis. Continue on aspirin. 3. Hypertension. Controlled. 4. Dyslipidemia. Continue on Lipitor. 5. Deconditioning. Continue with physical therapy. 6. Vitamin D deficiency. Continue with vitamin D replacement. 7. Deep vein thrombosis prophylaxis. Continue on Lovenox. 8. Disposition. The patient has requested an [facility] referral. [facility] has been consulted to assist with placement. cc: Ciarra Henry MD
[2019-04-24] MEDS: FLEXERIL PO SCH (22:04)
[2019-04-24] MEDS: MELATONIN PO SCH (22:04)
[2019-04-24] MEDS: LIPITOR PO SCH (22:04)
[2019-04-25] MEDS: NORCO-7.5 PO PRN ×2 (06:50→13:07)
[2019-04-25] MEDS: VITAMIN D PO SCH (09:47)
[2019-04-25] MEDS: CYMBALTA PO SCH (09:47)
[2019-04-25] MEDS: PERIDEX MT SCH (09:47)
[2019-04-25] MEDS: ASPIRIN PO SCH (09:47)
[2019-04-25] MEDS: LOPRESSOR PO SCH (09:48)
[2019-04-25] MEDS: NORVASC PO SCH (09:48)
[2019-04-25] MEDS: LOVENOX SUBQ SCH (09:48)
[2019-04-25] MEDS: MIRALAX PO SCH (09:49)
--- NOTE | 2019-04-25 11:01 | DISCHARGE SUMMARY ---
ADMISSION DATE: 04/11/2019 DISCHARGE DATE: FINAL DISCHARGE DIAGNOSES: 1. Right hip decubitus infection secondary to extended-spectrum beta-lactamase Escherichia coli, status post excisional debridement down to the muscle. 2. History of cerebrovascular accident. 3. Right carotid artery thrombosis. 4. Dyslipidemia. 5. Vitamin D deficiency. 6. Hypertension. CONSULTATIONS: 1. General Surgery consultation with Dr. Beebe. 2. Infectious Disease consultation with Dr. Chamberlain. PROCEDURE: Excisional debridement of the right greater trochanteric hip performed on 04/19/2019. HOSPITAL COURSE: Mr. Jose is a 58-year-old male with a history of a CVA with residual hemiparesis, hypertension and dyslipidemia who was transferred from [facility] after the patient was noted to have a necrotic decubitus ulcer involving the right greater trochanteric hip. The patient was admitted to the hospitalist service. Blood and wound cultures were obtained. The patient was started on broad-spectrum antibiotics. Infectious Disease, as well as General Surgery, were consulted due to the nature of the wound. Ultimately, the wound culture grew out extended-spectrum beta-lactamase Escherichia coli. The patient was then switched to Invanz. The patient was taken to the OR on 04/19/2019 and underwent an excisional debridement down to the muscle. Following the procedure, the patient received wound care to the right hip and antibiotic therapy daily. The patient continued to improve clinically. The patient has currently received 10 days of antibiotic therapy. He will need a total of 14 days of therapy. At this time, the patient is medically stable for discharge to an inpatient rehabilitation center. DISCHARGE MEDICATIONS: 1. Lipitor 40 mg oral at bedtime. 2. MiraLAX 17 grams oral daily. 3. Invanz 1 gram IV every 24 hours x4 more days. 4. [employer] 7.5/325 one tab oral every 6 hours p.r.n. for pain. 5. Aspirin 325 mg oral daily. 6. Norvasc 5 mg oral daily. 7. Eliquis 2.5 mg oral twice a day. 8. Melatonin 6 mg oral at bedtime. 9. Lopressor 12.5 mg oral twice a day. 10. Protonix 40 mg p.o. daily. 11. Vitamin D3 at 5000 units oral daily. 12. Cymbalta 30 mg oral daily. 13. Flexeril 10 mg oral at bedtime. DISCHARGE DIET: Low-sodium low-cholesterol diet. ACTIVITY: As tolerated. FOLLOWUP INSTRUCTIONS: The patient will need to follow up with Dr. Beebe in 2 weeks. The patient will need to follow up with Dr. aMnsoor Chamberlain in 2 weeks. cc: Ciarra Henry MD
[2019-04-25 11:16] VITALS: BP 111/80
[2019-04-25] MEDS: BACITRACIN OINTMENT TOP SCH (11:27)
[2019-04-25] MEDS: SANTYL OINT TOP SCH (11:27)
[2019-04-25] MEDS: INVANZ 1 GM/NS 1 GM/50 ML IVPB IV SCH (13:08)
== END 2019-04-25 14:30 | DRG 981 ==
LOC: 4N 20:50
PROVIDERS: ATTEND Internal Medicine